=== PATIENT | male | born 1950 | race African-American/Black ===

== ENCOUNTER 2019-07-13 11:59 | Inpatient (IN) | payer MEDICARE, BC ==
[2019-07-13] VITALS (13 sets, daily range): BP systolic 93–123; BP diastolic 64–93; BMI 28.6
[~2019-07-13] VITALS: Ht 177.8 cm; Wt 94.7 kg
--- NOTE | 2019-07-13 14:00 | NUR ---
SPOKE TO RN AT [facility] FOR REPORT - REPORT WAS GIVEN TO CNC LASER OPERATOR - OUTSIDE RN REPEATED REPORT TO THIS RN - 1410 PT TRANSFERRED TO UNIT VIA EMT - VIA STRETCHER WITH TWO EMS PERSONS - TRANSFERRED TO BED - O2 PLACED AT 6 L/NC
[2019-07-13 15:14] LABS: APPEARANCE CLOUDY (CLEAR); BILIRUBIN NEGATIVE (NEGATIVE); COLOR DK YELLOW (YELLOW); GLUCOSE NEGATIVE (NEGATIVE); KETONE NEGATIVE (NEGATIVE); NITRITE NEGATIVE (NEGATIVE); PROTEIN 3+ mg/dL (NEGATIVE); RED CELLS - URINE 0-5 /hpf (0-5); SPECIFIC GRAVITY 1.025 (1.005-1.020); UROBILINOGEN NORMAL (NORMAL); WHITE CELLS - URINE NSEEN /hpf (0-5)
[2019-07-13 15:18] LABS: CREATININE - URINE 220.9 mg/dL (30-125); PROTEIN - URINE 525.7 mg/dL (0.0-11.9)
[2019-07-13] MEDS ORDERED: PACERONE400 MG PO (15:20)
[2019-07-13] MEDS ORDERED: BAYER CHEWABLE81 MG PO (15:20)
[2019-07-13] MEDS ORDERED: LINZESS145 MCG PO (15:21)
[2019-07-13] MEDS ORDERED: FUROSEMIDE40 MG PO (15:21)
[2019-07-13] MEDS ORDERED: MULTI-DAY VITAM1 TAB PO (15:23)
[2019-07-13] MEDS ORDERED: K-DUR20 MEQ PO (15:23)
[2019-07-13 15:24] LABS: BASOPHILS 0.1 % (0-2); EOSINOPHILS 2.8 % (0-7); HEMATOCRIT 39.4 % (42.0-54.0); HEMOGLOBIN 13.3 g/dL (13.5-17.5); IMMATURE GRANULOCYTES 0.8 % (0-5); LYMPHOCYTES 2.8 % (15-50); MCH 24.8 pg (26.0-34.0); MCHC 33.8 g/dL (31.0-37.0); MCV 73.4 fL (80.0-100.0); MONOCYTES 6.3 % (2-11); NEUTROPHILS 87.2 % (40-80); PLATELET COUNT 92 10x3/uL (130-400); RBC 5.37 10x6/uL (4.20-6.10); RDW 19.4 % (11.5-14.5); WBC 15.1 10x3/uL (4.8-10.8)
[2019-07-13] MEDS ORDERED: SENNA LAXATIVE8.6 MG PO (15:24)
[2019-07-13] MEDS ORDERED: METOLAZONE2.5 MG PO (15:26)
[2019-07-13] MEDS ORDERED: ENTRESTO 24 MG1 EACH PO (15:27)
[2019-07-13] MEDS ORDERED: MAGNESIUM OXID250 MG PO (15:28)
[2019-07-13] MEDS ORDERED: COREG 3.1253.125 MG PO (15:28)
[2019-07-13] MEDS ORDERED: ELIQUIS5 MG PO (15:28)
[2019-07-13] MEDS ORDERED: REMERON15 MG PO (15:29)
[2019-07-13] MEDS ORDERED: ZYLOPRIM300 MG PO (15:30)
[2019-07-13] MEDS ORDERED: COLCRYS0.6 MG PO (15:30)
[2019-07-13] MEDS ORDERED: OXYBUTYNIN CHLOR5 MG PO (15:31)
[2019-07-13 15:33] LABS: APTT 32.6 SECONDS (22.8-39.4); PROTIME 17.5 SECONDS (11.6-15.0)
[2019-07-13 15:50] LABS: D-DIMER-QUANTITATIVE > 20.00 ug/mLFEU (0.20-0.54)
--- NOTE | 2019-07-13 15:50 | NUR ---
NOTIFIED BY LAB O F CRITICAL LAB D-DIMER >20.00 - NOTIFIED DR. HALL - ORDERED VQ SCAN AND TRYALISYS PLACEMENT - CONSULTED MIKEY - PAGED PER PROTOCOL
[2019-07-13 15:56] LABS: CKMB 1.4 U/L (0.0-3.6); CREATINE KINASE 273 UL (21-232)
--- NOTE | 2019-07-13 15:59 | NUR ---
NOTIFIED MED IMAGING OF VQ SCAN CRITICAL
--- NOTE | 2019-07-13 16:11 | NUR ---
DISCUSSED TRIALYSIS PLACEMENT WITH PT - PT AGREED - CPOC
[2019-07-13 16:14] LABS: ALBUMIN 2.9 g/dL (3.4-5.0); ANION GAP 20.8 mmol/L (8-16); BILIRUBIN - TOTAL 1.45 mg/dL (0.2-1.3); CARBON DIOXIDE 22.4 mmol/L (21.0-32.0); CREATININE - SERUM 4.5 mg/dL (0.6-1.3); MAGNESIUM - SERUM 2.1 mg/dL (1.8-2.4); PROTEIN - SERUM 6.5 g/dL (6.4-8.2); T4 THYROXIN - FREE 1.64 ng/dL (0.76-1.46); THYROID STIMULATING HORMONE 3.34 uIU/mL (0.36-3.74)
[2019-07-13 16:16] LABS: POTASSIUM - SERUM 6.2 mmol/L (3.5-5.1)
[2019-07-13 16:19] LABS: TROPONIN-I 0.303 ng/mL (0.000-0.060)
[2019-07-13 16:30] LABS: % SATURATION 55 % (15-55); IRON 106 ug/dl (35-150); TOTAL IRON BIND CAPACITY 191 ug/dl (260-445); UNSAT IRON BIND CAPACITY 85 ug/dl (150-375)
--- NOTE | 2019-07-13 17:15 | NUR ---
DR. JENSEN ON UNIT FOR TRIALYSISI PLACEMENT - ATTEMPT X 2 - 4X4 PLACED ON RIGHT SIDE IJ - CLEANED PT AND CHNEGED BED CLOTHES - XRAY AT BEDSIDE FOR ASSESSMENT - DR. JENSEN ORDERED ABLE TO USE IJ -
--- NOTE | 2019-07-13 18:25 | NUR ---
DR. JENSEN CALLED - WILL BE ON UNIT FOR TRIALYSIS NEEDS 19 OR 20 CURVED, AND STAT ULTRASOUND. PER COLLECTIONS OFFICER
--- NOTE | 2019-07-13 19:30 | NUR ---
REPORT GIVEN TO ONCOMING RN - PT TRANSFERED TO [facility] FOR VJ SCAN PER ORDER -
--- NOTE | 2019-07-13 19:30 | NUR ---
REPORT RECEIVED FROM OFFGOING NURSE. PT IN RADIOLOGY FOR VQ SCAN WITH DAY SHIFT CHARGE NURSE NITHIN VILLASEÑOR. AFTER RECEIVING REPORT THIS NURSE WENT TO PT IN RADIOLOGY. PORTABLE MONITOR NOT WORKING IN RADIOLOGY PT ON DOBUTAMINE GTT PT DOES ANSWER QUESTIONS APPROPRIATELY WILL FULLY ASSESS WHEN BACK TO ICU ROOM.
--- NOTE | 2019-07-13 20:15 | NUR ---
PT BACK TO ROOM FROM RADIOLOGY PLACED BACK ON GOLF COURSE RANGER.
--- NOTE | 2019-07-13 20:15 | NUR ---
INITIAL ASSESSMENT COMPLETE PT ORIENTED TO PERSON PLACE NOT TO TIME AND DOES NOT UNDERSTAND WHY HE IS IN ICU. NEERU FOLLOWS COMMANDS. DENIES PAIN AT THIS TIME. CM ALARMS ON AND AUDIBLE. PT HAS PACER/DEFIB HE STATES WAS PLACED END OF LAST YEAR. RESP SHALLOW ENCOURAGED PT TO BREATHE DEEP AND TCDB. O2 PER HFNC AT 8LPM O2 SAT 96%. REL CLEAR BREATH SOUNDS. ABD SOFT ACTIVE BS. HENDRIX PRESENT AND DRAINING TO BSD. PPP BLE WITH GENERALIZED EDEMA. PT HAS RIGHT IJ TRIALYSIS WITH DOBUTAMINE INFUSING AT SET RATE OF [address] JENSEN PLACED AFTER FAILED ATTEMPT TO LEFT IJ, DRESSING TO LEFT IJ CLEAN DRY AND INTACT. SKIN WDI. BED LOW CALL LIGHT IN REACH SR UP TIMES 3 FOR BED MOBILITY AND SAFETY. WILL CONTINUE TO MONITOR
--- NOTE | 2019-07-13 20:30 | NUR ---
PTS FAMILY AND TWO SONS AT BEDSIDE FOR VISITATION UPDATE GIVEN AND QUESTIONS ANSWERED.
--- NOTE | 2019-07-13 22:00 | NUR ---
ANSWERED PTS CALL LIGHT HE IS REQUESTING BED ARSHAD.
--- NOTE | 2019-07-13 22:15 | NUR ---
ANSWERED PTS CALL LIGHT FINISHED USING BED ARSHAD SMALL LIGHT BROWN LIQUID STOOL CHG BATH AND COMPLETE LINEN CHANGE. PT ABLE TO TURN INDEPENDENTLY BUT DOES GET SOB WITH EXERTION.
--- NOTE | 2019-07-13 22:45 | NUR ---
PATIENT ACCIDENTALLY PULLED IV TO RT HAND. IV RESITED. 20 GAUGE TO RT FOREARM. FLUIDS CONTINUED. PATIENT TOLERATED WELL.
[2019-07-13 22:51] LABS: CKMB 1.3 U/L (0.0-3.6); CREATINE KINASE 253 UL (21-232)
[2019-07-13 22:59] LABS: TROPONIN-I 0.336 ng/mL (0.000-0.060)
--- NOTE | 2019-07-13 23:40 | NUR ---
DIE SETTER AT BEDSIDE
--- NOTE | 2019-07-13 23:54 | NUR ---
DR HALL INFORMED VIA PHONE DVT TO RIGHT LEG ORDERED LOVENOX PT ALREADY ON LOVENOX
[2019-07-14] VITALS (25 sets, daily range): BP systolic 83–123; BP diastolic 43–94
--- NOTE | 2019-07-14 02:33 | NUR ---
ANSWERED PATIENT CALL LIGHT, PATIENT DONE WITH BED ARSHAD. PATIENT HAD LARGE AMOUNT OF LIQUID LIGHT BROWN STOOLS. COMPLETE BED PAD CHANGE AND GOWN CHANGE. PATIENT POSITIONED, SHEET PROVIDED. BED LOWERED/LOCKED AND CALL LIGHT WITHIN REACH. WILL CONTINUE TO MONITOR.
--- NOTE | 2019-07-14 04:00 | NUR ---
ANSWERED PTS CALL LIGHT REQUESTING BED ARSHAD MODERATE LIQUID BROWN STOOL PARTIAL LINEN CHANGE PT ABLE TO REPOSITION SELF
[2019-07-14 05:46] LABS: BASOPHILS 0.1 % (0-2); EOSINOPHILS 0.1 % (0-7); HEMATOCRIT 32.8 % (42.0-54.0); IMMATURE GRANULOCYTES 0.4 % (0-5); LYMPHOCYTES 3.4 % (15-50); MCH 24.2 pg (26.0-34.0); MCHC 33.5 g/dL (31.0-37.0); MCV 72.2 fL (80.0-100.0); RBC 4.54 10x6/uL (4.20-6.10); RDW 18.7 % (11.5-14.5); WBC 13.6 10x3/uL (4.8-10.8)
[2019-07-14 05:49] LABS: PLATELET COUNT 69 10x3/uL (130-400)
[2019-07-14 06:23] LABS: CALCIUM 8.3 mg/dL (8.5-10.1); CARBON DIOXIDE 22.7 mmol/L (21.0-32.0); CHLORIDE - SERUM 107 mmol/L (98-107); CKMB 3.1 U/L (0.0-3.6); CREATINE KINASE 260 UL (21-232); CREATININE - SERUM 4.4 mg/dL (0.6-1.3); SODIUM 141 mmol/L (136-145); UREA NITROGEN 57 mg/dL (7-18); VANCOMYCIN - TROUGH 10.3 ug/mL (10.0-20.0); eGFR NON AFRICAN AMERICAN 14 mL/min (90-120)
[2019-07-14 06:25] LABS: CALC OSMOLALITY 301 mosm/kg (275-300); GLUCOSE 192 mg/dL (74-106); POTASSIUM - SERUM 4.7 mmol/L (3.5-5.1); TROPONIN-I 0.353 ng/mL (0.000-0.060)
[2019-07-14 07:01] LABS: PLATELET ESTIMATE DECREASED; PLATELET MORPHOLOGY GIANT PLTS PRESENT
--- NOTE | 2019-07-14 07:21 | NUR ---
SHIFT REPORT RECEIVED. PT RESTING. PT ABLE TO VERIFY NAME AND DATE OF . DENIES HAVING PAIN AT THIS TIME. ON 7L OF O2 VIA HIGH FLOW NC. O2 SAT 98%. VSS. HENDRIX IN PLACE WITH YELLOW URINE NOTED. HAS RIJ TRIALYSIS WITH DOBUTAMINE INFUSING. SEE IV FLOWSHEET FOR RATE. 20 G PIV NOTED ON RIGHT FOREARM, SALINE LOC. PULLED UP AND REPOSITIONED FOR COMFORT. BED LOW POSITION. SIDE RAILS UP X 2. NO FURTHER NEEDS. FULL ASSESSMENT CHARTED IN FLOWSHEET. WILL CONTINUE TO MONITOR.
--- NOTE | 2019-07-14 08:58 | NUR ---
AM MEDS GIVEN AT THIS TIME.
--- NOTE | 2019-07-14 10:28 | NUR ---
CVP MONITORING INITIATED PER DR. CORRALES. CURRENT CPV IS 16. ELECTRONIC GAME DEVELOPER IN ROOM A THIS TIME. WILL CONTINUE TO MONITOR.
--- NOTE | 2019-07-14 12:53 | NUR ---
DR. HALL AT BEDSIDE. WANTS STRICT I&O FOR THIS PATIENT.
--- NOTE | 2019-07-14 14:00 | NUR ---
CHG BATH GIVEN. COMPLETE LINEN CHANGE PROVIDED. HENDRIX CARE PERFORMED. PT TOLERATED WELL. ON 3L OF O2 VIA HIGH FLOW NC. NO FURTHER NEEDS AT THIS TIME. WILL CONTINUE TO MONITOR.
--- NOTE | 2019-07-14 15:35 | NUR ---
DR. ESCOBEDO PAGED AT THIS TIME TO NOTIFY OF CONSULT.
--- NOTE | 2019-07-14 18:40 | NUR ---
MOHIT HURTADO PATIENTS SON CALLED TO GET UPDATE. NO PASSWORD SET UP. VERIFIED PT'S NAME AND DATE OF . BRIEF UPDATE GIVEN. ENCOURAGED HIM TO SET UP PASSWORD NEXT TIME HE OR A FAMILY MEMBER CAME TO SEE PATIENT.
--- NOTE | 2019-07-14 19:40 | NUR ---
ACCOMPANIED PATIENT TO RADIOLOGY FOR SCAN, UPON ENTERING CT AREA, PATIENT STATED THAT HE "WANTED A PHONE TO CALL HIS " I STATED TO PATIENT THERE WAS NO PHONE IN CT AREA AND ONCE SCAN WAS DONE I WOULD ASSIST PATIENT WITH CALLING HIS . PATIENT REFUSED SCAN AND STATED "NO I WANT TO CALL HER NOW. TAKE ME BACK TO MY ROOM AND LET ME HAVE THE PHONE." I AGAIN TRIED TO REASON WITH PATIENT AND STATED THAT SCAN WOULD TAKE A FEW MINUTES THEN I WOULD BE MORE THAN HAPPY TO HELP HIM WITH A PHONE CALL. PATIENT ADAMANTLY REFUSED SCAN AND REQUESTED TO BE TAKEN BACK TO ROOM. KASI MASON PRIMARY NURSE CALLED. .
--- NOTE | 2019-07-14 19:58 | NUR ---
PAGED DR CORRALES INFORMED PT REFUSED CT SCAN. NO NEW ORDERS AT THIS TIME
--- NOTE | 2019-07-14 20:02 | NUR ---
CALLED [facility] PTS SPOUSE INFORMED OF PT REFUSED CT SCAN AND WANTED TO TALK TO HER. PTS SPOUSE STATED SHE WOULD BE HERE IN AM TRANSFERRED CALL TO PTS ROOM.
--- NOTE | 2019-07-14 22:00 | NUR ---
PATIENT SLEEPING. VITAL SIGNS WNL. IV INFUSING WITHOUT SIGNS OF INFILTRATION. BED LOWERED/LOCKED. CALL LIGHT WITHIN REACH. WILL CONTINUE TO MONITOR.
[2019-07-15] VITALS (23 sets, daily range): BP systolic 89–114; BP diastolic 56–85; Ht 177.8 cm; Wt 94.7 kg
--- NOTE | 2019-07-15 | NUR ---
PATIENT SLEEPING. NO DISTRESS NOTED, VITAL SIGNS WNL. IV INFUSING WITHOUT SIGNS OF INFILTRATION. BED LOWERED/LOCKED. CALL LIGHT WITHIN REACH. WILL CONTINUE TO MONITOR.
--- NOTE | 2019-07-15 02:00 | NUR ---
PATIENT SLEEPING. NO DISTRESS NOTED. IV INFUSING WITHOUT SIGNS OF INFILTRATION. VITAL SIGNS WNL. BED LOWERED/LOCKED. CALL LIGHT WITHIN REACH. WILL CONTINUE TO MONITOR.
--- NOTE | 2019-07-15 04:00 | NUR ---
PATIENT SLEEPING AND IN NO DISTRESS. VITAL SIGNS WNL. IV INFUSING WITHOUT SIGNS OF INFILTRATION. BED LOWERED/LOCKED. CALL LIGHT WITHIN REACHED. WILL CONTINUE TO MONITOR.
[2019-07-15 05:46] LABS: BASOPHILS 0.1 % (0-2); EOSINOPHILS 0.2 % (0-7); HEMATOCRIT 33.6 % (42.0-54.0); HEMOGLOBIN 11.3 g/dL (13.5-17.5); IMMATURE GRANULOCYTES 0.3 % (0-5); MCH 24.3 pg (26.0-34.0); MCHC 33.6 g/dL (31.0-37.0); MCV 72.3 fL (80.0-100.0); MONOCYTES 6.9 % (2-11); NEUTROPHILS 90.5 % (40-80); RBC 4.65 10x6/uL (4.20-6.10); WBC 12.8 10x3/uL (4.8-10.8)
[2019-07-15 05:48] LABS: PLATELET COUNT 52 10x3/uL (130-400)
[2019-07-15 05:55] LABS: APTT 37.2 SECONDS (22.8-39.4); INR 1.53 (0.85-1.17); PROTIME 17.8 SECONDS (11.6-15.0)
--- NOTE | 2019-07-15 06:00 | NUR ---
NO DISTRESS NOTED. PATIENT SLEEPING QUIETLY. BED LOWERED/LOCKED. CALL LIGHT WITHIN REACH. IV INFUSING WITHOUT SIGNS OF INFILTRATION. WILL CONTINUE TO MONITOR.
[2019-07-15 06:17] LABS: ALBUMIN 2.2 g/dL (3.4-5.0); BILIRUBIN - TOTAL 1.54 mg/dL (0.2-1.3); CALCIUM 8.4 mg/dL (8.5-10.1); CARBON DIOXIDE 25.6 mmol/L (21.0-32.0); CREATININE - SERUM 3.8 mg/dL (0.6-1.3); PHOSPHOROUS 4.4 mg/dL (2.5-4.9); PROTEIN - SERUM 6.1 g/dL (6.4-8.2); VANCOMYCIN - RANDOM 10.5 ug/mL (10.0-20.0)
[2019-07-15 06:20] LABS: ANION GAP 15.2 mmol/L (8-16); POTASSIUM - SERUM 3.8 mmol/L (3.5-5.1)
--- NOTE | 2019-07-15 10:11 | NUR ---
AT BEDSIDE. WORRIED BECAUSE PATIENT HAD REFUSED CT SCAN LAST NIGHT. LET HER KNOW THAT HE HAS AGREED THIS MORNING TO HAVE CT SCAN DONE.
--- NOTE | 2019-07-15 11:16 | NUR ---
PT RETURNED FROM CT
--- NOTE | 2019-07-15 11:38 | NUR ---
BLOOD DRAW PERFORMED FROM TRIALYSIS CATH. FLUSHED PER PROTOCOL.
--- NOTE | 2019-07-15 12:40 | NUR ---
AT BEDSIDE. ASKED ABOUT RESULTS OF CT SCAN. PT POSITION ADJUSTED
--- NOTE | 2019-07-15 14:30 | CN ---
PATIENT NAME:VANESA HURTADO MEDICAL RECORD: [id number] : 50 LOCATION:[id number] ADMIT DATE: 07/13/19 ACCOUNT: [id number] CONSULTING PHYSICIAN: PHYLICIA MONREAL MD REFERRING PHYSICIAN: MILLIE HALL MD DATE OF CONSULTATION: 07/14/2019 HISTORY OF PRESENT ILLNESS: A 69-year-old gentleman with known history of coronary artery disease, status post intervention. He has a history of severe cardiomyopathy of 20%. Transferred from outside hospital after found to be hyperkalemic with elevated troponin. The patient is a poor historian. He apparently has been not doing well for at least the past week or so. We are asked to see her concerning cardiovascular status. MEDICATIONS ON TRANSFER: Include Eliquis 5 mg p.o. daily, amiodarone 400 p.o. daily, carvedilol 3.125 b.i.d., Entresto 26/24 one p.o. b.i.d., aspirin 81 daily, Lasix 40 daily, metolazone 2.5 three times a week, and Linzess 145 daily. SOCIAL HISTORY: Unobtainable due to the patient's factors. REVIEW OF SYSTEMS: Unobtainable due to the patient's factors. PHYSICAL EXAMINATION: GENERAL: Somewhat a poor historian, in no acute distress. He does have few small breathing. VITAL SIGNS: Blood pressure 112/77. Pulse 107 and regular. HEENT: Normocephalic and atraumatic. NECK: No bruits noted. HEART: Regular. II/ systolic ejection murmur. S3 gallop is noted. LUNGS: Fair air excursion at best. ABDOMEN: Soft and nontender. EXTREMITIES: Pulses are decreased, 1+, with no edema. IMPRESSION: Difficult to interpret enzymes in view of the chronic renal insufficiency, etc. These are flat on a Louise curve. Suspect he is probably approaching true end-stage cardiomyopathy. Continue supportive measures as we are doing. TRANSINT:[id number] Voice Confirmation ID: [id number] DOCUMENT ID: [id number] PHYLICIA MONREAL MD at 1430 CC: [id number] DICTATION DATE: 07/14/19 1043 SEPTIC PUMP TRUCK DRIVER: 07/14/19 1413 ADM IN [facility] [address] [place] [address]
--- NOTE | 2019-07-15 14:30 | EC ---
PATIENT:VANESA HURTADO DATE OF SERVICE: 07/13/19 SEX: M MEDICAL RECORD: [id number] DATE OF : 50 [place] [place] AGE OF PATIENT: 69 ADMISSION DATE: 07/13/19 REFERRING PHYSICIAN: INTERPRETING PHYSICIAN: PHYLICIA MONREAL MD ECHOCARDIOGRAM REPORT ECHO CHARGES 4 ECHO COMPLETE Date: 07/14/19 CLINICAL DIAGNOSIS: CHF ECHOCARDIOGRAPHIC MEASUREMENTS (adult normal given) AC root (d.<3.7cm) 3.6 cm LV Septum d (<1.2 cm> 2.2 cm Valve Excursion 2.0 cm LV Septum (systole) 2.6 cm Left Atria (s.<4.0cm> 3.6 cm LVPW d(<1.2cm) 2.1 cm RV (d.<2.3cm) 3.0 cm LVPW (sytole) 2.3 cm LV diastole(<5.6CM) 4.4 cm MV E-F(>70mm/sec) cm LV systole 3.3 cm LVOT Diameter 2.0 cm MV exc.(>10mm) cm Est.ejection fraction (50-75%) % DOPPLER: LVIT cm/sec A 24 cm/sec E 68 cm/sec LA cm/sec RVSP 37.3 mmHg LVOT 80 cm/sec AOP1/2T m/s Asc. Ao 120 cm/sec RVOT 55 cm/sec RA cm/sec PA 70 cm/sec AV Gradient Peak 5.7 mmHg AV Mean 3.5 mmHg AV Area 2.1 cm MV Gradient Peak 2.3 mmHg MV Mean 1.0 mmHg MV Area cm COMMENTS: Resident Caregiver: Claire HOWELL [employer] Counter Sales Person: 3 Dr. Mcallister TAPE# PACS Pericardial Effusion N DATE OF SERVICE: Adequate 2D, color flow, spectral Doppler, and M-mode. LVH is present. LV internal dimensions are dilated. LV is severely globally hypokinetic with reduced EF, estimated EF 15% to 20%. Aortic valve is tricuspid. No evidence of stenosis by Doppler interrogation. Left atrium is normal at 3.6 cm. Mitral valve shows no prolapse. Mild MR. Right-sided chambers grossly normal. bilateral to mildly dilated, severe TR by color flow imaging. TRANSINT:[id number] Voice Confirmation ID: [id number] DOCUMENT ID: [id number] ECHOCARDIOGRAM REPORT [id number] VANESA HURTADO GREGORY A MD at 1430 CC: [id number] DICTATION DATE: 07/15/19919 PRODUCTION ILLUSTRATOR: 07/15/19 09 ADM IN [place] [id number] [place] [id number]
--- NOTE | 2019-07-15 15:30 | NUR ---
CHG BATH PROVIDED. HENDRIX CARE PROVIDED. PT REPOSITIONED FOR COMFORT.
--- NOTE | 2019-07-15 18:00 | NUR ---
PT ASSISTED IN REPOSITIONING. ASKING TO WATCH TELEVISION. ASSISTED WITH CHANNELS.
--- NOTE | 2019-07-15 19:00 | NUR ---
BEDSIDE REPORT AND SHIFT ASSESSMENT COMPLETE. VSS, NO SIGNS OF ACUTE DISTRESS NOTED AT THIS TIME. RESPIRATORY AT BEDSIDE. DENIES ANY NEEDS AT THIS TIME. WILL CONTINUE TO MONITOR.
--- NOTE | 2019-07-15 20:15 | NUR ---
AT BEDSIDE, PT REQUESTING SOMETHING TO EAT OR DRINK. ICE CHIPS GIVEN AND TOLERATED. WILL CONTINUE TO MONITOR.
--- NOTE | 2019-07-15 21:00 | NUR ---
PT ATE HALF A CUP OF JELLO. REQUESTING TO SLEEP. VSS, NO SIGNS OF ACUTE DISTRESS NOTED. WILL CONTINUE TO MONITOR.
--- NOTE | 2019-07-15 23:00 | NUR ---
REASSESSMENT COMPLETE. DENIES NEEDS AT THIS TIME. WILL CONTINUE TO MONITOR.
[2019-07-16] VITALS (25 sets, daily range): BP systolic 81–104; BP diastolic 45–74
--- NOTE | 2019-07-16 01:00 | NUR ---
PT SLEEPING. VSS, NO SIGNS OF ACUTE DISTRESS NOTED. WILL CONTINUE TO MONITOR.
--- NOTE | 2019-07-16 02:05 | NUR ---
PT C/O BURNING SENSATION IN PENIS. HENDRIX BAG REPOSITIONED AND SLACK GIVEN TO CATHETER. WILL CONTINUE TO MONITOR.
--- NOTE | 2019-07-16 03:00 | NUR ---
REASSESSMENT COMPLETE. C/O PAIN IN BLADDER, PENIS AREA. PRN TYLENOL GIVEN. WILL CONTINUE TO MONITOR.
--- NOTE | 2019-07-16 04:00 | NUR ---
PADMINI MJEIA PAGED ABOUT BLADDER SPASMS. NEW ORDERS RECEIVED.
--- NOTE | 2019-07-16 05:00 | NUR ---
PT SLEEPING, EASY TO AROUSE. VSS, NO SIGNS OF ACUTE DISTRESS NOTED. DENIES NEEDS AT THIS TIME.
[2019-07-16 05:25] LABS: ANION GAP 9.6 mmol/L (8-16); BILIRUBIN - TOTAL 1.79 mg/dL (0.2-1.3); CALCIUM 8.2 mg/dL (8.5-10.1); CARBON DIOXIDE 29.7 mmol/L (21.0-32.0); CREATININE - SERUM 2.9 mg/dL (0.6-1.3); POTASSIUM - SERUM 3.3 mmol/L (3.5-5.1); PROTEIN - SERUM 5.8 g/dL (6.4-8.2)
[2019-07-16 05:37] LABS: BASOPHILS 0 % (0-2); EOSINOPHILS 0.4 % (0-7); HEMATOCRIT 30.7 % (42.0-54.0); HEMOGLOBIN 10.3 g/dL (13.5-17.5); IMMATURE GRANULOCYTES 0.6 % (0-5); LYMPHOCYTES 2.3 % (15-50); MCH 24.3 pg (26.0-34.0); MCHC 33.6 g/dL (31.0-37.0); MCV 72.4 fL (80.0-100.0); NEUTROPHILS 87.7 % (40-80); RBC 4.24 10x6/uL (4.20-6.10); RDW 18.8 % (11.5-14.5); WBC 10.5 10x3/uL (4.8-10.8)
[2019-07-16 05:40] LABS: PLATELET COUNT 48 10x3/uL (130-400)
[2019-07-16 06:06] LABS: PLATELET ESTIMATE DECREASED
--- NOTE | 2019-07-16 06:14 | NUR ---
CHG BATH AND LINEN CHANGE COMPLETE. VSS, NO SIGNS OF ACUTE DISTRESS NOTED. WILL CONTINUE TO MONITOR.
--- NOTE | 2019-07-16 06:47 | NUR ---
DR FIGUEROA AT BEDSIDE, NEW ORDERS RECEIVED.
--- NOTE | 2019-07-16 07:00 | NUR ---
PT REPORT RECEIVED FROM INJECTION MOLDING OPERATOR NURSE. VSS. NO SIGNS OF DISTRESS. WILL CONTINUE TO MONITOR
--- NOTE | 2019-07-16 09:00 | NUR ---
PT AM MEDICATIONS GIVEN. VSS. WILL CONTINUE TO MONITOR
--- NOTE | 2019-07-16 11:00 | NUR ---
PT REASSESSMENT COMPLETED. NO SIGNS OF DISTRESS NOTED. WILL CONTINUE TO MONITOR
[2019-07-16 11:10] LABS: PSA - % FREE 14.9 % (()); PSA - FREE 1.71 ng/mL; PSA - TOTAL 11.5 ng/mL (0.0-4.0)
[2019-07-16 11:32] LABS: APTT 34.4 SECONDS (22.8-39.4); INR 1.45 (0.85-1.17)
[2019-07-16 11:36] LABS: ALBUMIN 2.1 g/dL (3.4-5.0); BILIRUBIN - DIRECT 1.44 mg/dL (0.00-0.30); BILIRUBIN - INDIRECT 0.43 mg/dL (0.00-1.00); BILIRUBIN - TOTAL 1.87 mg/dL (0.2-1.3); PROTEIN - SERUM 5.7 g/dL (6.4-8.2)
[2019-07-16 12:09] LABS: HEPATITIS C ANTIBODY 0.1 S/CO RAT (0.0-0.9)
--- NOTE | 2019-07-16 13:00 | NUR ---
NEW IV STARTED. 20 GUAGE LEFT HAND. PATENT. PT TOLERATED WELL. WILL CONTINUE TO MONITOR
[2019-07-16 14:09] LABS: CEA 27.4 ng/mL (0.0-4.7)
--- NOTE | 2019-07-16 15:00 | NUR ---
PT REASSESSMENT COMPLETED. NO COMPLAINTS AT THIS TIME. WILL CONTINUE TO MONITOR
--- NOTE | 2019-07-16 16:43 | NUR ---
RESPIRATORY CULTURE ORDER CANCELLED DUE TO PT NOT COUGHING. NO PRODUCTION OF SPUTUM
--- NOTE | 2019-07-16 17:00 | NUR ---
PT GIVEN CHG BATH. TOLERATED WELL. VSS. WILL CONTINUE TO MONITOR
--- NOTE | 2019-07-16 18:56 | MORECARE ---
CASE MANAGEMENT DISCHARGE SUMMARY PATIENT: VANESA HURTADO UNIT: [id number] ADM DATE: 07/13/19 AGE: 69 : 50 SEX: M ROOM/BED: D.2304 AUTHOR: MARIZOL MURPHY PHYSICIAN: REFERRING PHYSICIAN: MILLIE HALL MD DATE OF SERVICE: 07/16/19 Discharge Plan Patient Name: VANESA HURTADO Facility: [facility]:[place] : 1950 Planned Disposition: Home Anticipated Discharge Date: Discharge Date: Expected LOS: Initial Reviewer: [email or web address] Initial Review Date: 07/16/2019 Generated: 07/16/19 7:55 pm DCPIA - Discharge Planning Initial Assessment Updated by [email or web address]: Sangita Iglesias on 07/16/19 6:54 pm * Is the patient Alert and Oriented? Yes * How many steps to enter\exit or inside your home? * PCP OMKAR JEFFERS * [facility] * Preadmission Environment Home with Family * ADLs Independent * Equipment Walker * List name and contact numbers for known caregivers / representatives who currently or will assist patient after discharge: AMERICA HURTADO - SPOUSE- [phone] * Verbal permission to speak to the caregivers and representatives has been obtained from the patient. Yes * Community resources currently utilized None * Additional services required to return to the preadmission environment? No * Can the patient safely return to the preadmission environment? Yes * Has this patient been hospitalized within the prior 30 days at any hospital? No Patient Name: VANESA HURTADO Page [id number] at 1856 All edits/amendments must be made on the electronic document DICTATION DATE: 07/16/191854 JOURNEYMAN PLUMBER: CARLYLE 07/16/191854 RPT#: [id number] DC DATE: STATUS: ADM IN [facility] [address] [place] [address] END OF REPORT
--- NOTE | 2019-07-16 19:00 | NUR ---
REPORT RECIEVED, PT RESTING IN BED WITH NO SIGNS OF ACUTE DISTRESS. PT HAS RIGHT IJ TRIALYSIS ACCESS, R FA PIV, AND LT HAND PIV, SEE IV FLOWSHEET. ASSESSMENT COMPLETED, SEE FLOWSHEET. 3L O2 VIA NC, RIGHT LEG SWOLLEN AND TIGHT. WILL CONTINUE TO MONITOR.
--- NOTE | 2019-07-16 19:03 | MORECARE ---
CASE MANAGEMENT DISCHARGE SUMMARY PATIENT: VANESA HURTADO UNIT: [id number] ADM DATE: 07/13/19 AGE: 69 : 50 SEX: M ROOM/BED: D.2304 AUTHOR: JEFFREY,DOC PHYSICIAN: REFERRING PHYSICIAN: MILLIE HALL MD DATE OF SERVICE: 07/16/19 Discharge Plan Patient Name: VANESA HURTADO Facility: [facility]:[place] : 1950 Planned Disposition: Home Anticipated Discharge Date: Discharge Date: Expected LOS: Initial Reviewer: [email or web address] Initial Review Date: 07/16/2019 Generated: 07/16/19 8:02 pm Comments DCP- Discharge Planning Updated by [email or web address]: Sangita Iglesias on 07/16/19 5:[address] Patient Name: VANESA HURTADO Admission Status: Elective Accout number: [id number] Admission Date: 07-13-2019 : 1950 Admission Diagnosis:ACUTE KIDNEY FAILURE, UNSPECIFIED Attending: MILLIE HALL Current LOS: 3 Anticipated DC Date: Planned Disposition: Home Primary Insurance: MEDICARE A & B Discharge Planning Comments: CM met with patient at bedside after explaining CM role and obtaining verbal consent. Patient lives at home with his Amy where he is independent with his care and plans to return there upon discharge. Patient feels this would be a safe discharge. CM discussed availability / needs of home health and medical equipment. Patient denies any discharge needs at this time. Patient states he will have his family drive him home upon discharge. CM will continue to follow and assist as needed with discharge planning / needs. Broom Machine Operator: Sangita Iglesias DCPIA - Discharge Planning Initial Assessment Updated by [id number]: Sangita Iglesias on 07/16/19 6:54 pm * Is the patient Alert and Oriented? Yes * How many steps to enter\exit or inside your home? * PCP OMKAR JEFFERS * Pharmacy [facility] * Preadmission Environment Home with Family * ADLs Independent * Equipment Walker * List name and contact numbers for known caregivers / representatives who currently or will assist patient after discharge: AMY HURTADO - SPOUSE- [phone] * Verbal permission to speak to the caregivers and representatives has been obtained from the patient. Yes * Community resources currently utilized None * Additional services required to return to the preadmission environment? No * Can the patient safely return to the preadmission environment? Yes * Has this patient been hospitalized within the prior 30 days at any hospital? No Last DP export: 07/16/19 5:56 p Patient Name: VANESA HURTADO Page [id number] at 1903 All edits/amendments must be made on the electronic document DICTATION DATE: 07/16/191901 DENTAL CHAIRSIDE ASSISTANT: CARLYLE 07/16/191901 RPT#: [id number] DC DATE: STATUS: ADM IN [facility] [address] [place] [address] END OF REPORT
--- NOTE | 2019-07-16 21:00 | NUR ---
PT AAOX4, NO SIGNS OF ACUTE DISTRESS. VITALS STABLE, WILL CONTINUE TO MONITOR.
--- NOTE | 2019-07-16 23:00 | NUR ---
PT RESTING IN BED, DISORIENTED TO TIME AND SITUATION. REORIENTED PT. VITALS STABLE, NO SIGNS OF ACUTE DISTRESS.
[2019-07-17] VITALS (30 sets, daily range): BP systolic 84–113; BP diastolic 52–96
--- NOTE | 2019-07-17 00:25 | NUR ---
PATIENT IS VERY AGITATED AND WANTING TO SEE A PHYSICIAN. PATIENT STATES WE ARE CLOSED DOWN AND NOT TAKING CARE OF HIM. AFTER SEVERAL ATTEMPS TO GET PT TO CALM DOWN KIN ANDERSONN WAS CALLED TO SPEAK WITH PATIENT. PATIENT WOULD NOT ANSWER ANY QUESTIONS FOR NURSE TO ASSESS HIS ORIENTATION.
--- NOTE | 2019-07-17 00:44 | NUR ---
PATIENT IS QUIET AND RESTING AT THIS TIME AFTER SHAUN MEJIA SPOKE WITH PATIENT.
--- NOTE | 2019-07-17 03:47 | NUR ---
PAGED DR ESCOBEDO REGARDING ARGATROBAN PROTOCOL, WILL WAIT FOR A CALL BACK
--- NOTE | 2019-07-17 04:06 | NUR ---
RECIEVED CALL FROM DR ESCOBEDO TO CONTINUE ARGATROBAN PROTOCOL LISTED
--- NOTE | 2019-07-17 05:02 | NUR ---
PT AGITATED, STATING THAT "THE DOCTORS ARENT GONNA DO ANYTHING FOR ME", WELL CONSTANTLY REMOVING NC AND O2 SENSOR. VITALS STABLE, WILL CONTINUE TO MONITOR CLOSELY.
[2019-07-17 05:22] LABS: APTT 146.9 SECONDS (22.8-39.4)
[2019-07-17 05:24] LABS: ANION GAP 12.2 mmol/L (8-16); BILIRUBIN - TOTAL 1.68 mg/dL (0.2-1.3); CALCIUM 8.2 mg/dL (8.5-10.1); CARBON DIOXIDE 27.2 mmol/L (21.0-32.0); CREATININE - SERUM 2.3 mg/dL (0.6-1.3); POTASSIUM - SERUM 3.4 mmol/L (3.5-5.1); PROTEIN - SERUM 5.8 g/dL (6.4-8.2); VANCOMYCIN - RANDOM 13.7 ug/mL (10.0-20.0)
[2019-07-17 05:25] LABS: PHOSPHOROUS 2.8 mg/dL (2.5-4.9)
[2019-07-17 05:28] LABS: BASOPHILS 0 % (0-2); EOSINOPHILS 0.5 % (0-7); HEMATOCRIT 29.7 % (42.0-54.0); HEMOGLOBIN 9.9 g/dL (13.5-17.5); IMMATURE GRANULOCYTES 0.8 % (0-5); LYMPHOCYTES 6.2 % (15-50); MCH 24.2 pg (26.0-34.0); MCHC 33.3 g/dL (31.0-37.0); MCV 72.6 fL (80.0-100.0); MONOCYTES 8.6 % (2-11); NEUTROPHILS 83.9 % (40-80); RBC 4.09 10x6/uL (4.20-6.10); RDW 19.1 % (11.5-14.5); WBC 8.4 10x3/uL (4.8-10.8)
--- NOTE | 2019-07-17 05:29 | NUR ---
PT RIPPED OFF TRIALYSIS DRESSING, NEW DRESSING REAPPLIED AND EDUCATED ON IMPORTANCE OF NOT SCRATCHING/PULLING ON LINE.
[2019-07-17 05:30] LABS: PLATELET COUNT 74 10x3/uL (130-400)
[2019-07-17 05:45] LABS: INR 7.26 (0.85-1.17); PROTIME 61.2 SECONDS (11.6-15.0)
--- NOTE | 2019-07-17 07:00 | NUR ---
PT REPORT RECEIVED FROM CASE MAKING MACHINE OPERATOR NURSE. VSS. WILL CONTINUE TO MONITOR
--- NOTE | 2019-07-17 08:04 | NUR ---
Nutrition follow-up: Diet advanced to renal as tolerated after speech evaluation labs reviewed Wt: 202# Will provide food choices with selective menus and honor food preferences within diet restrictions. Will offer nutritional supplement RDN following.
--- NOTE | 2019-07-17 09:00 | NUR ---
PT RESTING IN BED. STARTED BACK ON BIPAP. VSS WILL CONTINUE TO MONITOR
--- NOTE | 2019-07-17 11:00 | NUR ---
PT RESTING IN BED. CURRENTLY ON BIPAP. VSS. WILL CONTINUE TO MONITOR
--- NOTE | 2019-07-17 13:00 | NUR ---
PT RESTING IN BED WATCHING TV. NO SIGNS OF DISTRESS NOTED. WILL C ONTINUE TO MONITOR
--- NOTE | 2019-07-17 15:00 | NUR ---
PT RESTING IN BED. VSS NO SIGNS OF DISTRESS. WILL CONTINUE TO MONITOR
--- NOTE | 2019-07-17 17:00 | NUR ---
PT EATING DINNER TRAY. TOLERATING WELL. NO SIGNS OF DISTRESS NOTED. WILL CONTINUE TO MONITOR
--- NOTE | 2019-07-17 20:33 | NUR ---
PTT WAS 144.0, ARGATROBAN STOPPED FOR 2 HOURS AND WILL RESTART AT 0.56 PER PROTOCOL ORDERS.
--- NOTE | 2019-07-17 22:36 | NUR ---
PT REFUSES BIPAP STATES HE CANNOT BREATHE WITH IT. IT CHOKES HIM. I ASKED HIM TO SPEAK WITH PULMONARY ABOUT IT WHEN MD ROUNDS IN AM.
[2019-07-18] VITALS (26 sets, daily range): BP systolic 82–128; BP diastolic 52–94
--- NOTE | 2019-07-18 02:34 | NUR ---
ARGATROBAN STOPPED PER PROTOCOL AFTER PTT RESULT OF 144.
--- NOTE | 2019-07-18 03:40 | NUR ---
RT HERE TO DO TREATMENT PT REFUSED ANY TREATMENT AND HAD O2 OFF REFUSING TO PUT IT BACK ON . UPON ENTERING PT ROOM HE WAS AGITATED AND REFUSED TO DO ANYTHING UPON REQUEST. AFTER TALKING PT INTO PUTTING SPO2 SENSOR HIS SPO2 WAS 93% ON RA. TRIED TO EXPLAIN TO PT WHY HE NEEDED THE OXYGEN AND HE REFUSED AT THIS TIME.
--- NOTE | 2019-07-18 03:45 | NUR ---
PATIENT SPO2 DECREASED TO 88% AT THIS TIME. UPON ENTERING PT ROOM HE WAS PLEASANT AND AGREED TO WEAR O2 HIGH FLOW AT 3L/MIN AT THIS TIME.
--- NOTE | 2019-07-18 05:20 | NUR ---
RESTARTED ARGATROBAN AT 0440 AT 0.42MG/HR PER PROTOCOL.
[2019-07-18 06:33] LABS: BASOPHILS 0.1 % (0-2); EOSINOPHILS 0.5 % (0-7); HEMATOCRIT 28.2 % (42.0-54.0); HEMOGLOBIN 9.4 g/dL (13.5-17.5); IMMATURE GRANULOCYTES 1.1 % (0-5); LYMPHOCYTES 2.8 % (15-50); MCHC 33.3 g/dL (31.0-37.0); MCV 72.1 fL (80.0-100.0); NEUTROPHILS 80.5 % (40-80); RBC 3.91 10x6/uL (4.20-6.10); RDW 18.9 % (11.5-14.5); WBC 9.2 10x3/uL (4.8-10.8)
[2019-07-18 06:34] LABS: BILIRUBIN - TOTAL 2.03 mg/dL (0.2-1.3); CALCIUM 7.8 mg/dL (8.5-10.1); CARBON DIOXIDE 29.9 mmol/L (21.0-32.0); CREATININE - SERUM 1.9 mg/dL (0.6-1.3); PROTEIN - SERUM 6.1 g/dL (6.4-8.2); VANCOMYCIN - RANDOM 13.8 ug/mL (10.0-20.0)
[2019-07-18 06:35] LABS: ANION GAP 10.1 mmol/L (8-16)
[2019-07-18 06:54] LABS: PLATELET COUNT 51 10x3/uL (130-400)
--- NOTE | 2019-07-18 07:00 | NUR ---
PT REPORT RECEIVED FROM PARTNER INTEGRATION PLANNER NURSE. VSS. WILL CONTINUE TO MONITOR
[2019-07-18 08:28] LABS: PLATELET ESTIMATE DECREASED
--- NOTE | 2019-07-18 08:49 | NUR ---
Nutrition follow-up: Diet: renal PO intake 50-75% of last 2 meals Labs reviewed; replacing K today No BM charted since admit Wt: 202# RDN following.
--- NOTE | 2019-07-18 09:00 | NUR ---
PHYSICAL THERAPY IN PT ROOM. TOLERATED WELL HOWEVER NOT STRONG ENOUGH TO SUPPORT TRUNK. WILL RETURN TOMORROW. WILL CONTINUE TO MONITOR
[2019-07-18 09:13] LABS: APTT 119.2 SECONDS (22.8-39.4)
[2019-07-18 09:15] LABS: INR 4.72 (0.85-1.17); PROTIME 43.5 SECONDS (11.6-15.0)
--- NOTE | 2019-07-18 11:00 | NUR ---
PT RESTING IN BED. NO SIGNS OF DISTRESS NOTED. CALL LIGHT WITHIN REACH. WILL CONTINUE TO MONITOR
--- NOTE | 2019-07-18 11:45 | NUR ---
PTT RESULT CALLED TO DR. ESCOBEDO, [facility] GTT GIVEN
--- NOTE | 2019-07-18 13:00 | NUR ---
PT RESTING IN BED. FAMILY AT BEDSIDE. VSS. WILL CONTINUE TO MONITOR
--- NOTE | 2019-07-18 15:00 | NUR ---
PT RESTING IN BED WITH LIGHT OFF. NO SIGNS OF DISTRESS NOTED. WILL CONTINUE TO MONITOR
--- NOTE | 2019-07-18 17:00 | NUR ---
PT TAKEN OFF BEDPAN. SMALL AMOUNT OF DIARRHEA PRESENT. WILL CONTINUE TO MONITOR
--- NOTE | 2019-07-18 19:00 | NUR ---
PT AWAKE, CONFUSED, REORIENTS EASILY, INC OF URINE, REMINDED PT HE HAS URINALS IN REACH, BATHED AND BED CHANGED
--- NOTE | 2019-07-18 21:00 | NUR ---
RESTING QUIETLY WITHOUT DISTRESS, PTT RESULTS WITHIN PARAMETERS, WILL RECHECK IN AM
--- NOTE | 2019-07-18 23:00 | NUR ---
PT AWAKE WITH HOB @ 30 DEGREES, NO C/O AT THIS TIME
[2019-07-19] VITALS (23 sets, daily range): BP systolic 88–113; BP diastolic 58–86
--- NOTE | 2019-07-19 01:00 | NUR ---
PT RESTING QUIETLY, VITALS STABLE
--- NOTE | 2019-07-19 02:39 | NUR ---
PT PULLED OUT LEFT PIV, CONFUSED, REORIENTS EASILY
--- NOTE | 2019-07-19 04:20 | NUR ---
AM LAB DRAWN FROM RIGHT TRIALYSIS CATH
[2019-07-19 04:38] LABS: APTT 93.9 SECONDS (22.8-39.4)
[2019-07-19 04:41] LABS: INR 2.99 (0.85-1.17); PROTIME 30.3 SECONDS (11.6-15.0)
[2019-07-19 04:42] LABS: ALBUMIN 1.9 g/dL (3.4-5.0); ANION GAP 10.3 mmol/L (8-16); BILIRUBIN - TOTAL 2.47 mg/dL (0.2-1.3); CALCIUM 7.9 mg/dL (8.5-10.1); CARBON DIOXIDE 29.8 mmol/L (21.0-32.0); CREATININE - SERUM 1.5 mg/dL (0.6-1.3); POTASSIUM - SERUM 3.1 mmol/L (3.5-5.1); VANCOMYCIN - RANDOM 11.3 ug/mL (10.0-20.0)
[2019-07-19 04:44] LABS: PHOSPHOROUS 1.5 mg/dL (2.5-4.9)
--- NOTE | 2019-07-19 05:34 | NUR ---
SITED NEW 20 G IV TO LEFT HAND, PT TOLERATED WELL
--- NOTE | 2019-07-19 07:00 | NUR ---
PT REPORT RECEIVED FROM BEVEL FACE STONER AND POLISHER NURSE. PT LYING AWAKE IN BED. NO SIGNS OF DISTRESS NOTED. WILL CONTINUE TO MONITOR
--- NOTE | 2019-07-19 09:00 | NUR ---
PT HAD BM. CLEARNED UP AND GIVEN CHG BATH. DR BARBOSA AT BEDSIDE ORDERS RECEIVED. VSS WILL CONTINUE TO MONITOR
--- NOTE | 2019-07-19 11:28 | NUR ---
REPORT CALLED TO KYA ON MED 2. PREPARING TO TRANSFER PATIENT
--- NOTE | 2019-07-19 13:20 | NUR ---
patient back to ICU. no needs at this time. no distress.
--- NOTE | 2019-07-19 15:10 | NUR ---
PT RESTING IN BED. NO SIGNS OF DISTRESS NOTED. WILL CONTINUE TO MONITOR
--- NOTE | 2019-07-19 16:44 | MORECARE ---
CASE MANAGEMENT DISCHARGE SUMMARY PATIENT: VANESA HURTADO UNIT: [id number] ADM DATE: 07/13/19 AGE: 69 : 50 SEX: M ROOM/BED: D.2304 AUTHOR: JEFFREY,DOC PHYSICIAN: REFERRING PHYSICIAN: MILLIE HALL MD DATE OF SERVICE: 07/19/19 Discharge Plan Patient Name: VANESA HURTADO Facility: [facility]:[place] : 1950 Planned Disposition: Home Anticipated Discharge Date: Discharge Date: Expected LOS: Initial Reviewer: [email or web address] Initial Review Date: 07/16/2019 Generated: 07/19/19 5:44 pm DCP- Discharge Planning Updated by [email or web address]: Sangita Iglesias on 07/16/19 5:[address] Patient Name: VANESA HURTADO Admission Status: Elective Accout number: [id number] Admission Date: 07-13-2019 : 1950 Admission Diagnosis:ACUTE KIDNEY FAILURE, UNSPECIFIED Attending: MILLIE HALL Current LOS: 3 Anticipated DC Date: Planned Disposition: Home Primary Insurance: MEDICARE A & B Discharge Planning Comments: CM met with patient at bedside after explaining CM role and obtaining verbal consent. Patient lives at home with his Amy where he is independent with his care and plans to return there upon discharge. Patient feels this would be a safe discharge. CM discussed availability / needs of home health and medical equipment. Patient denies any discharge needs at this time. Patient states he will have his family drive him home upon discharge. CM will continue to follow and assist as needed with discharge planning / needs. Slitter Creaser Slotter Operator: Sangita Iglesias DCPIA - Discharge Planning Initial Assessment Updated by [email or web address]: Sangita Iglesias on 07/16/19 6:54 pm * Is the patient Alert and Oriented? Yes * How many steps to enter\exit or inside your home? * PCP OMKAR JEFFERS * [facility] * Preadmission Environment Home with Family * ADLs Independent * Equipment Walker * List name and contact numbers for known caregivers / representatives who currently or will assist patient after discharge: AMY HURTADO - SPOUSE- [phone] * Verbal permission to speak to the caregivers and representatives has been obtained from the patient. Yes * Community resources currently utilized None * Additional services required to return to the preadmission environment? No * Can the patient safely return to the preadmission environment? Yes * Has this patient been hospitalized within the prior 30 days at any hospital? No Last DP export: 07/16/19 6:03 p Patient Name: VANESA HURTADO Page 30004 at 1644 All edits/amendments must be made on the electronic document DICTATION DATE: 07/19/191643 LINE MECHANIC: CARLYLE 07/19/191643 RPT#: [id number] DC DATE: STATUS: ADM IN [facility] [address] [place] [address] END OF REPORT
--- NOTE | 2019-07-19 16:53 | MORECARE ---
CASE MANAGEMENT DISCHARGE SUMMARY PATIENT: VANESA HURTADO UNIT: [id number] ADM DATE: 07/13/19 AGE: 69 : 50 SEX: M ROOM/BED: D.2304 AUTHOR: JEFFREY,DOC PHYSICIAN: REFERRING PHYSICIAN: MILLIE HALL MD DATE OF SERVICE: 07/19/19 Discharge Plan Patient Name: VANESA HURTADO Facility: [facility]:[place] : 1950 Planned Disposition: Home Anticipated Discharge Date: Discharge Date: Expected LOS: Initial Reviewer: [email or web address] Initial Review Date: 07/16/2019 Generated: 07/19/19 5:53 pm Comments DCP- Discharge Planning Updated by [email or web address]: Sangita Iglesias on 07/19/19 3:[address] Per PT recommendations patient will need Rehab or SNF before returning home. CM attempted to speak to patient he kept dozing off and wouldn't answer questions regarding placement for strengthening. CM attempted to call spouse at [phone] no answer @ this time voicemail didn't list Amy as the contact. CM will try to get DEMETRIUS at later time. CM will continue to follow and assist as needed with discharge planning / needs. DCP- Discharge Planning Updated by [email or web address]: Sangita Iglesias on 07/16/19 5:[address] Patient Name: VANESA HURTADO Admission Status: Elective Accout number: [id number] Admission Date: 07-13-2019 : 1950 Admission Diagnosis:ACUTE KIDNEY FAILURE, UNSPECIFIED Attending: MILLIE HALL Current LOS: 3 Anticipated DC Date: Planned Disposition: Home Primary Insurance: MEDICARE A & B Discharge Planning Comments: CM met with patient at bedside after explaining CM role and obtaining verbal consent. Patient lives at home with his Amy where he is independent with his care and plans to return there upon discharge. Patient feels this would be a safe discharge. CM discussed availability / needs of home health and medical equipment. Patient denies any discharge needs at this time. Patient states he will have his family drive him home upon discharge. CM will continue to follow and assist as needed with discharge planning / needs. Extrusion Line Operator: Sangita Iglesias DCPIA - Discharge Planning Initial Assessment Updated by [email or web address]: Sangita Iglesias on 07/16/19 6:54 pm * Is the patient Alert and Oriented? Yes * How many steps to enter\exit or inside your home? * PCP OMKAR JEFFERS * Pharmacy [facility] * Preadmission Environment Home with Family * ADLs Independent * Equipment Walker * List name and contact numbers for known caregivers / representatives who currently or will assist patient after discharge: AMY HURTADO - SPOUSE- [phone] * Verbal permission to speak to the caregivers and representatives has been obtained from the patient. Yes * Community resources currently utilized None * Additional services required to return to the preadmission environment? No * Can the patient safely return to the preadmission environment? Yes * Has this patient been hospitalized within the prior 30 days at any hospital? No Last DP export: 07/19/19 3:44 p Patient Name: VANESA HURTADO Page 47105 at 1653 All edits/amendments must be made on the electronic document DICTATION DATE: 07/19/191652 JIG AND FIXTURE BUILDER: CARLYLE 07/19/191652 RPT#: [id number] DC DATE: STATUS: ADM IN [facility] [address] [place] [address] END OF REPORT
--- NOTE | 2019-07-19 17:05 | NUR ---
PT TRAY TAKEN TO ROOM. FAMILY AT BEDSIDE ASSISTING WITH EATING. VSS. WILL CONTINUE TO MONITOR
--- NOTE | 2019-07-19 20:23 | NUR ---
PATIENT HAD EPISODE OF WATERY BROWN STOOL IN BED PAIN. COMPLETE LINEN CHANGE AND GOWN CHANGE GIVEN. PATIENT REQUIRED MODERATE ASSIST, TOLERATED WELL. PATIENT POSITIONED. IVs INFUSING WITHOUT SIGNS OF INFILTRATION. BED LOWERED/LOCKED. CALL LIGHT WITHIN REACH. EXTRA BLANKET GIVEN. DENIES FURTHER NEEDS OR CONCERNS AT THIS TIME. WILL CONTINUE TO MONITOR.
--- NOTE | 2019-07-19 22:12 | NUR ---
PATIENT RESTING QUIETLY. VITAL SIGNS WNL. BED LOWERED/LOCKED. CALL LIGHT WITHIN REACH. IVs INFUSING WITHOUT SIGNS OF INFILTRATION. WILL CONTINUE TO MONITOR.
[2019-07-20] VITALS (30 sets, daily range): BP systolic 82–118; BP diastolic 55–101
--- NOTE | 2019-07-20 00:56 | NUR ---
PATIENT RESTING QUIETLY, NO DISTRESS NOTED. VITAL SIGNS WNL. BED LOWERED/LOCKED. CALL LIGHT WITHIN REACH. IVs INFUSING WITHOUT SIGNS OF INFILTRATION. WILL CONTINUE TO MONITOR.
--- NOTE | 2019-07-20 02:00 | NUR ---
PATIENT HAD ANOTHER EPISODE OF WATERY BROWN DIARRHEA. PATIENT RECEIVED PERINEAL CLEANSING. COMPLETE LINEN AND GOWN CHANGE REQUIRED. PATIENT TOLERATED WELL. PATIENT REPOSITIONED AND BLANKET GIVEN. IVs INFUSING WITHOUT SIGNS OF INFILTRATION. VITAL SIGNS WNL. WILL CONTINUE TO MONITOR.
--- NOTE | 2019-07-20 04:00 | NUR ---
PATIENT SLEEPING, VITAL SIGNS WNL. NO DISTRESS NOTED. IVs INFUSING WITHOUT SIGNS OF INFILTRATION. BED LOWERED/LOCKED. CALL LIGHT WITHIN REACH. WILL CONTINUE TO MONITOR.
[2019-07-20 05:03] LABS: INR 2.79 (0.85-1.17); PROTIME 28.7 SECONDS (11.6-15.0)
[2019-07-20 05:04] LABS: APTT 86.5 SECONDS (22.8-39.4)
--- NOTE | 2019-07-20 06:00 | NUR ---
PATIENT SLEEPING. NO CHANGES NOTED. WILL CONTINUE TO MONITOR.
[2019-07-20 06:03] LABS: ALBUMIN 1.9 g/dL (3.4-5.0); ANION GAP 11.4 mmol/L (8-16); BILIRUBIN - TOTAL 2.56 mg/dL (0.2-1.3); CALCIUM 7.9 mg/dL (8.5-10.1); CARBON DIOXIDE 28.4 mmol/L (21.0-32.0); CREATININE - SERUM 1.4 mg/dL (0.6-1.3); POTASSIUM - SERUM 3.8 mmol/L (3.5-5.1); PROTEIN - SERUM 6.1 g/dL (6.4-8.2); VANCOMYCIN - RANDOM 12.8 ug/mL (10.0-20.0)
--- NOTE | 2019-07-20 07:00 | NUR ---
PT RESTING IN BED C CALL BENITEZ IN REACH. VSS. PACED RHYTHM. ON 3L NC. RIGHT IJ TRIALYSIS CATH C ARGATROBAN INFUSING AT O.1MG/KG/MIN--0.5ML/HR. APTT IN TARGET RANGE. PT AWAKE AND ORIENTED. DOBUTAMINE INFUSING AT 2.5MCG/KG/MIN--6.8ML/HR. VOIDING IN URINAL. WILL CONTINUE TO MONITOR
--- NOTE | 2019-07-20 09:02 | NUR ---
RENAL CLOUD ENGAGEMENT PARTNER ROUNDED ON PATIENT. IN ROOM. VSS
--- NOTE | 2019-07-20 12:03 | NUR ---
INCREASED DOBUTAMINE DRIP FROM 2.5MCG/KG/MIN TO 3MCG/KG/MIN FOR HYPOTENSION 82/60. WILL CONTINUE TO MONITOR
--- NOTE | 2019-07-20 15:00 | NUR ---
APPLIED CONDOM CATHETER TO FOR PATIENT.
--- NOTE | 2019-07-20 17:01 | NUR ---
PATIENT GIVEN CHG BATH. ALL LINENS CHANGED
--- NOTE | 2019-07-20 20:00 | NUR ---
PATIENT RESTING QUIETLY. NO DISTRESS NOTED. VSS. BED LOWERED/LOCKED. CATHETER DRAINING, TUBING FREE OF LOOPS. IV INFUSING WITHOUT SIGNS OF INFILTRATION. WILL CONTINUE TO MONITOR.
[2019-07-21] VITALS (24 sets, daily range): BP systolic 81–108; BP diastolic 51–70
[2019-07-21 05:48] LABS: ALBUMIN 1.7 g/dL (3.4-5.0); ANION GAP 8.8 mmol/L (8-16); BILIRUBIN - TOTAL 2.45 mg/dL (0.2-1.3); CALCIUM 7.7 mg/dL (8.5-10.1); CARBON DIOXIDE 30.6 mmol/L (21.0-32.0); CREATININE - SERUM 1.5 mg/dL (0.6-1.3); POTASSIUM - SERUM 3.4 mmol/L (3.5-5.1); PROTEIN - SERUM 5.7 g/dL (6.4-8.2)
[2019-07-21 05:59] LABS: INR 2.56 (0.85-1.17); PROTIME 26.8 SECONDS (11.6-15.0)
[2019-07-21 06:00] LABS: PHOSPHOROUS 2.3 mg/dL (2.5-4.9)
--- NOTE | 2019-07-21 07:08 | NUR ---
PT HAD EPISODE OF LOOSE BROWN STOOL IN BED ARSHAD
--- NOTE | 2019-07-21 07:15 | NUR ---
AWAKES EASILY TO VERBAL STIMULI SKIN WARM AND DRY. RIJ TRIALYSIS DRESSING DRY AND INTACT. DENIES PAIN. ARGATROBAN INFUSING AT 0.5 ML HOUR. DOBUTAMINE INFUSING AT 7 MCG/KG/MIN. NO DISTRESS. MONITOR 100% PACEMAKER
--- NOTE | 2019-07-21 07:44 | NUR ---
DR. LOCKE HERE. NO NEW ORDERS
[2019-07-21 08:12] LABS: BASOPHILS 0.1 % (0-2); EOSINOPHILS 1.1 % (0-7); HEMATOCRIT 26.2 % (42.0-54.0); HEMOGLOBIN 8.7 g/dL (13.5-17.5); LYMPHOCYTES 4.5 % (15-50); MCH 23.8 pg (26.0-34.0); MCHC 33.2 g/dL (31.0-37.0); MCV 71.6 fL (80.0-100.0); MONOCYTES 8.9 % (2-11); NEUTROPHILS 84.4 % (40-80); RBC 3.66 10x6/uL (4.20-6.10); RDW 19.2 % (11.5-14.5); WBC 10.3 10x3/uL (4.8-10.8)
[2019-07-21 08:42] LABS: PLATELET COUNT 158 10x3/uL (130-400)
--- NOTE | 2019-07-21 08:46 | NUR ---
INCONT OF URINE. COMPLETE HIBCLENS BATH GIVEN WITH LINEN CHANGE. UMANG WASHINGTON HERE STATES TO PUT HENDRIX CATH IN DUE TO LASIX, AND NEED TO HAVE ACCURATE I AND O. 18 UZBEK HENDRIX CATH INSERTED WITHOUT DIFFICULTY WITH IMMEDIATE RETURN OF CLEAR YELLOW URINE. PATIENT TOLERATED POOR
--- NOTE | 2019-07-21 09:21 | NUR ---
DR. BARBOSA HERE UPDATE GIVEN
--- NOTE | 2019-07-21 11:00 | NUR ---
NAPPING COMFORTABLY, NO DISTREEE
--- NOTE | 2019-07-21 12:44 | NUR ---
RENAL DIET SERVED AND SET UP FOR LUNCH
--- NOTE | 2019-07-21 13:52 | NUR ---
ATE FAIR AT LUNCH REPOSITIONED. NO DISTRESS. NAPPING MOST OF DAY
--- NOTE | 2019-07-21 15:00 | NUR ---
REPOSITIONED ON SIDE WITH PILLOWS. HEELS BRIDGED ON PILLOW
--- NOTE | 2019-07-21 17:00 | NUR ---
REPOSITIONED. PULLED UP IN BED. REFUSED TO EAT SUPER. HEELS BRIDGED ON PILLOW
--- NOTE | 2019-07-21 18:00 | NUR ---
ON BED ARSHAD SMALL SEMI LIQUID BROWN STOOL. CAN ASSIST WITH TURNING SELF SOME. NO SKIN BREAKDOWN NOTED. HENDRIX CATH PATENT DRAINING CLEAR YELLOW URINE.
--- NOTE | 2019-07-21 19:00 | NUR ---
INTRODUCED SELF TO PATIENT. PLAN DISCUSSED. PATIENT DENIES FURTHER NEEDS OR CONCERNS AT THIS TIME. IVs INFUSING WITHOUT SIGNS OF INFILTRATION. HENDRIX BAG SECURED BELOW BLADDER, NO LOOPS IN TUBE NOTED. DARK SUPRIYA URINE NOTED IN COLLECTED BAD. CALL LIGHT WITHIN REACH OF PATIENT. BED/LOWERED LOCKED AND RAILS UP TO PROTECT PATIENT FROM FALL. WILL CONTINUE TO MONITOR.
--- NOTE | 2019-07-21 22:05 | NUR ---
PATIENT RESTING QUIETLY AT THIS TIME, VSS. IVs INFUSING WITHOUT SIGNS OF INFILTRATION. HENDRIX DRAINING PROPERLY, NO LOOPS IN TUBING. BED LOWERED/LOCKED AND CALL LIGHT IS WITHIN REACH. WILL CONTINUE TO MONITOR.
--- NOTE | 2019-07-21 23:15 | NUR ---
PT REQUESTED MOIST Q TIPS FOR NARES, STATED THEY FELT "DRY". LUBRICANT AND COTTON TIP APPLICATORS GIVEN TO PATIENT TO COAT NARES. RT AT BEDSIDE TO CHANGE O2 TUBING AND ADD MORE HUMIDITY. PATIENT TOLERATED WELL. PATIENT POSITIONED, DENIES FURTHER NEEDS OR CONCERNS AT THIS TIME. IV INFUSING WITHOUT SIGNS OF INFILTRATION. BED LOWERED/LOCKED. CALL LIGHT WITHIN REACH. HENDRIX BELOW BLADDER, TUBING FREE OF LOOPS. WILL CONTINUE TO MONITOR.
[2019-07-22] VITALS (8 sets, daily range): BP systolic 82–109; BP diastolic 58–65
--- NOTE | 2019-07-22 02:10 | NUR ---
CHG BATH GIVEN. GOWN CHANGE, COMPLETE LINEN CHANGE, AND HENDRIX CARE GIVEN. PATIENT TOLERATED WELL. PATIENT POSITIONED ON LT SIDE AND HEELS PROPPED WITH PILLOW. HOB ELEVATED 30 DEGREES. IV INFUSING WITHOUT SIGNS OF INFILTRATION. VSS. BED LOWERED/LOCKED. RAILS UP X2. CALL LIGHT WITHIN REACH. PATIENT DENIES FURTHER NEEDS OR CONCERNS AT THIS TIME. WILL CONTINUE TO MONITOR.
[2019-07-22 05:04] LABS: BASOPHILS 0.2 % (0-2); HEMATOCRIT 26.5 % (42.0-54.0); HEMOGLOBIN 8.9 g/dL (13.5-17.5); IMMATURE GRANULOCYTES 0.7 % (0-5); LYMPHOCYTES 4.1 % (15-50); MCH 23.9 pg (26.0-34.0); MCHC 33.6 g/dL (31.0-37.0); MONOCYTES 6.1 % (2-11); NEUTROPHILS 87.9 % (40-80); PLATELET COUNT 161 10x3/uL (130-400); RBC 3.73 10x6/uL (4.20-6.10); RDW 19.1 % (11.5-14.5); WBC 9.8 10x3/uL (4.8-10.8)
[2019-07-22 05:16] LABS: ALBUMIN 1.7 g/dL (3.4-5.0); ANION GAP 9.8 mmol/L (8-16); BILIRUBIN - TOTAL 2.39 mg/dL (0.2-1.3); CALCIUM 7.8 mg/dL (8.5-10.1); CARBON DIOXIDE 30.5 mmol/L (21.0-32.0); CREATININE - SERUM 1.4 mg/dL (0.6-1.3); POTASSIUM - SERUM 3.3 mmol/L (3.5-5.1); PROTEIN - SERUM 5.9 g/dL (6.4-8.2)
--- NOTE | 2019-07-22 05:45 | NUR ---
PATIENT C/O URINE LEAKING OUT AROUND CATHETER, OBSERVED GOWN AND PAD WET, HENDRIX APPEARS TO BE DRAINING PROPERLY. BALLOON INFLATED, TUBING FREE OF LOOPS. PARTIAL LINEN CHANGE, GOWN CHANGE. PERINEAL AREA CLEANSED. PATIENT TOLERATED WELL. PATIENT REPOSITIONED ON BACK. BED LOWERED/LOCKED AND RAILS UP TO PROTECT PATIENT FROM FALL. CALL LIGHT WITHIN REACH. IV INFUSING WITHOUT SIGNS OF INFILTRATION. DENIES FURTHER NEEDS OR CONCERNS AT THIS TIME. VSS. WILL CONTINUE TO MONITOR.
--- NOTE | 2019-07-22 07:15 | NUR ---
REPORT RECEIVED. ASSESSMENT COMPLETE PER FLOW SHEET. VSS. PT GIVEN BREAKFAST TRAY BIPAP REMOVED AT THIS TIME RESP GIVEN UPDATE WILL CONTINUE TO MONITOR
--- NOTE | 2019-07-22 09:30 | NUR ---
DR ESCOBEDO AT BEDSIDE GIVEN UDPATE
--- NOTE | 2019-07-22 10:02 | NUR ---
Nutrition follow-up: Diet: Renal PO intake ~25-50% of meals Pt on BIPAP Labs reviewed Wt: 209# +BM RDN following.
--- NOTE | 2019-07-22 11:15 | NUR ---
REASSESSMENT COMPLETE PER FLOW SHEET. VSS. NO NEW CHANGES WILL CONTINUE TO MONITOR
--- NOTE | 2019-07-22 16:13 | NUR ---
ARRIVE TO UNIT VIA BED FROM ICU. ALERT AND ORIENTED X4. ASSIST TRANSFERRING FROM BED TO BED. DENIES ANY NEEDS AT THIS TIME. CONTINUE PLAN OF CARE AND SAFETY PRECAUTIONS. DENIES SOB OR PAIN. RESPIRATIONS EVEN AND REGULAR.
--- NOTE | 2019-07-22 17:03 | MORECARE ---
CASE MANAGEMENT DISCHARGE SUMMARY PATIENT: VANESA HURTADO UNIT: [id number] ADM DATE: 07/13/19 AGE: 69 : 50 SEX: M ROOM/BED: D.2112 AUTHOR: JEFFREY,DOC PHYSICIAN: REFERRING PHYSICIAN: MILLIE HALL MD DATE OF SERVICE: 07/22/19 Discharge Plan Patient Name: VANESA HURTADO Facility: [facility]:[place] : 1950 Planned Disposition: Home Anticipated Discharge Date: Discharge Date: Expected LOS: Initial Reviewer: [email or web address] Initial Review Date: 07/16/2019 Generated: 07/22/19 6:03 pm Comments DCP- Discharge Planning Updated by [email or web address]: Sangita Iglesias on 07/22/19 4:[address] CM SPOKE WITH PATIENT'S AMY IN REGARDS TO D/C PLANNING. CM STATED THAT PT RECOMMENDED PATIENT GO TO REHAB OR SNF UPON DISCHARGE FOR STRENGTHENING. DEMETRIUS SIGNED FOR [facility] IN [place] [phone]. FAX [phone]. CM WILL FAX INITIAL CLINICAL FOR REFERRAL DCP- Discharge Planning Updated by [email or web address]: Sangita Iglesias on 07/19/19 3:[address] Per PT recommendations patient will need Rehab or SNF before returning home. CM attempted to speak to patient he kept dozing off and wouldn't answer questions regarding placement for strengthening. CM attempted to call spouse at [phone] no answer @ this time voicemail didn't list Amy as the contact. CM will try to get DEMETRIUS at later time. CM will continue to follow and assist as needed with discharge planning / needs. DCP- Discharge Planning Updated by [email or web address]: Sangita Iglesias on 07/16/19 5:[address] Patient Name: VANESA HURTADO Admission Status: Elective Accout number: [id number] Admission Date: 07-13-2019 : 1950 Admission Diagnosis:ACUTE KIDNEY FAILURE, UNSPECIFIED Attending: MILLIE HALL Current LOS: 3 Anticipated DC Date: Planned Disposition: Home Primary Insurance: MEDICARE A & B Discharge Planning Comments: CM met with patient at bedside after explaining CM role and obtaining verbal consent. Patient lives at home with his Amy where he is independent with his care and plans to return there upon discharge. Patient feels this would be a safe discharge. CM discussed availability / needs of home health and medical equipment. Patient denies any discharge needs at this time. Patient states he will have his family drive him home upon discharge. CM will continue to follow and assist as needed with discharge planning / needs. Window Sash Installer: Sangita JACKSONA - Discharge Planning Initial Assessment Updated by [email or web address]: Sangita Iglesias on 07/16/19 6:54 pm * Is the patient Alert and Oriented? Yes * How many steps to enter\exit or inside your home? * PCP OMKAR JEFFERS * Pharmacy [facility] * Preadmission Environment Home with Family * ADLs Independent * Equipment Walker * List name and contact numbers for known caregivers / representatives who currently or will assist patient after discharge: AMY HURTADO - SPOUSE- [phone] * Verbal permission to speak to the caregivers and representatives has been obtained from the patient. Yes * Community resources currently utilized None * Additional services required to return to the preadmission environment? No * Can the patient safely return to the preadmission environment? Yes * Has this patient been hospitalized within the prior 30 days at any hospital? No External Providers External Provider: [facility] Next Contact Date: Service Request Date: Service Type: Resolution: Reviewer: Comments: Last DP export: 07/19/19 3:53 p Patient Name: VANESA HURTADO Page 15236 at 1703 All edits/amendments must be made on the electronic document DICTATION DATE: 07/22/19 170 CREDIT CONTROL CLERK: CARLYLE 07/22/19 170 RPT#: [id number] DC DATE: STATUS: ADM IN [facility] [address] [place] [address] END OF REPORT
--- NOTE | 2019-07-22 17:28 | MORECARE ---
CASE MANAGEMENT DISCHARGE SUMMARY PATIENT: VANESA HURTADO UNIT: [id number] ADM DATE: 07/13/19 AGE: 69 : 50 SEX: M ROOM/BED: D.2112 AUTHOR: JEFFREY,DOC PHYSICIAN: REFERRING PHYSICIAN: MILLIE HALL MD DATE OF SERVICE: 07/22/19 Discharge Plan Patient Name: VANESA HURTADO Facility: [facility]:[place] : 1950 Planned Disposition: Home Anticipated Discharge Date: Discharge Date: Expected LOS: Initial Reviewer: [email or web address] Initial Review Date: 07/16/2019 Generated: 07/22/19 6:27 pm Comments DCP- Discharge Planning Updated by [email or web address]: Sangita Iglesias on 07/22/19 4:[address] CM SPOKE WITH PATIENT'S AMY IN REGARDS TO D/C PLANNING. CM STATED THAT PT RECOMMENDED PATIENT GO TO REHAB OR SNF UPON DISCHARGE FOR STRENGTHENING. DEMETRIUS SIGNED FOR [facility] IN [place] [phone]. FAX [phone]. CM WILL FAX INITIAL CLINICAL FOR REFERRAL Appended by Sangita Iglesias on 07/22/2019 17:21 CDT: CM also updated contact number Amy Hurtado [phone]. Amy also stated that patient has just received Home from [facility] in [place] just prior to admission. DCP- Discharge Planning Updated by [email or web address]: Sangita Iglesias on 07/19/19 3:[address] Per PT recommendations patient will need Rehab or SNF before returning home. CM attempted to speak to patient he kept dozing off and wouldn't answer questions regarding placement for strengthening. CM attempted to call spouse at [phone] no answer @ this time voicemail didn't list Amy as the contact. CM will try to get DEMETRIUS at later time. CM will continue to follow and assist as needed with discharge planning / needs. DCP- Discharge Planning Updated by [email or web address]: Sangita Iglesias on 07/16/19 5:[address] Patient Name: VANESA HURTADO Admission Status: Elective Accout number: [id number] Admission Date: 07-13-2019 : 1950 Admission Diagnosis:ACUTE KIDNEY FAILURE, UNSPECIFIED Attending: MILLIE HALL Current LOS: 3 Anticipated DC Date: Planned Disposition: Home Primary Insurance: MEDICARE A & B Discharge Planning Comments: CM met with patient at bedside after explaining CM role and obtaining verbal consent. Patient lives at home with his Amy where he is independent with his care and plans to return there upon discharge. Patient feels this would be a safe discharge. CM discussed availability / needs of home health and medical equipment. Patient denies any discharge needs at this time. Patient states he will have his family drive him home upon discharge. CM will continue to follow and assist as needed with discharge planning / needs. Director Of Pulmonary Unit: Sangita MARADIAGA - Discharge Planning Initial Assessment Updated by [email or web address]: Sangita Iglesias on 07/16/19 6:54 pm * Is the patient Alert and Oriented? Yes * How many steps to enter\exit or inside your home? * PCP OMKAR JEFFERS * [facility] * Preadmission Environment Home with Family * ADLs Independent * Equipment Walker * List name and contact numbers for known caregivers / representatives who currently or will assist patient after discharge: AMY HURTADO - SPOUSE- [phone] * Verbal permission to speak to the caregivers and representatives has been obtained from the patient. Yes * Community resources currently utilized None * Additional services required to return to the preadmission environment? No * Can the patient safely return to the preadmission environment? Yes * Has this patient been hospitalized within the prior 30 days at any hospital? No Last DP export: 07/22/19 4:03 p Patient Name: VANESA HURTADO Page 91331 at 1728 All edits/amendments must be made on the electronic document DICTATION DATE: 07/22/191726 SHIRT TRIMMER: CARLYLE 07/22/191726 RPT#: [id number] DC DATE: STATUS: ADM IN [facility] [address] [place] [address] END OF REPORT
[2019-07-22 18:08] LABS: FACTOR II DNA ANALYSIS Negative (())
--- NOTE | 2019-07-22 19:52 | NUR ---
RECIEVED UP IN BED WITH SPOUSE AT BEDSIDE. ALERT AND ORIENTED X4. IV TO RIGHT FA SL AND IV TO LEFT HAND SL.. TRIALYSIS TO RIGHT IJ SL.. PITTING EDEMA TO RIGHT FOOT LEG. STATED HE HAD A BLOOD CLOT IN THAT LEG. NO REDNESS OR HEAT TO THAT EXTREMITY. PACEMAKER TO LEFT CHEST. O2 @ 2 LITERS PER N/C. DENIES ANY NEEDS AT THIS TIME.
[2019-07-23] VITALS: BP 98/66
[2019-07-23 04:00] VITALS: BP 104/71
[2019-07-23 06:40] LABS: BASOPHILS 0.2 % (0-2); EOSINOPHILS 1.3 % (0-7); HEMATOCRIT 26.6 % (42.0-54.0); HEMOGLOBIN 8.8 g/dL (13.5-17.5); IMMATURE GRANULOCYTES 1.3 % (0-5); LYMPHOCYTES 5.6 % (15-50); MCH 23.7 pg (26.0-34.0); MCHC 33.1 g/dL (31.0-37.0); MCV 71.5 fL (80.0-100.0); MEAN PLATELET VOLUME 9.6 fL (7.4-10.4); MONOCYTES 5.9 % (2-11); NEUTROPHILS 85.7 % (40-80); PLATELET COUNT 189 10x3/uL (130-400); RBC 3.72 10x6/uL (4.20-6.10); RDW 19.3 % (11.5-14.5); WBC 10.9 10x3/uL (4.8-10.8)
[2019-07-23 06:55] LABS: ALBUMIN 1.8 g/dL (3.4-5.0); BILIRUBIN - TOTAL 2.08 mg/dL (0.2-1.3); CALCIUM 7.8 mg/dL (8.5-10.1); CARBON DIOXIDE 30.4 mmol/L (21.0-32.0); CREATININE - SERUM 1.4 mg/dL (0.6-1.3); PHOSPHOROUS 2.2 mg/dL (2.5-4.9); POTASSIUM - SERUM 3.4 mmol/L (3.5-5.1)
[2019-07-23 08:31] VITALS: BP 101/71
[2019-07-23 08:54] LABS: INR 1.65 (0.85-1.17); PROTIME 18.9 SECONDS (11.6-15.0)
--- NOTE | 2019-07-23 11:00 | NUR ---
ALERT AND ORIENTED X4. SPOUSE AT BEDSIDE. PHYSICAL THERAPY ASSIST OOB TO CHAIR. REPORTS DIZZINESS. VITALS STABLE NO BLOOD PRESSURE CHANGES. CHECK SUGAR. FSBS 117. CONTINUE TO MONITOR. CONTINUE PLAN OF CARE AND SAFETY PRECAUTIONS.
[2019-07-23 11:49] VITALS: BP 101/67
--- NOTE | 2019-07-23 15:30 | NUR ---
ALERT AND ORIENTED X4. ASSIST BACK TO BED FROM CHAIR. DENIES DIZZINESS. VITALS REMAIN STABLE. DENIES ANY NEEDS. CONTINUE PLAN OF CARE AND SAFETY PRECAUTIONS.
[2019-07-23 15:32] VITALS: BP 100/74
--- NOTE | 2019-07-23 16:06 | MORECARE ---
CASE MANAGEMENT DISCHARGE SUMMARY PATIENT: VANESA HURTADO UNIT: [id number] ADM DATE: 07/13/19 AGE: 69 : 50 SEX: M ROOM/BED: D.2112 AUTHOR: JEFFREY,DOC PHYSICIAN: REFERRING PHYSICIAN: MILLIE HALL MD DATE OF SERVICE: 07/23/19 Discharge Plan Patient Name: VANESA HURTADO Facility: [facility]:[place] : 1950 Planned Disposition: Home Anticipated Discharge Date: Discharge Date: Expected LOS: Initial Reviewer: [email or web address] Initial Review Date: 07/16/2019 Generated: 07/23/19 5:06 pm Comments DCP- Discharge Planning Updated by [email or web address]: Sangita Iglesias on 07/22/19 4:[address] CM SPOKE WITH PATIENT'S AMY IN REGARDS TO D/C PLANNING. CM STATED THAT PT RECOMMENDED PATIENT GO TO REHAB OR SNF UPON DISCHARGE FOR STRENGTHENING. DEMETRIUS SIGNED FOR [facility] IN [place] [phone]. FAX [phone]. CM WILL FAX INITIAL CLINICAL FOR REFERRAL Appended by Sangita Iglesias on 07/22/2019 17:21 CDT: CM also updated contact number Amy Hurtado [phone]. Amy also stated that patient has just received Home from [facility] in [place] just prior to admission. DCP- Discharge Planning Updated by [email or web address]: Sangita Iglesias on 07/19/19 3:[address] Per PT recommendations patient will need Rehab or SNF before returning home. CM attempted to speak to patient he kept dozing off and wouldn't answer questions regarding placement for strengthening. CM attempted to call spouse at [phone] no answer @ this time voicemail didn't list Amy as the contact. CM will try to get DEMETRIUS at later time. CM will continue to follow and assist as needed with discharge planning / needs. DCP- Discharge Planning Updated by [id number]: Sangita Iglesias on 07/16/19 5:[address] Patient Name: VANESA HURTADO Admission Status: Elective Accout number: [id number] Admission Date: 07-13-2019 : 1950 Admission Diagnosis:ACUTE KIDNEY FAILURE, UNSPECIFIED Attending: MILLIE HALL Current LOS: 3 Anticipated DC Date: Planned Disposition: Home Primary Insurance: MEDICARE A & B Discharge Planning Comments: CM met with patient at bedside after explaining CM role and obtaining verbal consent. Patient lives at home with his Amy where he is independent with his care and plans to return there upon discharge. Patient feels this would be a safe discharge. CM discussed availability / needs of home health and medical equipment. Patient denies any discharge needs at this time. Patient states he will have his family drive him home upon discharge. CM will continue to follow and assist as needed with discharge planning / needs. Mailroom Personnel: Sangita MARADIAGA - Discharge Planning Initial Assessment Updated by [email or web address]: Sangita Iglesias on 07/16/19 6:54 pm * Is the patient Alert and Oriented? Yes * How many steps to enter\exit or inside your home? * PCP OMKAR JEFFERS * [facility] * Preadmission Environment Home with Family * ADLs Independent * Equipment Walker * List name and contact numbers for known caregivers / representatives who currently or will assist patient after discharge: AMY HURTADO - SPOUSE- [phone] * Verbal permission to speak to the caregivers and representatives has been obtained from the patient. Yes * Community resources currently utilized None * Additional services required to return to the preadmission environment? No * Can the patient safely return to the preadmission environment? Yes * Has this patient been hospitalized within the prior 30 days at any hospital? No External Providers External Provider: [facility] Next Contact Date: 07/23/2019 Service Request Date: Service Type: Resolution: Reviewer: Comments: Last DP export: 07/22/19 4:28 p Patient Name: VANESA HURTADO Page 38330 at 1606 All edits/amendments must be made on the electronic document DICTATION DATE: 07/23/19 1606 REPORTER ANCHOR: CALRYLE 07/23/19 1606 RPT#: [id number] DC DATE: STATUS: ADM IN [facility] [address] [place] [address] END OF REPORT
--- NOTE | 2019-07-23 16:30 | MORECARE ---
CASE MANAGEMENT DISCHARGE SUMMARY PATIENT: VANESA HURTADO UNIT: [id number] ADM DATE: 07/13/19 AGE: 69 : 50 SEX: M ROOM/BED: D.2112 AUTHOR: JEFFREY,DOC PHYSICIAN: REFERRING PHYSICIAN: MILLIE HALL MD DATE OF SERVICE: 07/23/19 Discharge Plan Patient Name: VANESA HURTADO Facility: [facility]:[place] : 1950 Planned Disposition: Fdc Facility Anticipated Discharge Date: Discharge Date: Expected LOS: Initial Reviewer: [id number] Initial Review Date: 07/16/2019 Generated: 07/23/19 5:29 pm Comments DCP- Discharge Planning Updated by [email or web address]: Sangita Iglesias on 07/22/19 4:[address] CM SPOKE WITH PATIENT'S AMY IN REGARDS TO D/C PLANNING. CM STATED THAT PT RECOMMENDED PATIENT GO TO REHAB OR SNF UPON DISCHARGE FOR STRENGTHENING. DEMETRIUS SIGNED FOR [facility] IN [place] [phone]. FAX [phone]. CM WILL FAX INITIAL CLINICAL FOR REFERRAL Appended by Sangita Iglesias on 07/22/2019 17:21 CDT: CM also updated contact number Amy Hurtado [phone]. Amy also stated that patient has just received Home from [facility] in [place] just prior to admission. DCP- Discharge Planning Updated by [email or web address]: Sangita Iglesias on 07/19/19 3:[address] Per PT recommendations patient will need Rehab or SNF before returning home. CM attempted to speak to patient he kept dozing off and wouldn't answer questions regarding placement for strengthening. CM attempted to call spouse at [phone] no answer @ this time voicemail didn't list Amy as the contact. CM will try to get DEMETRIUS at later time. CM will continue to follow and assist as needed with discharge planning / needs. DCP- Discharge Planning Updated by [email or web address]: Sangita Iglesias on 07/16/19 5:[address] Patient Name: VANESA HURTADO Admission Status: Elective Accout number: [id number] Admission Date: 07-13-2019 : 1950 Admission Diagnosis:ACUTE KIDNEY FAILURE, UNSPECIFIED Attending: MILLIE HALL Current LOS: 3 Anticipated DC Date: Planned Disposition: Home Primary Insurance: MEDICARE A & B Discharge Planning Comments: CM met with patient at bedside after explaining CM role and obtaining verbal consent. Patient lives at home with his Amy where he is independent with his care and plans to return there upon discharge. Patient feels this would be a safe discharge. CM discussed availability / needs of home health and medical equipment. Patient denies any discharge needs at this time. Patient states he will have his family drive him home upon discharge. CM will continue to follow and assist as needed with discharge planning / needs. Clinical Specialist Medical Device: Sangita MARADIAGA - Discharge Planning Initial Assessment Updated by [id number]: Sangita Iglesias on 07/16/19 6:54 pm * Is the patient Alert and Oriented? Yes * How many steps to enter\exit or inside your home? * PCP OMKAR JEFFERS * [facility] * Preadmission Environment Home with Family * ADLs Independent * Equipment Walker * List name and contact numbers for known caregivers / representatives who currently or will assist patient after discharge: AMY HURTADO - SPOUSE- [phone] * Verbal permission to speak to the caregivers and representatives has been obtained from the patient. Yes * Community resources currently utilized None * Additional services required to return to the preadmission environment? No * Can the patient safely return to the preadmission environment? Yes * Has this patient been hospitalized within the prior 30 days at any hospital? No Last DP export: 07/23/19 3:06 p Patient Name: VANESA HURTADO Page 73555 at 1630 All edits/amendments must be made on the electronic document DICTATION DATE: 07/23/191628 PROFESSIONAL DRIVER: CARLYLE 07/23/191628 RPT#: [id number] DC DATE: STATUS: ADM IN [facility] [address] [place] [address] END OF REPORT
--- NOTE | 2019-07-23 16:38 | MORECARE ---
CASE MANAGEMENT DISCHARGE SUMMARY PATIENT: VANESA HURTADO UNIT: [id number] ADM DATE: 07/13/19 AGE: 69 : 50 SEX: M ROOM/BED: D.2112 AUTHOR: JEFFREY,DOC PHYSICIAN: REFERRING PHYSICIAN: MILLIE HALL MD DATE OF SERVICE: 07/23/19 Discharge Plan Patient Name: VANESA HURTADO Facility: [facility]:[place] : 1950 Planned Disposition: Fci Facility Anticipated Discharge Date: Discharge Date: Expected LOS: Initial Reviewer: [email or web address] Initial Review Date: 07/16/2019 Generated: 07/23/19 5:38 pm Comments DCP- Discharge Planning Updated by [id number]: Joseph Barajas on 07/23/19 3:[address] Patient Name: VANESA HURTADO Encounter No: [id number] : 1950 Primary Insurance: MEDICARE A & B Anticipated DC Date: Planned Disposition: Fci Facility External Planned Provider: [facility], MEDICARE REHAB BED DCP follow-up note: CM RECEIVED MESSAGE FROM [place] ASKING FOR [facility] INFORMATION. CM SPOKE TO DR. CORRALES AND REVIEWED CHART. CM CALLED [place] AT [phone], SPOKE TO TANVI AND ANSWERED QUESTIONS FOR THEIR ADMISSION TEAM TO CONTINUE CONSIDERATION FOR ADMISSION. CM FAXED UPDATE TO [place] AT [phone]. CM SPOKE TO PT AND SPOUSE IN ROOM REGARDING MEDICARE AND COPAYS AFTER 20 DAYS IN NURSING HOME. PT'S SPOUSE REPORTS PT HAVING BLUE CROSS SUPPLEMENT THAT CM NOTES IS NOT LISTED ON ADMISSION PAPERWORK. CM OBTAINED COPY OF CARD, SENT TO HOSPITAL REGISTRATION [facility] [place]. CM WAITING ADMISSION DETERMINATION FROM [facility] [place] IN [place] FOR REHAB. Joseph Barajas, ZEENAT ORTIZ DCP- Discharge Planning Updated by [email or web address]: Snagita Iglesias on 07/22/19 4:[address] CM SPOKE WITH PATIENT'S AMY IN REGARDS TO D/C PLANNING. CM STATED THAT PT RECOMMENDED PATIENT GO TO REHAB OR SNF UPON DISCHARGE FOR STRENGTHENING. DEMETRIUS SIGNED FOR [facility] IN [place] [phone]. FAX [phone]. CM WILL FAX INITIAL CLINICAL FOR REFERRAL Appended by Sangita Iglesias on 07/22/2019 17:21 CDT: CM also updated contact number Amy Hurtado [phone]. Amy also stated that patient has just received Home from [facility] in [place] just prior to admission. DCP- Discharge Planning Updated by [id number]: Sangita Iglesias on 07/19/19 3:[address] Per PT recommendations patient will need Rehab or SNF before returning home. CM attempted to speak to patient he kept dozing off and wouldn't answer questions regarding placement for strengthening. CM attempted to call spouse at [phone] no answer @ this time voicemail didn't list Amy as the contact. CM will try to get DEMETRIUS at later time. CM will continue to follow and assist as needed with discharge planning / needs. DCP- Discharge Planning Updated by [email or web address]: Sangita Iglesias on 07/16/19 5:[address] Patient Name: VANESA HURTADO Admission Status: Elective Accout number: [id number] Admission Date: 07-13-2019 : 1950 Admission Diagnosis:ACUTE KIDNEY FAILURE, UNSPECIFIED Attending: MILLIE HALL Current LOS: 3 Anticipated DC Date: Planned Disposition: Home Primary Insurance: MEDICARE A & B Discharge Planning Comments: CM met with patient at bedside after explaining CM role and obtaining verbal consent. Patient lives at home with his Amy where he is independent with his care and plans to return there upon discharge. Patient feels this would be a safe discharge. CM discussed availability / needs of home health and medical equipment. Patient denies any discharge needs at this time. Patient states he will have his family drive him home upon discharge. CM will continue to follow and assist as needed with discharge planning / needs. Production Support Specialist: Sangita Iglesias DCPIA - Discharge Planning Initial Assessment Updated by [id number]: Sangita Iglesias on 07/16/19 6:54 pm * Is the patient Alert and Oriented? Yes * How many steps to enter\exit or inside your home? * PCP OMKAR JEFFERS * Pharm[facility] * Preadmission Environment Home with Family * ADLs Independent * Equipment Walker * List name and contact numbers for known caregivers / representatives who currently or will assist patient after discharge: AMY HURTADO - SPOUSE- [phone] * Verbal permission to speak to the caregivers and representatives has been obtained from the patient. Yes * Community resources currently utilized None * Additional services required to return to the preadmission environment? No * Can the patient safely return to the preadmission environment? Yes * Has this patient been hospitalized within the prior 30 days at any hospital? No Last DP export: 07/23/19 3:30 p Patient Name: VANESA HURTADO Page 34682 at 1638 All edits/amendments must be made on the electronic document DICTATION DATE: 07/23/191637 BONDING MACHINE SETTER: CARLYLE 07/23/198 RPT#: [id number] DC DATE: STATUS: ADM IN [facility] [address] [place] [address] END OF REPORT
--- NOTE | 2019-07-23 16:51 | NUR ---
OT NOTE: PT COMPLETED BED MOB TASKS WITH MIN A. PT COMPLETED EOB SITTING BALANCE WITH SBA/CGA. PT COMPLETED FACE WASH WITH SET UP. PT COMPLETED HYGINE TASK WITH MIN A. THANK YOU, LAURO KUHN
--- NOTE | 2019-07-23 19:45 | NUR ---
PT RESTING IN BED ALERT AND ORIENTED X4. AT BEDSIDE. NO S/S OF DISTRESS PT DENIES ANY PAIN OR FURTHER NEEDS AT THIS TIME. BED LOW CALL LIGHT WITHIN REACH. WILL CONTINUE TO MONITOR.
[2019-07-23 20:00] VITALS: BP 95/65
[2019-07-24] VITALS: BP 104/68
[2019-07-24 03:13] LABS: BASOPHILS 0.2 % (0-2); EOSINOPHILS 1.5 % (0-7); HEMATOCRIT 26.3 % (42.0-54.0); HEMOGLOBIN 8.8 g/dL (13.5-17.5); IMMATURE GRANULOCYTES 1.2 % (0-5); LYMPHOCYTES 5.3 % (15-50); MCH 24.1 pg (26.0-34.0); MCHC 33.5 g/dL (31.0-37.0); MCV 72.1 fL (80.0-100.0); MEAN PLATELET VOLUME 10.4 fL (7.4-10.4); MONOCYTES 4.5 % (2-11); NEUTROPHILS 87.3 % (40-80); PLATELET COUNT 217 10x3/uL (130-400); RBC 3.65 10x6/uL (4.20-6.10); RDW 19.3 % (11.5-14.5); WBC 11.4 10x3/uL (4.8-10.8)
[2019-07-24 03:19] LABS: ALBUMIN 1.8 g/dL (3.4-5.0); ANION GAP 8.9 mmol/L (8-16); BILIRUBIN - TOTAL 1.7 mg/dL (0.2-1.3); CALCIUM 7.7 mg/dL (8.5-10.1); CARBON DIOXIDE 31.4 mmol/L (21.0-32.0); CREATININE - SERUM 1.4 mg/dL (0.6-1.3); POTASSIUM - SERUM 3.3 mmol/L (3.5-5.1); PROTEIN - SERUM 6.2 g/dL (6.4-8.2)
[2019-07-24 04:00] VITALS: BP 103/68
--- NOTE | 2019-07-24 05:21 | NUR ---
PT RESTING IN BED WITH EYES CLOSED RR EVEN AND UNLABORED. AT BEDSIDE. CALL LIGHT WITHIN REACH. VITALS STABLE. WILL CONTINUE TO MONITOR.
--- NOTE | 2019-07-24 05:38 | NUR ---
I have reviewed this patient and I concur with the Shift Assessment completed by the Licensed Practical Nurse today this shift.
--- NOTE | 2019-07-24 07:14 | NUR ---
ROUNDING DONE WITH PATIENT AROUSING EASILY. "[place]" IS AT BEDSIDE AND DENIES NEEDS EXCEPT TOWELS AND WASHCLOTHS, GIVEN. ON 2L PER NC. RIGHT IJ TRIALYSIS SEEN SALINE LOCK. LEFT HAND PIV SEEN WITH SALINE LOCK. RIGHT LOWER LEG IS SWOLLEN AND SHINY. LEFT LEG NORMAL. K+ IS 3.3, NOT ON EP. WILL CPOC.
[2019-07-24 09:07] VITALS: BP 105/72
--- NOTE | 2019-07-24 10:08 | NUR ---
COMPLETE BED AND BATH DONE PER THIS NURSE. UP WITH THERAPY.
--- NOTE | 2019-07-24 10:25 | NUR ---
UP IN CHAIR PER THERAPY
--- NOTE | 2019-07-24 11:11 | NUR ---
STILL UP IN CHAIR FROM THERAPY PLACING HIM THERE. DENIES NEEDS.
--- NOTE | 2019-07-24 12:06 | MORECARE ---
CASE MANAGEMENT DISCHARGE SUMMARY PATIENT: VANESA HURTADO UNIT: [id number] ADM DATE: 07/13/19 AGE: 69 : 50 SEX: M ROOM/BED: D.2112 AUTHOR: JEFFREY,DOC PHYSICIAN: REFERRING PHYSICIAN: MILLIE HALL MD DATE OF SERVICE: 07/24/19 Discharge Plan Patient Name: VANESA HURTADO Facility: [facility]:[place] : 1950 Planned Disposition: Fpc Facility Anticipated Discharge Date: 07/24/19 Discharge Date: Expected LOS: 11 Initial Reviewer: [email or web address] Initial Review Date: 07/16/2019 Generated: 07/24/19 1:05 pm Comments DCP- Discharge Planning Updated by [email or web address]: Joseph Barajas on 07/23/19 3:[address] Patient Name: VANESA HURTADO Encounter No: [id number] : 1950 Primary Insurance: MEDICARE A & B Anticipated DC Date: Planned Disposition: Fpc Facility External Planned Provider: [facility], MEDICARE REHAB BED DCP follow-up note: CM RECEIVED MESSAGE FROM [place] ASKING FOR [facility] INFORMATION. CM SPOKE TO DR. CORRALES AND REVIEWED CHART. CM CALLED [place] AT [phone], SPOKE TO TANVI AND ANSWERED QUESTIONS FOR THEIR ADMISSION TEAM TO CONTINUE CONSIDERATION FOR ADMISSION. CM FAXED UPDATE TO [place] AT [phone]. CM SPOKE TO PT AND SPOUSE IN ROOM REGARDING MEDICARE AND COPAYS AFTER 20 DAYS IN CUSTODIAL. PT'S SPOUSE REPORTS PT HAVING BLUE CROSS SUPPLEMENT THAT CM NOTES IS NOT LISTED ON ADMISSION PAPERWORK. CM OBTAINED COPY OF CARD, SENT TO HOSPITAL REGISTRATION [facility] [place]. CM WAITING ADMISSION DETERMINATION FROM [facility] IN [place] FOR REHAB. Joseph Barajas, ZEENAT ORTIZ DCP- Discharge Planning Updated by [id number]: Sangita Iglesias on 07/22/19 4:[address] CM SPOKE WITH PATIENT'S AMY IN REGARDS TO D/C PLANNING. CM STATED THAT PT RECOMMENDED PATIENT GO TO REHAB OR SNF UPON DISCHARGE FOR STRENGTHENING. DEMETRIUS SIGNED FOR [facility] IN [place] [phone]. FAX [phone]. CM WILL FAX INITIAL CLINICAL FOR REFERRAL Appended by Sangita Iglesias on 07/22/2019 17:21 CDT: CM also updated contact number Amy Hurtado [phone]. Amy also stated that patient has just received Home from [facility] in [place] just prior to admission. DCP- Discharge Planning Updated by [id number]: Sangita Iglesias on 07/19/19 3:[address] Per PT recommendations patient will need Rehab or SNF before returning home. CM attempted to speak to patient he kept dozing off and wouldn't answer questions regarding placement for strengthening. CM attempted to call spouse at [phone] no answer @ this time voicemail didn't list Amy as the contact. CM will try to get DEMETRIUS at later time. CM will continue to follow and assist as needed with discharge planning / needs. DCP- Discharge Planning Updated by [email or web address]: Sangita Iglesias on 07/16/19 5:[address] Patient Name: VANESA HURTADO Admission Status: Elective Accout number: [id number] Admission Date: 07-13-2019 : 1950 Admission Diagnosis:ACUTE KIDNEY FAILURE, UNSPECIFIED Attending: MILLIE HALL Current LOS: 3 Anticipated DC Date: Planned Disposition: Home Primary Insurance: MEDICARE A & B Discharge Planning Comments: CM met with patient at bedside after explaining CM role and obtaining verbal consent. Patient lives at home with his Amy where he is independent with his care and plans to return there upon discharge. Patient feels this would be a safe discharge. CM discussed availability / needs of home health and medical equipment. Patient denies any discharge needs at this time. Patient states he will have his family drive him home upon discharge. CM will continue to follow and assist as needed with discharge planning / needs. Buffet Server: Sangita Iglesias DCPIA - Discharge Planning Initial Assessment Updated by [email or web address]: Sangita Iglesias on 07/16/19 6:54 pm * Is the patient Alert and Oriented? Yes * How many steps to enter\exit or inside your home? * PCP OMKAR JEFFERS * [facility] * Preadmission Environment Home with Family * ADLs Independent * Equipment Walker * List name and contact numbers for known caregivers / representatives who currently or will assist patient after discharge: AMY HURTADO - SPOUSE- [phone] * Verbal permission to speak to the caregivers and representatives has been obtained from the patient. Yes * Community resources currently utilized None * Additional services required to return to the preadmission environment? No * Can the patient safely return to the preadmission environment? Yes * Has this patient been hospitalized within the prior 30 days at any hospital? No Last DP export: 07/23/19 3:38 p Patient Name: VANESA HURTADO Page 36199 at 1206 All edits/amendments must be made on the electronic document DICTATION DATE: 07/24/191204 SENIOR OPERATIONS MANAGER: CARLYLE 07/24/195 RPT#: [id number] DC DATE: STATUS: ADM IN [facility] [address] [place] [address] END OF REPORT
--- NOTE | 2019-07-24 12:29 | NUR ---
Nutrition Follow-up: Pt reports improvement in appetite. Diet: Renal Wt: 209# Last BM: 07/23 Labs noted: BUN 27, Cre 1.4, GFR 65, K+ 3.3, PO4 2.2, Ca 7.7 Meds noted: Lasix, Coumadin, KDur (PRN) Rec change diet to cardiac; K+/PO4 wnl. [place] food preferences within diet restrictions. Provided/discussed "Vitamin K and Medications". RD following.
[2019-07-24 13:02] VITALS: BP 99/66
--- NOTE | 2019-07-24 13:06 | MORECARE ---
CASE MANAGEMENT DISCHARGE SUMMARY PATIENT: VANESA HURTADO UNIT: [id number] ADM DATE: 07/13/19 AGE: 69 : 50 SEX: M ROOM/BED: D.[facility] AUTHOR: JEFFREY,DOC PHYSICIAN: REFERRING PHYSICIAN: MILLIE HALL MD DATE OF SERVICE: 07/24/19 Discharge Plan Patient Name: VANESA HURTADO Facility: [facility]:[place] : 1950 Planned Disposition: Shelter Facility Anticipated Discharge Date: 07/24/19 Discharge Date: Expected LOS: 11 Initial Reviewer: [id number] Initial Review Date: 07/16/2019 Generated: 07/24/19 2:06 pm Comments DCP- Discharge Planning Updated by [id number]: Joseph Barajas on 07/24/19 12:[address] Patient Name: VANESA HURTADO Encounter No: [id number] : 1950 Primary Insurance: MEDICARE A & B Anticipated DC Date: 07-24-2019 Planned Disposition: Shelter Facility External Planned Provider: [facility], MEDICARE REHAB BED DCP follow-up note: CM SPOKE TO DR. HALL AND TREATMENT TEAM IN MULTIDISCIPLINARY TEAM MEETING, INDICATES PT CAN DISCHARGE TO REHAB WHEN ACCEPTED. CM NOTIFIED [facility] OF [place], . CM FAXED UPDATE TO [place] VIA SHARON AT [phone]. CM WAITING ADMISSION DETERMINATION FROM THE [facility] IN [place] FOR REHAB. Joseph Barajas, ZEENAT ORTIZ DCP- Discharge Planning Updated by [id number]: Joseph Barajas on 07/23/19 3:[address] Patient Name: VANESA HURTADO Encounter No: [id number] : 1950 Primary Insurance: MEDICARE A & B Anticipated DC Date: Planned Disposition: Shelter Facility External Planned Provider: [facility], MEDICARE REHAB BED DCP follow-up note: CM RECEIVED MESSAGE FROM [facility] ASKING FOR [facility]. CM SPOKE TO DR. CORRALES AND REVIEWED CHART. CM CALLED [facility] AT [phone], SPOKE TO TANVI AND ANSWERED QUESTIONS FOR THEIR ADMISSION TEAM TO CONTINUE CONSIDERATION FOR ADMISSION. CM FAXED UPDATE TO [place] AT [phone]. CM SPOKE TO PT AND SPOUSE IN ROOM REGARDING MEDICARE AND COPAYS AFTER 20 DAYS IN [facility]. PT'S SPOUSE REPORTS PT HAVING BLUE CROSS SUPPLEMENT THAT CM NOTES IS NOT LISTED ON ADMISSION PAPERWORK. CM OBTAINED COPY OF CARD, SENT TO [facility]PITAL REGIST[facility] [place]. CM WAITING ADMISSION DETERMINATION FROM THE [facility] [place] IN [place] FOR REHAB. Joseph Barajas, CASE MANAGEMENT DCP- Discharge Planning Updated by [id number]: Sangita Iglesias on 07/22/19 4:[address] CM SPOKE WITH PATIENT'S AMY IN REGARDS TO D/C PLANNING. CM STATED THAT PT RECOMMENDED PATIENT GO TO REHAB OR SNF UPON DISCHARGE FOR STRENGTHENING. DEMETRIUS SIGNED FOR [facility] IN [place] [phone]. FAX [phone]. CM WILL FAX INITIAL CLINICAL FOR REFERRAL Appended by Sangita Iglesias on 07/22/2019 17:21 CDT: CM also updated contact number Amy Hurtado [phone]. Amy also stated that patient has just received Home from [facility] in [place] just prior to admission. DCP- Discharge Planning Updated by [email or web address]: Sangita Iglesias on 07/19/19 3:[address] Per PT recommendations patient will need Rehab or SNF before returning home. CM attempted to speak to patient he kept dozing off and wouldn't answer questions regarding placement for strengthening. CM attempted to call spouse at [phone] no answer @ this time voicemail didn't list Amy as the contact. CM will try to get DEMETRIUS at later time. CM will continue to follow and assist as needed with discharge planning / needs. DCP- Discharge Planning Updated by [email or web address]: Sangita Iglesias on 07/16/19 5:[address] Patient Name: VANESA HURTADO Admission Status: Elective Accout number: [id number] Admission Date: 07-13-2019 : 1950 Admission Diagnosis:ACUTE KIDNEY FAILURE, UNSPECIFIED Attending: MILLIE HALL Current LOS: 3 Anticipated DC Date: Planned Disposition: Home Primary Insurance: MEDICARE A & B Discharge Planning Comments: CM met with patient at bedside after explaining CM role and obtaining verbal consent. Patient lives at home with his Amy where he is independent with his care and plans to return there upon discharge. Patient feels this would be a safe discharge. CM discussed availability / needs of home health and medical equipment. Patient denies any discharge needs at this time. Patient states he will have his family drive him home upon discharge. CM will continue to follow and assist as needed with discharge planning / needs. Sales Support Technician: Sangita MARADIAGA - Discharge Planning Initial Assessment Updated by [id number]: Sangita Iglesias on 07/16/19 6:54 pm * Is the patient Alert and Oriented? Yes * How many steps to enter\exit or inside your home? * PCP OMKAR JEFFERS * [facility] * Preadmission Environment Home with Family * ADLs Independent * Equipment Walker * List name and contact numbers for known caregivers / representatives who currently or will assist patient after discharge: AMY HURTADO - SPOUSE- [phone] * Verbal permission to speak to the caregivers and representatives has been obtained from the patient. Yes * Community resources currently utilized None * Additional services required to return to the preadmission environment? No * Can the patient safely return to the preadmission environment? Yes * Has this patient been hospitalized within the prior 30 days at any hospital? No Last DP export: 07/24/19 11:06 a Patient Name: VANESA HURTADO Page 15043 at 1306 All edits/amendments must be made on the electronic document DICTATION DATE: 07/24/19 1306 DYNO TECHNICIAN: CARLYLE 07/24/19 1306 RPT#: [id number] DC DATE: STATUS: ADM IN [facility] [address] [place] [address] END OF REPORT
--- NOTE | 2019-07-24 13:07 | NUR ---
STILL SITTING IN CHAIR AT THIS TIME. IN BED (I TOLD HER LAY DOWN IN IT AND REST). DENIES NEEDS.
[2019-07-24] MEDS ORDERED: COUMADIN5 MG PO (13:24)
[2019-07-24] MEDS ORDERED: K-DUR20 MEQ PO (13:25)
[2019-07-24] MEDS ORDERED: LASIX40 MG PO (13:25)
--- NOTE | 2019-07-24 13:32 | NUR ---
OT NOTE: PT PERFORMED WELL TODAY; BED MOB WITH MOD ASSIST; STATIC SITTING ON EOB WIHTOUT SUPPORT X 5 MIN; PT WITH DIFFICULTY PERFORMING ADL TASKS DUE TO LIMITED USE OF L HAND SECONDARY TO GOUT/PAIN. SIT TO STAND WITH MIN/MOD ASSIST; ABLE TO TRANSFER FROM BED TO CHAIR WITH MIN ASSIST AND USE OF WALKER; MOD ASSIST TO REACH BACK AND SIT IN CHAIR. CAMDEN KNOX, OTR/L
--- NOTE | 2019-07-24 13:39 | NUR ---
REBEKAH WITH THERAPY IS PUTTING PATIENT BACK TO BED AT THIS TIME AND THEN WILL REMOVE HIS RIGHT IJ TRILAYSIS.
--- NOTE | 2019-07-24 14:01 | NUR ---
ASSISTED OFF BEDPAN WITH NO RESULTS AT THIS TIME. RIGHT IJ TRIALYSIS REMOVED WHILE ALYING FLAT. 2 X 2 AND LARGE OPSITE APPLIED. PATIENT AND INSTRUCTED TO CALL ME IF ANY BLEEDING SEEN. TO LAY FLAT X 15 MIN AND THEN I WILL SIT HIM UP. CALL LIGHT IN USE.
[2019-07-24 14:31] LABS: INR 1.5 (0.85-1.17); PROTIME 17.6 SECONDS (11.6-15.0)
--- NOTE | 2019-07-24 14:55 | MORECARE ---
CASE MANAGEMENT DISCHARGE SUMMARY PATIENT: VANESA HURTADO UNIT: [id number] ADM DATE: 07/13/19 AGE: 69 : 50 SEX: M ROOM/BED: D.2112 AUTHOR: JEFFREY,DOC PHYSICIAN: REFERRING PHYSICIAN: MILLIE HALL MD DATE OF SERVICE: 07/24/19 Discharge Plan Patient Name: VANESA HURTADO Facility: [facility]:[place] : 1950 Planned Disposition: Longterm Facility Anticipated Discharge Date: 07/24/19 Discharge Date: Expected LOS: 11 Initial Reviewer: [email or web address] Initial Review Date: 07/16/2019 Generated: 07/24/19 3:54 pm DCP- Discharge Planning Updated by [email or web address]: Joseph Barajas on 07/24/19 12:[address] Patient Name: VANESA HURTADO Encounter No: [id number] : 1950 Primary Insurance: MEDICARE A & B Anticipated DC Date: 07-24-2019 Planned Disposition: Longterm Facility External Planned Provider: [facility], MEDICARE REHAB BED DCP follow-up note: CM SPOKE TO DR. HALL AND TREATMENT TEAM IN MULTIDISCIPLINARY TEAM MEETING, INDICATES PT CAN DISCHARGE TO REHAB WHEN ACCEPTED. CM NOTIFIED SHARON OF [place], . CM FAXED UPDATE TO [place] VIA SHARON AT [phone]. CM WAITING ADMISSION DETERMINATION FROM THE [facility] IN [place] FOR REHAB. Joseph Barajas, ZEENAT ORTIZ DCP- Discharge Planning Updated by [email or web address]: Joseph Barajas on 07/23/19 3:[address] Patient Name: VANESA HURTADO Encounter No: [id number] : 1950 Primary Insurance: MEDICARE A & B Anticipated DC Date: Planned Disposition: Longterm Facility External Planned Provider: [facility], MEDICARE REHAB BED DCP follow-up note: CM RECEIVED MESSAGE FROM [facility] ASKING FOR [facility]. CM SPOKE TO DR. CORRALES AND REVIEWED CHART. CM CALLED [facility] AT [phone], SPOKE TO TANVI AND ANSWERED QUESTIONS FOR THEIR ADMISSION TEAM TO CONTINUE CONSIDERATION FOR ADMISSION. CM FAXED UPDATE TO [place] AT [phone]. CM SPOKE TO PT AND SPOUSE IN ROOM REGARDING MEDICARE AND COPAYS AFTER 20 DAYS IN RETIREMENT. PT'S SPOUSE REPORTS PT HAVING BLUE CROSS SUPPLEMENT THAT CM NOTES IS NOT LISTED ON ADMISSION PAPERWORK. CM OBTAINED COPY OF CARD, SENT TO [facility]OSPITAL REGIST[facility] [place]. CM WAITING ADMISSION DETERMINATION FROM THE [facility] [place] IN [place] FOR REHAB. Joseph Barajas, CASE MANAGEMENT DCP- Discharge Planning Updated by [id number]: Sangita Iglesias on 07/22/19 4:[address] CM SPOKE WITH PATIENT'S AMY IN REGARDS TO D/C PLANNING. CM STATED THAT PT RECOMMENDED PATIENT GO TO REHAB OR SNF UPON DISCHARGE FOR STRENGTHENING. DEMETRIUS SIGNED FOR [facility] IN [place] [phone]. FAX [phone]. CM WILL FAX INITIAL CLINICAL FOR REFERRAL Appended by Sangita Iglesias on 07/22/2019 17:21 CDT: CM also updated contact number Amy Hurtado [phone]. Amy also stated that patient has just received Home from [facility] in [place] just prior to admission. DCP- Discharge Planning Updated by [id number]: Sangita Iglesias on 07/19/19 3:[address] Per PT recommendations patient will need Rehab or SNF before returning home. CM attempted to speak to patient he kept dozing off and wouldn't answer questions regarding placement for strengthening. CM attempted to call spouse at [phone] no answer @ this time voicemail didn't list Amy as the contact. CM will try to get [facility] at later time. CM will continue to follow and assist as needed with discharge planning / needs. DCP- Discharge Planning Updated by [id number]: Sangita Iglesias on 07/16/19 5:[address] Patient Name: VANESA HURTADO Admission Status: Elective Accout number: [id number] Admission Date: 07-13-2019 : 1950 Admission Diagnosis:ACUTE KIDNEY FAILURE, UNSPECIFIED Attending: MILLIE HALL Current LOS: 3 Anticipated DC Date: Planned Disposition: Home Primary Insurance: MEDICARE A & B Discharge Planning Comments: CM met with patient at bedside after explaining CM role and obtaining verbal consent. Patient lives at home with his Amy where he is independent with his care and plans to return there upon discharge. Patient feels this would be a safe discharge. CM discussed availability / needs of home health and medical equipment. Patient denies any discharge needs at this time. Patient states he will have his family drive him home upon discharge. CM will continue to follow and assist as needed with discharge planning / needs. Pyrometer Mechanic: Sangita MARADIAGA - Discharge Planning Initial Assessment Updated by [id number]: Sangita Iglesias on 07/16/19 6:54 pm * Is the patient Alert and Oriented? Yes * How many steps to enter\exit or inside your home? * PCP OMKAR JEFFERS * [facility] * Preadmission Environment Home with Family * ADLs Independent * Equipment Walker * List name and contact numbers for known caregivers / representatives who currently or will assist patient after discharge: AMY HURTADO - SPOUSE- [phone] * Verbal permission to speak to the caregivers and representatives has been obtained from the patient. Yes * Community resources currently utilized None * Additional services required to return to the preadmission environment? No * Can the patient safely return to the preadmission environment? Yes * Has this patient been hospitalized within the prior 30 days at any hospital? No External Providers External Provider: [facility] Next Contact Date: 07/23/2019 Service Request Date: Service Type: Resolution: Reviewer: Comments: Last DP export: 07/24/19 12:06 p Patient Name: VANESA HURTADO Page 77533 at 1455 All edits/amendments must be made on the electronic document DICTATION DATE: 07/24/19 1454 BURRING WHEEL OPERATOR: CARLYLE 07/24/19 1454 RPT#: [id number] DC DATE: STATUS: ADM IN [facility] [address] [place] [address] END OF REPORT
--- NOTE | 2019-07-24 15:04 | MORECARE ---
CASE MANAGEMENT DISCHARGE SUMMARY PATIENT: VANESA HURTADO UNIT: [id number] ADM DATE: 07/13/19 AGE: 69 : 50 SEX: M ROOM/BED: D.2112 AUTHOR: JEFFREY,DOC PHYSICIAN: REFERRING PHYSICIAN: MILLIE HALL MD DATE OF SERVICE: 07/24/19 Discharge Plan Patient Name: VANESA HURTADO Facility: [facility]:[place] : 1950 Planned Disposition: Nursing Home Facility Anticipated Discharge Date: 07/24/19 Discharge Date: Expected LOS: 11 Initial Reviewer: [id number] Initial Review Date: 07/16/2019 Generated: 07/24/19 4:04 pm DCP- Discharge Planning Updated by [id number]: Joseph Barajas on 07/24/19 12:[address] Patient Name: VANESA HURTADO Encounter No: [id number] : 1950 Primary Insurance: MEDICARE A & B Anticipated DC Date: 07-24-2019 Planned Disposition: Nursing Home Facility External Planned Provider: [facility], MEDICARE REHAB BED DCP follow-up note: CM SPOKE TO DR. HALL AND TREATMENT TEAM IN MULTIDISCIPLINARY TEAM MEETING, INDICATES PT CAN DISCHARGE TO REHAB WHEN ACCEPTED. CM NOTIFIED SHARON OF [place], . CM FAXED UPDATE TO [place] VIA SHARON AT [phone]. CM WAITING ADMISSION DETERMINATION FROM THE [facility] IN [place] FOR REHAB. Joseph Barajas, ZEENAT ORTIZ DCP- Discharge Planning Updated by [id number]: Joseph Barajas on 07/23/19 3:[address] Patient Name: VANESA HURTADO Encounter No: [id number] : 1950 Primary Insurance: MEDICARE A & B Anticipated DC Date: Planned Disposition: Nursing Home Facility External Planned Provider: [facility], MEDICARE REHAB BED DCP follow-up note: CM [facility]CE[facility] M[facility]. CM SPOKE TO DR. CORRALES AND REVIEWED CHART. CM CALLED [facility] AT [phone], SPOKE TO TANVI AND ANSWERED QUESTIONS FOR THEIR ADMISSION TEAM TO CONTINUE CONSIDERATION FOR ADMISSION. CM FAXED UPDATE TO [place] AT [phone]. CM SPOKE TO PT AND SPOUSE IN ROOM REGARDING MEDICARE AND COPAYS AFTER 20 DAYS IN [facility]. PT'S SPOUSE REPORTS PT HAVING BLUE CROSS SUPPLEMENT THAT CM NOTES IS NOT LISTED ON ADMISSION PAPERWORK. CM OBTAINED COPY OF CARD, SENT TO [facility]PITAL REGIST[facility] [place]. CM WAITING ADMISSION DETERMINATION FROM THE [facility] [place] IN [place] FOR REHAB. Joseph Barajas, CASE MANAGEMENT DCP- Discharge Planning Updated by [id number]: Sangita Iglesias on 07/22/19 4:[address] CM SPOKE WITH PATIENT'S AMY IN REGARDS TO D/C PLANNING. CM STATED THAT PT RECOMMENDED PATIENT GO TO REHAB OR SNF UPON DISCHARGE FOR STRENGTHENING. DEMETRIUS SIGNED FOR [facility] IN [place] [phone]. FAX [phone]. CM WILL FAX INITIAL CLINICAL FOR REFERRAL Appended by Sangita Iglesias on 07/22/2019 17:21 CDT: CM also updated contact number Amy Hurtado [phone]. Amy also stated that patient has just received Home from [facility] in [place] just prior to admission. DCP- Discharge Planning Updated by [id number]: Sangita Iglesias on 07/19/19 3:[address] Per PT recommendations patient will need Rehab or SNF before returning home. CM attempted to speak to patient he kept dozing off and wouldn't answer questions regarding placement for strengthening. CM attempted to call spouse at [phone] no answer @ this time voicemail didn't list Amy as the contact. CM will try to get [facility] at later time. CM will continue to follow and assist as needed with discharge planning / needs. DCP- Discharge Planning Updated by [id number]: Sangita Iglesias on 07/16/19 5:[address] Patient Name: VANESA HURTADO Admission Status: Elective Accout number: [id number] Admission Date: 07-13-2019 : 1950 Admission Diagnosis:ACUTE KIDNEY FAILURE, UNSPECIFIED Attending: MILLIE HALL Current LOS: 3 Anticipated DC Date: Planned Disposition: Home Primary Insurance: MEDICARE A & B Discharge Planning Comments: CM met with patient at bedside after explaining CM role and obtaining verbal consent. Patient lives at home with his Amy where he is independent with his care and plans to return there upon discharge. Patient feels this would be a safe discharge. CM discussed availability / needs of home health and medical equipment. Patient denies any discharge needs at this time. Patient states he will have his family drive him home upon discharge. CM will continue to follow and assist as needed with discharge planning / needs. Community Leader: Sangita MARADIAGA - Discharge Planning Initial Assessment Updated by [email or web address]: Sangita Iglesias on 07/16/19 6:54 pm * Is the patient Alert and Oriented? Yes * How many steps to enter\exit or inside your home? * PCP OMKAR JEFFERS * [facility] * Preadmission Environment Home with Family * ADLs Independent * Equipment Walker * List name and contact numbers for known caregivers / representatives who currently or will assist patient after discharge: AMY HURTADO - SPOUSE- [phone] * Verbal permission to speak to the caregivers and representatives has been obtained from the patient. Yes * Community resources currently utilized None * Additional services required to return to the preadmission environment? No * Can the patient safely return to the preadmission environment? Yes * Has this patient been hospitalized within the prior 30 days at any hospital? No Last DP export: 07/24/19 1:55 p Patient Name: VANESA HURTADO Page 40333 at 1504 All edits/amendments must be made on the electronic document DICTATION DATE: 07/24/19 150 WRINKLE CHASER: CARLYLE 07/24/19 150 RPT#: [id number] DC DATE: STATUS: ADM IN [facility] [address] [place] [address] END OF REPORT
--- NOTE | 2019-07-24 15:12 | MORECARE ---
CASE MANAGEMENT DISCHARGE SUMMARY PATIENT: VANESA HURTADO UNIT: [id number] ADM DATE: 07/13/19 AGE: 69 : 50 SEX: M ROOM/BED: D.2 AUTHOR: JEFFREY,DOC PHYSICIAN: REFERRING PHYSICIAN: MILLIE HALL MD DATE OF SERVICE: 07/24/19 Discharge Plan Patient Name: VANESA HURTADO Facility: [facility]:[place] : 1950 Planned Disposition: Detention Facility Anticipated Discharge Date: 07/24/19 Discharge Date: Expected LOS: 11 Initial Reviewer: [id number] Initial Review Date: 07/16/2019 Generated: 07/24/19 4:12 pm Comments DCP- Discharge Planning Updated by [id number]: Joseph Barajas on 07/24/19 2:[address] Patient Name: VANESA HURTADO Encounter No: [id number] : 1950 Primary Insurance: MEDICARE A & B Anticipated DC Date: 07-24-2019 Planned Disposition: Detention Facility External Planned Provider: [facility], MEDICARE REHAB BED DCP follow-up note: CM RE[facility]IVED [facility], [facility] WILL ACCEPT PT TODAY. CM NOTIFIED PT AND IN ROOM, BOTH IN AGREEMENT WITH DISCHARGE TO REHAB TODAY. PT'S CALLING FOR A RIDE FOR HERSELF. PT'S BEDISDE NURSE NOTIFIED AND INFORMED CM THAT PT WILL NEED AMBULANCE TRANSPORT HE IS NOT ABLE TO SIT SAFELY FOR DURATION OF TRANSPORT. CM NOTIFIED PADMINI PHILIP. DISCHARGE RECEIVED. CM NOTIFIED [facility]. CM RECEIVED CALL FROM [facility], THEY NEED [facility] FAXED WHEN RECEIVED. CM FAXED DISCHARGE INFORMATION TO [facility] AT [phone]. NURSE REPORT TO BE CALLED TO [facility] AT [phone]. PT TO TRANSPORT VIA AMBULANCE. ZEENAT Hugo DCP- Discharge Planning Updated by [id number]: Joseph Barajas on 07/24/19 12:[address] Patient Name: VANESA HURTADO Encounter No: [id number] : 1950 Primary Insurance: MEDICARE A & B Anticipated DC Date: 07-24-2019 Planned Disposition: Detention Facility External Planned Provider: [facility], MEDICARE REHAB BED DCP follow-up note: CM SPOKE TO DR. HALL AND TREATMENT TEAM IN MULTIDISCIPLINARY TEAM MEETING, INDICATES PT CAN DISCHARGE TO REHAB WHEN ACCEPTED. CM NOTIFIED [facility] [place], . CM FAXED UPDATE TO [place] VIA [facility] AT [phone]. CM WAITING ADMISSION DETERMINATION FROM THE [facility] IN [place] FOR REHAB. ZEENAT Hugo MANAGEMENT DCP- Discharge Planning Updated by [id number]: Joseph Barajas on 07/23/19 3:[address] Patient Name: VANESA HURTADO Encounter No: [id number] : 1950 Primary Insurance: MEDICARE A & B Anticipated DC Date: Planned Disposition: Detention Facility External Planned Provider: [facility], MEDICARE REHAB BED DCP follow-up note: CM RECEIVED MESSAGE FROM [place] ASKING FOR [facility] INFORMATION. CM SPOKE TO DR. CORRALES AND REVIEWED CHART. CM CALLED [facility] AT [phone], SPOKE TO TANVI AND ANSWERED QUESTIONS FOR THEIR ADMISSION TEAM TO CONTINUE CONSIDERATION FOR ADMISSION. CM FAXED UPDATE TO [place] AT [phone]. CM SPOKE TO PT AND SPOUSE IN ROOM REGARDING MEDICARE AND COPAYS AFTER 20 DAYS IN [facility]. PT'S SPOUSE REPORTS PT HAVING BLUE CROSS SUPPLEMENT THAT CM NOTES IS NOT LISTED ON ADMISSION PAPERWORK. CM OBTAINED COPY OF CARD, SENT TO HOSPITAL REGISTRATION [facility] [place]. CM WAITING ADMISSION DETERMINATION FROM THE [facility] [place] IN [place] FOR REHAB. ZEENAT Hugo MANAGEMENT DCP- Discharge Planning Updated by [id number]: Sangita Iglesias on 07/22/19 4:[address] CM SPOKE WITH PATIENT'S [place] IN REGARDS TO D/C PLANNING. CM STATED THAT PT RECOMMENDED PATIENT GO TO REHAB OR SNF UPON DISCHARGE FOR STRENGTHENING. DEMETRIUS SIGNED FOR [facility] IN [place] [phone]. FAX [phone]. CM WILL FAX INITIAL CLINICAL FOR REFERRAL Appended by Sangita Iglesias on 07/22/2019 17:21 CDT: CM also updated contact number America Hurtado [phone]. America also stated that patient has just received Home from [facility] in [place] just prior to admission. DCP- Discharge Planning Updated by [id number]: Sangita Iglesias on 07/19/19 3:[address] Per PT recommendations patient will need Rehab or SNF before returning home. CM attempted to speak to patient he kept dozing off and wouldn't answer questions regarding placement for strengthening. CM attempted to call spouse at [phone] no answer @ this time voicemail didn't list [place] as the contact. CM will try to get DEMETRIUS at later time. CM will continue to follow and assist as needed with discharge planning / needs. DCP- Discharge Planning Updated by [id number]: Sangita Iglesias on 07/16/19 5:[address] Patient Name: VANESA HURTADO Admission Status: Elective Accout number: [id number] Admission Date: 07-13-2019 : 1950 Admission Diagnosis:ACUTE KIDNEY FAILURE, UNSPECIFIED Attending: MILLIE HALL Current LOS: 3 Anticipated DC Date: Planned Disposition: Home Primary Insurance: MEDICARE A & B Discharge Planning Comments: CM met with patient at bedside after explaining CM role and obtaining verbal consent. Patient lives at home with his [place] where he is independent with his care and plans to return there upon discharge. Patient feels this would be a safe discharge. CM discussed availability / needs of home health and medical equipment. Patient denies any discharge needs at this time. Patient states he will have his family drive him home upon discharge. CM will continue to follow and assist as needed with discharge planning / needs. Churn Operator: Sangita Iglesias DCPIA - Discharge Planning Initial Assessment Updated by [id number]: Sangita Iglesias on 07/16/19 6:54 pm * Is the patient Alert and Oriented? Yes * How many steps to enter\exit or inside your home? * PCP OMKAR JEFFERS * [facility] * Preadmission Environment Home with Family * ADLs Independent * Equipment Walker * List name and contact numbers for known caregivers / representatives who currently or will assist patient after discharge: AMERICA HURTADO - SPOUSE- [phone] * Verbal permission to speak to the caregivers and representatives has been obtained from the patient. Yes * Community resources currently utilized None * Additional services required to return to the preadmission environment? No * Can the patient safely return to the preadmission environment? Yes * Has this patient been hospitalized within the prior 30 days at any hospital? No Last DP export: 07/24/19 2:04 p Patient Name: VANESA HURTADO Page [id number] at 1512 All edits/amendments must be made on the electronic document DICTATION DATE: 07/24/191511 BED RUBBER: CARLYLE 07/24/191511 RPT#: [id number] DC DATE: STATUS: ADM IN [facility] [address] [place] [address] END OF REPORT
--- NOTE | 2019-07-24 15:45 | MORECARE ---
CASE MANAGEMENT DISCHARGE SUMMARY PATIENT: VANESA HURTADO UNIT: [id number] ADM DATE: 07/13/19 AGE: 69 : 50 SEX: M ROOM/BED: D.2 AUTHOR: JEFFREY,DOC PHYSICIAN: REFERRING PHYSICIAN: MILLIE HALL MD DATE OF SERVICE: 07/24/19 Discharge Plan Patient Name: VANESA HURTADO Facility: [facility]:[place] : 1950 Planned Disposition: Usp Facility Anticipated Discharge Date: 07/24/19 Discharge Date: Expected LOS: 11 Initial Reviewer: [id number] Initial Review Date: 07/16/2019 Generated: 07/24/19 4:44 pm Comments DCP- Discharge Planning Updated by [id number]: Joseph Barajas on 07/24/19 2:[address] Patient Name: VANESA HURTADO Encounter No: [id number] : 1950 Primary Insurance: MEDICARE A & B Anticipated DC Date: 07-24-2019 Planned Disposition: Usp Facility External Planned Provider: [facility], MEDICARE REHAB BED DCP follow-up note: CM RECEIVED CALL FROM [facility], THEY WILL ACCEPT PT TODAY. CM NOTIFIED PT AND IN ROOM, BOTH IN AGREEMENT WITH DISCHARGE TO REHAB TODAY. PT'S CALLING FOR A RIDE FOR HERSELF. PT'S BEDISDE NURSE NOTIFIED AND INFORMED CM THAT PT WILL NEED AMBULANCE TRANSPORT HE IS NOT ABLE TO SIT SAFELY FOR DURATION OF TRANSPORT. CM NOTIFIED PADMINI PHILIP. DISCHARGE RECEIVED. CM NOTIFIED [facility]. CM RECEIVED CALL FROM [facility], THEY NEED [facility] FAXED WHEN RECEIVED. CM FAXED DISCHARGE INFORMATION TO [facility] AT [phone]. NURSE REPORT TO BE CALLED TO [facility] AT [phone]. PT TO TRANSPORT VIA AMBULANCE. ZEENAT Hugo DCP- Discharge Planning Updated by [id number]: Joseph Barajas on 07/24/19 12:[address] Patient Name: VANESA HURTADO Encounter No: [id number] : 1950 Primary Insurance: MEDICARE A & B Anticipated DC Date: 07-24-2019 Planned Disposition: Usp Facility External Planned Provider: [facility], MEDICARE REHAB BED DCP follow-up note: CM SPOKE TO DR. HALL AND TREATMENT TEAM IN MULTIDISCIPLINARY TEAM MEETING, INDICATES PT CAN DISCHARGE TO REHAB WHEN ACCEPTED. CM NOTIFIED [facility] OF [place], . CM FAXED UPDATE TO [place] VIA [facility] AT [phone]. CM WAITING ADMISSION DETERMINATION FROM THE [facility] IN [place] FOR REHAB. ZEENAT Hugo MANAGEMENT DCP- Discharge Planning Updated by [id number]: Joseph Barajas on 07/23/19 3:[address] Patient Name: VANESA HURTADO Encounter No: [id number] : 1950 Primary Insurance: MEDICARE A & B Anticipated DC Date: Planned Disposition: Usp Facility External Planned Provider: [facility], MEDICARE REHAB BED DCP follow-up note: CM RECEIVED MESSAGE FROM [place] ASKING FOR [facility] INFORMATION. CM SPOKE TO DR. CORRALES AND REVIEWED CHART. CM CALLED [place] AT [phone], SPOKE TO TANVI AND ANSWERED QUESTIONS FOR THEIR ADMISSION TEAM TO CONTINUE CONSIDERATION FOR ADMISSION. CM FAXED UPDATE TO [place] AT [phone]. CM SPOKE TO PT AND SPOUSE IN ROOM REGARDING MEDICARE AND COPAYS AFTER 20 DAYS IN [place]. PT'S SPOUSE REPORTS PT HAVING BLUE CROSS SUPPLEMENT THAT CM NOTES IS NOT LISTED ON ADMISSION PAPERWORK. CM OBTAINED COPY OF CARD, SENT TO HOSPITAL REGISTRATION [facility] [place]. CM WAITING ADMISSION DETERMINATION FROM THE [facility] AT [place] IN [place] FOR REHAB. ZEENAT Hugo MANAGEMENT DCP- Discharge Planning Updated by [id number]: Sangita Iglesias on 07/22/19 4:[address] CM SPOKE WITH PATIENT'S [place] IN REGARDS TO D/C PLANNING. CM STATED THAT PT RECOMMENDED PATIENT GO TO REHAB OR SNF UPON DISCHARGE FOR STRENGTHENING. DEMETRIUS SIGNED FOR [facility] IN [place] [phone]. FAX [phone]. CM WILL FAX INITIAL CLINICAL FOR REFERRAL Appended by Sangita Iglesias on 07/22/2019 17:21 CDT: CM also updated contact number America Hurtado [phone]. America also stated that patient has just received Home from [facility] in [place] just prior to admission. DCP- Discharge Planning Updated by [id number]: Sangita Iglesias on 07/19/19 3:[address] Per PT recommendations patient will need Rehab or SNF before returning home. CM attempted to speak to patient he kept dozing off and wouldn't answer questions regarding placement for strengthening. CM attempted to call spouse at [phone] no answer @ this time voicemail didn't list [place] as the contact. CM will try to get DEMETRIUS at later time. CM will continue to follow and assist as needed with discharge planning / needs. DCP- Discharge Planning Updated by [id number]: Sangita Iglesias on 07/16/19 5:[address] Patient Name: VANESA HURTADO Admission Status: Elective Accout number: [id number] Admission Date: 07-13-2019 : 1950 Admission Diagnosis:ACUTE KIDNEY FAILURE, UNSPECIFIED Attending: MILLIE HALL Current LOS: 3 Anticipated DC Date: Planned Disposition: Home Primary Insurance: MEDICARE A & B Discharge Planning Comments: CM met with patient at bedside after explaining CM role and obtaining verbal consent. Patient lives at home with his [place] where he is independent with his care and plans to return there upon discharge. Patient feels this would be a safe discharge. CM discussed availability / needs of home health and medical equipment. Patient denies any discharge needs at this time. Patient states he will have his family drive him home upon discharge. CM will continue to follow and assist as needed with discharge planning / needs. Marketing Underwriter: Sangita Iglesias DCPIA - Discharge Planning Initial Assessment Updated by [id number]: Sangita Iglesias on 07/16/19 6:54 pm * Is the patient Alert and Oriented? Yes * How many steps to enter\exit or inside your home? * PCP OMKAR JEFFERS * [facility] * Preadmission Environment Home with Family * ADLs Independent * Equipment Walker * List name and contact numbers for known caregivers / representatives who currently or will assist patient after discharge: AMERICA HURTADO - SPOUSE- [phone] * Verbal permission to speak to the caregivers and representatives has been obtained from the patient. Yes * Community resources currently utilized None * Additional services required to return to the preadmission environment? No * Can the patient safely return to the preadmission environment? Yes * Has this patient been hospitalized within the prior 30 days at any hospital? No Last DP export: 07/24/19 2:12 p Patient Name: VANESA HURTADO Page [id number] at 1545 All edits/amendments must be made on the electronic document DICTATION DATE: 07/24/191543 BRASS INSTRUMENT REPAIR TECHNICIAN: CARLYLE 07/24/19 1544 RPT#: [id number] DC DATE: STATUS: ADM IN [facility] [address] [place] [address] END OF REPORT
--- NOTE | 2019-07-24 15:55 | NUR ---
REPORT CALLED TO ADILIA MONROE AT [facility] IN [place], [place]. WILL GIVE COURTSEY CALL WHEN GETS A RIDE AND I CALL THE AMBULANCE.
--- NOTE | 2019-07-24 16:28 | MORECARE ---
CASE MANAGEMENT DISCHARGE SUMMARY PATIENT: VANESA HURTADO UNIT: [id number] ADM DATE: 07/13/19 AGE: 69 : 50 SEX: M ROOM/BED: D.2 AUTHOR: JEFFREY,DOC PHYSICIAN: REFERRING PHYSICIAN: MILLIE HALL MD DATE OF SERVICE: 07/24/19 Discharge Plan Patient Name: VANESA HURTADO Facility: [facility]:[place] : 1950 Planned Disposition: Penitentiary Facility Anticipated Discharge Date: 07/24/19 Discharge Date: Expected LOS: 11 Initial Reviewer: [id number] Initial Review Date: 07/16/2019 Generated: 07/24/19 5:27 pm Comments DCP- Discharge Planning Updated by [id number]: Joseph Barajas on 07/24/19 3:[address] Patient Name: VANESA HURTADO Encounter No: [id number] : 1950 Primary Insurance: MEDICARE A & B Anticipated DC Date: 07-24-2019 Planned Disposition: Penitentiary Facility External Planned Provider: [facility] MEDICARE REHAB BED DCP follow-up note: CM RECEIVED CALL FROM [facility], THEY WILL ACCEPT PT TODAY. CM NOTIFIED PT AND IN ROOM, BOTH IN AGREEMENT WITH DISCHARGE TO REHAB TODAY. PT'S CALLING FOR A RIDE FOR HERSELF. PT'S BEDISDE NURSE NOTIFIED AND INFORMED CM THAT PT WILL NEED AMBULANCE TRANSPORT HE IS NOT ABLE TO SIT SAFELY FOR DURATION OF TRANSPORT. CM NOTIFIED PADMINI PHILIP. DISCHARGE RECEIVED. CM NOTIFIED [facility]. CM RECEIVED CALL FROM [facility], THEY NEED [facility] FAXED WHEN RECEIVED. CM FAXED DISCHARGE INFORMATION TO [facility] AT [phone]. NURSE REPORT TO BE CALLED TO [facility] AT [phone]. PT TO TRANSPORT VIA AMBULANCE. Joseph Barajas, CASE MANGEMENT Appended by Joseph Barajas on 07/24/2019 16:24 CDT: CM PROVIDED AND DISCUSSED IMPORTANT MESSAGE FROM MEDICARE TO PT AND SPOUSE IN ROOM. ZEENAT LAY DCP- Discharge Planning Updated by [id number]: Joseph Barajas on 07/24/19 12:[address] Patient Name: VANESA HURTADO Encounter No: [id number] : 1950 Primary Insurance: MEDICARE A & B Anticipated DC Date: 07-24-2019 Planned Disposition: Penitentiary Facility External Planned Provider: [facility], MEDICARE REHAB BED DCP follow-up note: CM SPOKE TO DR. HALL AND TREATMENT TEAM IN MULTIDISCIPLINARY TEAM MEETING, INDICATES PT CAN DISCHARGE TO REHAB WHEN ACCEPTED. CM NOTIFIED [facility] OF [place], . CM FAXED UPDATE TO [place] VIA [facility] AT [phone]. CM WAITING ADMISSION DETERMINATION FROM THE [facility] IN [place] FOR REHAB. Joseph Barajas, CASE MANAGEMENT DCP- Discharge Planning Updated by [id number]: Joseph Barajas on 07/23/19 3:[address] Patient Name: VANESA HURTADO Encounter No: [id number] : 1950 Primary Insurance: MEDICARE A & B Anticipated DC Date: Planned Disposition: Penitentiary Facility External Planned Provider: [facility], MEDICARE REHAB BED DCP follow-up note: CM RECEIVED MESSAGE FROM [facility] ASKING FOR [facility] INFORMATION. CM SPOKE TO DR. CORRALES AND REVIEWED CHART. CM CALLED [facility] AT [phone], SPOKE TO TANVI AND ANSWERED QUESTIONS FOR THEIR ADMISSION TEAM TO CONTINUE CONSIDERATION FOR ADMISSION. CM FAXED UPDATE TO [facility] [place] AT [phone]. CM SPOKE TO PT AND SPOUSE IN ROOM REGARDING MEDICARE AND COPAYS AFTER 20 DAYS IN [facility]. PT'S SPOUSE REPORTS PT HAVING BLUE CROSS SUPPLEMENT THAT CM NOTES IS NOT LISTED ON ADMISSION PAPERWORK. CM OBTAINED COPY OF CARD, SENT TO [facility]PITAL REGIST[facility] [place]. CM WAITING ADMISSION DETERMINATION FROM THE [facility] IN [place] FOR REHAB. Joseph Barajas, CASE MANAGEMENT DCP- Discharge Planning Updated by [id number]: Sangita Iglesias on 07/22/19 4:[address] CM SPOKE WITH PATIENT'S [place] IN REGARDS TO D/C PLANNING. CM STATED THAT PT RECOMMENDED PATIENT GO TO REHAB OR SNF UPON DISCHARGE FOR STRENGTHENING. DEMETRIUS SIGNED FOR [facility] IN [place] [phone]. FAX [phone]. CM WILL FAX INITIAL CLINICAL FOR REFERRAL Appended by Sangita Iglesias on 07/22/2019 17:21 CDT: CM also updated contact number America Hurtado [phone]. America also stated that patient has just received Home from [facility] in [place] just prior to admission. DCP- Discharge Planning Updated by [id number]: Sangita Iglesias on 07/19/19 3:[address] Per PT recommendations patient will need Rehab or SNF before returning home. CM attempted to speak to patient he kept dozing off and wouldn't answer questions regarding placement for strengthening. CM attempted to call spouse at [phone] no answer @ this time voicemail didn't list [place] as the contact. CM will try to get [facility] at later time. CM will continue to follow and assist as needed with discharge planning / needs. DCP- Discharge Planning Updated by [id number]: Sangita Iglesias on 07/16/19 5:[address] Patient Name: VANESA HURTADO Admission Status: Elective Accout number: [id number] Admission Date: 07-13-2019 : 1950 Admission Diagnosis:ACUTE KIDNEY FAILURE, UNSPECIFIED Attending: MILLIE HALL Current LOS: 3 Anticipated DC Date: Planned Disposition: Home Primary Insurance: MEDICARE A & B Discharge Planning Comments: CM met with patient at bedside after explaining CM role and obtaining verbal consent. Patient lives at home with his [place] where he is independent with his care and plans to return there upon discharge. Patient feels this would be a safe discharge. CM discussed availability / needs of home health and medical equipment. Patient denies any discharge needs at this time. Patient states he will have his family drive him home upon discharge. CM will continue to follow and assist as needed with discharge planning / needs. Carbon Capture Power Plant Operator: Sangita Iglesias DCPIA - Discharge Planning Initial Assessment Updated by [id number]: Sangita Iglesias on 07/16/19 6:54 pm * Is the patient Alert and Oriented? Yes * How many steps to enter\exit or inside your home? * PCP OMKAR JEFFERS * Pharmacy [facility] * Preadmission Environment Home with Family * ADLs Independent * Equipment Walker * List name and contact numbers for known caregivers / representatives who currently or will assist patient after discharge: AMERICA HURTADO - SPOUSE- [phone] * Verbal permission to speak to the caregivers and representatives has been obtained from the patient. Yes * Community resources currently utilized None * Additional services required to return to the preadmission environment? No * Can the patient safely return to the preadmission environment? Yes * Has this patient been hospitalized within the prior 30 days at any hospital? No Coverage Notice Reviewer: [id number] Esther Barajas Notice Issued Date-Time: 07/24/2019 15:55 Notice Type: IM Discharge Notice Notice Delivered To: Family Member Relationship to Patient: Spouse Freight Broker Name: AMERICA OLIVERA Delivery Method: HAND - Hand Delivered Radha Days: Prior Verbal Notification: Recipient Understood Notice: Yes Recipient Signature: Yes Med Rec Note Co-signed by Attending: Coverage Notice Comment: Last DP export: 07/24/19 2:45 p Patient Name: VANESA HURTADO Page 77796 at 1628 All edits/amendments must be made on the electronic document DICTATION DATE: 07/24/191626 HAIRSPRING INSPECTOR: CARLYLE 07/24/191626 RPT#: [id number] DC DATE: STATUS: ADM IN [facility] [address] [place] [address] END OF REPORT
--- NOTE | 2019-07-24 16:48 | NUR ---
I CALLED [facility] FOR TRANSPORT RIDE IS ALMOST HERE.
--- NOTE | 2019-07-24 17:29 | NUR ---
LEFT WITH FRIENDS TO CATCH A RIDE BACK, AWAITING [facility].
[2019-07-24 17:37] VITALS: BP 101/69
--- NOTE | 2019-07-24 19:01 | NUR ---
SALINE LOCK REMOVED WITH TIP INTACT. [facility] IS HERE FOR TRANSPORT. I CALLED [facility] IN [place] AND LET THEM KNOW. DISCHARGED TO [place] VIA [facility].
[2019-07-26 09:10] LABS: HEXAGONAL PHASE PHOS 16 sec (0-11); LUPUS - INTERPRETATION Comment: (()); LUPUS - THROMBIN NEUT 134.1 sec (0.0-23.0); LUPUS - THROMBIN TIME 110.3 sec (0.0-23.0); LUPUS - dRVVT CONFIRMATION 0.8 ratio (0.8-1.2); PTT-LA 93.8 sec (0.0-51.9); PTT-LA MIX 91.2 sec (0.0-48.9)
== END 2019-07-24 19:02 | DRG 291 ==
LOC: D.ICU 11:59 → EDBD 14:12 → D.M2 07-22 16:00 → EDBD 07-24 19:02
PROVIDERS: Family Medicine; Internal Medicine Hematology & Oncology; Internal Medicine Nephrology; Internal Medicine Pulmonary Disease; ADMIT Internal Medicine Nephrology; ATTEND Internal Medicine Nephrology
PROC: 05HM33Z Insertion of Infusion Device into Right Internal Jugular Vein, Percutaneous Approach (ICD-10-PCS; principal; 2019-07-13)
DX: I13.0 Hypertensive heart and chronic kidney disease with heart failure and stage 1 through stage 4 chronic kidney disease, or unspecified chronic kidney disease (principal); J18.9 Pneumonia, unspecified organism; J96.01 Acute respiratory failure with hypoxia; I50.23 Acute on chronic systolic (congestive) heart failure; N17.9 Acute kidney failure, unspecified; N18.4 Chronic kidney disease, stage 4 (severe); E87.2 Acidosis; I82.401 Acute embolism and thrombosis of unspecified deep veins of right lower extremity; J98.11 Atelectasis; I25.10 Atherosclerotic heart disease of native coronary artery without angina pectoris; J44.9 Chronic obstructive pulmonary disease, unspecified; E87.6 Hypokalemia; R53.81 Other malaise; E78.5 Hyperlipidemia, unspecified; D75.82 Heparin induced thrombocytopenia (HIT); I48.91 Unspecified atrial fibrillation

== ENCOUNTER 2019-08-20 06:05 | Inpatient (IN) | payer MEDICARE, BC ==
[2019-08-20] VITALS (61 sets, daily range): BP systolic 75–98; BP diastolic 49–66; BMI 30.6
[~2019-08-20] VITALS: Ht 177.8 cm; Wt 100.2 kg
[~2019-08-20 06:05] MED LIST: BAYER CHEWABLE81 MG PO; COLCRYS0.6 MG PO; COREG 3.1253.125 MG PO; COUMADIN5 MG PO; ELIQUIS5 MG PO; ENTRESTO 24 MG1 EACH PO; FUROSEMIDE40 MG PO; K-DUR20 MEQ PO; LASIX40 MG PO; LINZESS145 MCG PO; MAGNESIUM OXID250 MG PO; METOLAZONE2.5 MG PO; MULTI-DAY VITAM1 TAB PO; OXYBUTYNIN CHLOR5 MG PO; PACERONE400 MG PO; REMERON15 MG PO; SENNA LAXATIVE8.6 MG PO; ZYLOPRIM300 MG PO
--- NOTE | 2019-08-20 06:10 | NUR ---
PT RECIEVED TO [facility] VIA [facility] PER EMS. MONITOR EQUIP ESTABLISHED. PACED RYTHMN PER CM. PT IS LETHARGIC. ORIENTED TO SELF AND PLACE. ASKED US TO CALL HIS AND LET HER KNOW HE IS HERE AND TO GIVE HER THE PASSWORD ([employer]) SO SHE CAN RECIEVE INFORMATION. HE STATES THAT HE IS DNR. CONFIRMED BY CLAUDIO Pantoja RN.
--- NOTE | 2019-08-20 07:00 | NUR ---
SPOKE WITH Taryn BRYANT VIA PHONE. PASSWORD SET UP. SHE CONFIRMED THAT HE IS DNR.
--- NOTE | 2019-08-20 07:00 | NUR ---
REPORT RECEVIED FROM THE OFF GOING RN. ASSESSMENT WAS DONE BY THIS NURSE AND RFANCISCO RN. PT A&O X4. ASKED THE PT THAT IF HE WANTED TO BE A FULL CODE OR A DNR AND HE STATED DNR. "IM A DNR. IF I GO, JUST LET ME GO IN [place]ACE". PT 100% PACED. PT HYPOTENSIVE. DR HALL PAGEAilyn. CVL NOTED TO HIS [facility] IJ. CVL DRESSING CHANGED. FC NOTED WITH DARK CONCETRATED URINE. PT STATES THAT BOTH THE CVL AND FC WHERE PLACED IN AN OUTSIDE HOSPITAL. ST 2 ULCER NOTED TO BUTTOCKS. MEPLIEX DRESSING APPLIED TO BUTTOCKS. PT REPOSITIONED. CALL LIGHT IN REACH. WILL CONT POC.
--- NOTE | 2019-08-20 07:08 | NUR ---
SPOKE WITH DR MCLAUGHLIN. CBC, CPM, PRO BNP, CARDIAC ENZYMES, ECHO, AND CXR ORDERED PER DR HALL. UPDATED HIM ON THE PT BEING HYPOTENSIVE WITH A MAP ABOVE 70. DR HALL OK WITH THE BP. WILL CONT MONITOR.
--- NOTE | 2019-08-20 08:30 | NUR ---
DR HALL CALLED AND NOTIFIED ABOUT PT/INR. HE STATE HE WILL BE IN THE UNIT SOON. WILL CONT POC.
--- NOTE | 2019-08-20 08:40 | NUR ---
DR HALL IN THE UNIT. SEE ORDERS.
[2019-08-20 08:42] LABS: BASOPHILS 0 % (0-2); EOSINOPHILS 0.4 % (0-7); HEMATOCRIT 31.1 % (42.0-54.0); HEMOGLOBIN 10.2 g/dL (13.5-17.5); IMMATURE GRANULOCYTES 0.5 % (0-5); LYMPHOCYTES 3.8 % (15-50); MCH 24.7 pg (26.0-34.0); MCHC 32.8 g/dL (31.0-37.0); MCV 75.3 fL (80.0-100.0); MONOCYTES 4.7 % (2-11); NEUTROPHILS 90.6 % (40-80); PLATELET COUNT 117 10x3/uL (130-400); RBC 4.13 10x6/uL (4.20-6.10); RDW 22.8 % (11.5-14.5); WBC 8.4 10x3/uL (4.8-10.8)
[2019-08-20 08:44] LABS: APPEARANCE CLOUDY (CLEAR); BILIRUBIN NEGATIVE (NEGATIVE); COLOR YELLOW (YELLOW); GLUCOSE NEGATIVE (NEGATIVE); KETONE NEGATIVE (NEGATIVE); NITRITE NEGATIVE (NEGATIVE); PROTEIN 1+ mg/dL (NEGATIVE); SPECIFIC GRAVITY 1.015 (1.005-1.020); UROBILINOGEN NORMAL (NORMAL)
[2019-08-20 08:46] LABS: RED CELLS - URINE >50 /hpf (0-5)
[2019-08-20 08:47] LABS: AMORPHOUS SEDIMENT <1+ /lpf (NONE SEEN); BACTERIA MODERATE /hpf (NEGATIVE); EPITHELIAL CELLS NSEEN /hpf (0-5); HYALINE CAST 0-5 /lpf (NONE SEEN)
[2019-08-20 08:48] LABS: APTT 64.1 SECONDS (22.8-39.4)
[2019-08-20 08:49] LABS: D-DIMER-QUANTITATIVE 2.85 ug/mLFEU (0.20-0.54)
[2019-08-20 08:52] LABS: INR 8.45 (0.85-1.17); PROTIME 69.1 SECONDS (11.6-15.0)
[2019-08-20 09:15] LABS: ALBUMIN 2.2 g/dL (3.4-5.0); ALKALINE PHOSPHATASE 196 U/L (46-116); ALT (SGPT) 34 U/L (10-68); BILIRUBIN - TOTAL 1.34 mg/dL (0.2-1.3); CALC OSMOLALITY 286 mosm/kg (275-300); CALCIUM 8.4 mg/dL (8.5-10.1); CARBON DIOXIDE 22.7 mmol/L (21.0-32.0); CHLORIDE - SERUM 99 mmol/L (98-107); CKMB 1.8 U/L (0.0-3.6); CREATINE KINASE 246 UL (21-232); CREATININE - SERUM 4.7 mg/dL (0.6-1.3); GLUCOSE 82 mg/dL (74-106); MAGNESIUM - SERUM 1.6 mg/dL (1.8-2.4); POTASSIUM - SERUM 4.7 mmol/L (3.5-5.1); PROTEIN - SERUM 5.9 g/dL (6.4-8.2); SODIUM 134 mmol/L (136-145); UREA NITROGEN 69 mg/dL (7-18); eGFR NON AFRICAN AMERICAN 13 mL/min (90-120)
[2019-08-20 09:20] LABS: TROPONIN-I 0.334 ng/mL (0.000-0.060)
[2019-08-20 09:42] LABS: PRO BNP 40042 pg/mL (0-125)
--- NOTE | 2019-08-20 10:00 | NUR ---
DR CHRIS AT THE PTS BESIDE. INCREASE DOBUTAMINE TO 5MCG/KG/MIN
--- NOTE | 2019-08-20 10:00 | NUR ---
DR CHRIS AT THE PTS BEDSIDE.
--- NOTE | 2019-08-20 11:00 | NUR ---
REASSESSMENT COMPLETED. SEE FLOW SHEET.
--- NOTE | 2019-08-20 11:10 | NUR ---
RENAL PAGED ABOUT CONSULT. SPOKE WITH DR LYON. OK TO REPLACE MAG.
--- NOTE | 2019-08-20 13:38 | CN ---
PATIENT NAME:VANESA HURTADO MEDICAL RECORD: [id number] : 50 LOCATION:[facility].CV07 ADMIT DATE: 08/20/19 ACCOUNT: [id number] CONSULTING PHYSICIAN: CHIKI CHRIS MD REFERRING PHYSICIAN: MILLIE HALL MD DATE OF CONSULTATION: 08/20/2019 DIAGNOSES: 1. Cardiomyopathy. 2. Congestive heart failure, chronic systolic dysfunction. 3. Shortness of breath, dyspnea on exertion. 4. Edema. 5. Paroxysmal atrial fibrillation. 6. Coumadin anticoagulation. 7. Pacemaker ICD. 8. Hypertension. 9. Renal failure. 10. Coronary artery disease. HISTORY OF PRESENT ILLNESS: Mr. Hurtado presents with generalized weakness and shortness of breath. He presented to [facility]. He was given fluids there due to hypotension and that threw him into a fluid overload, congestive heart failure state. They tried to diurese him. He is sent here for a higher level of care. His ejection fraction on echo was 15% to 20%. He has an ischemic cardiomyopathy. He has a history of coronary artery disease followed at the [facility]. He has a history of an ICD. He has not had any anginal symptomatology. Troponin is mildly positive. His EKG is paced with a wide ventricular complex. He is on Coreg, Entresto, and Lasix at home. He has a history of atrial fibrillation. He is on Coumadin for that as well as a history of a DVT, PE and he is with an INR of 8.0 as well. He is being given FFP at this time. PHYSICAL EXAMINATION: CONSTITUTIONAL/GENERAL APPEARANCE: Well nourished, well developed, appears stated age. EYES: Lids and conjunctivae noninjected. No discharge. No pallor. ENT: Lips within normal limit. No cyanosis. No pallor. NECK: Carotid arteries, bilateral normal upstroke. No bruits. No thrills. No jugular venous pressure or distention. CERVICAL LYMPH NODES: Nontender. Nonenlarged. THYROID: Not enlarged. No nodules. CARDIOVASCULAR: Precordial exam, nondisplaced. No heaves or pericardial thrills. Rate and rhythm, regular. Heart sounds, normal S1, normal S2. No S3, no gallop, no rub. Systolic murmur, not heard. Diastolic murmur, not heard. RESPIRATORY: Respiratory effort, unlabored. Normal curvature. No thoracic deformity. No chest wall tenderness. Percussion, resonant. Auscultation, clear. No wheezes, no rales, no rhonchi. ABDOMEN: Soft, nondistended, nontender. No abdominal pain, no vomiting and normal appetite. MUSCULOSKELETAL: No joint tenderness, normal gait, normal tone. SKIN: Warm and dry. OVERALL IMPRESSION: 1. Congestive heart failure, chronic systolic dysfunction. At this time, we will start dobutamine at 5 mcg per kilogram per minute to give inotropic support CONSULT REPORT [id number] VANESA HURTADO for improved renal perfusion and diuresis. 2. ICD pacemaker, on telemetry. He has had no dysrhythmias at this time. Pacemaker appears to be functioning normally. We will interrogate this. 3. Hypotension. He is currently on Coreg, Entresto. These are on hold secondary to his renal failure and his hypotension. We would leave these on hold at this time. At this time, no other cardiac workup or treatment is necessary as he has recently had an echocardiogram, only institution of the dobutamine possibly after this would suggest a Bumex drip. I will leave this to renal. TRANSINT:[id number] Voice Confirmation ID: [id number] DOCUMENT ID: [id number] CHIKI CHRIS MD at 1338 CC: [id number] DICTATION DATE: 08/20/19 1008 MANAGER MEAT: 08/20/19 1217 ADM IN [place] [address] [place] [address]
--- NOTE | 2019-08-20 14:19 | NUR ---
DR LYON AT THE PTS BEDSIDE.
--- NOTE | 2019-08-20 16:25 | NUR ---
SPOKE WITH DR HALL. BUMEX 3MG IV Q8H.
[2019-08-21] VITALS (62 sets, daily range): BP systolic 73–97; BP diastolic 48–64; Ht 177.8 cm; Wt 100.2 kg
[2019-08-21 05:37] LABS: BASOPHILS 0 % (0-2); EOSINOPHILS 0.1 % (0-7); HEMATOCRIT 28.3 % (42.0-54.0); HEMOGLOBIN 9.3 g/dL (13.5-17.5); IMMATURE GRANULOCYTES 0.6 % (0-5); LYMPHOCYTES 1.9 % (15-50); MCH 24.9 pg (26.0-34.0); MCHC 32.9 g/dL (31.0-37.0); MCV 75.9 fL (80.0-100.0); MONOCYTES 6.6 % (2-11); NEUTROPHILS 90.8 % (40-80); PLATELET COUNT 101 10x3/uL (130-400); RBC 3.73 10x6/uL (4.20-6.10); RDW 22.6 % (11.5-14.5)
[2019-08-21 05:50] LABS: ALBUMIN 2.1 g/dL (3.4-5.0); ANION GAP 15.1 mmol/L (8-16); BILIRUBIN - TOTAL 1.15 mg/dL (0.2-1.3); CALCIUM 8.1 mg/dL (8.5-10.1); CARBON DIOXIDE 24.9 mmol/L (21.0-32.0); CREATININE - SERUM 4.4 mg/dL (0.6-1.3); PROTEIN - SERUM 5.8 g/dL (6.4-8.2); VANCOMYCIN - RANDOM 9.1 ug/mL (10.0-20.0)
[2019-08-21 06:49] LABS: PROTIME 46.9 SECONDS (11.6-15.0)
[2019-08-21 06:50] LABS: INR 5.18 (0.85-1.17)
--- NOTE | 2019-08-21 07:00 | NUR ---
REC'D REPORT AND RESUMED CARE, SLEEPING AROUSABLE TO VERBAL STIMULI, BP 80/57, WITH 111 HR, OTHER VSS, DENIES PAIN, CALL LIGHT IN REACH, ASSESSMENT COMPLETED PER FLOWSHEET, REPOSITIONED UP AND TO BACK WITH HEELS FLOATEDNO THER NEEDS A THIS TIME
--- NOTE | 2019-08-21 09:00 | NUR ---
MORNING MEDS GIVEN PER FLOWSHEET, TOLERATED WITHOUT DIFFICULTY
--- NOTE | 2019-08-21 11:00 | NUR ---
SLEEPING AROUSABLE TO VERBAL STIMULI, VSS, DENIES PAIN, ASSESSMENT COMPLETE PER FLOWSHEET, NO ACUTE CHANGE FROM PREVIOUS
--- NOTE | 2019-08-21 12:30 | NUR ---
LUNCH TRAY TO BEDSIDE, REUSED, STATES NOT HUNGRY
--- NOTE | 2019-08-21 14:32 | MORECARE ---
CASE MANAGEMENT DISCHARGE SUMMARY PATIENT: VANESA HURTADO UNIT: [id number] ADM DATE: 08/20/19 AGE: 69 : 50 SEX: M ROOM/BED: [facility] AUTHOR: MARIZOL MURPHY PHYSICIAN: REFERRING PHYSICIAN: MILLIE HALL MD DATE OF SERVICE: 08/21/19 Discharge Plan Patient Name: VANESA HURTADO Facility: [facility]:[place] : 1950 Planned Disposition: Intermediate Facility Anticipated Discharge Date: Discharge Date: Expected LOS: Initial Reviewer: [email or web address] Initial Review Date: 08/21/2019 Generated: 08/21/19 3:31 pm DCPIA - Discharge Planning Initial Assessment Updated by [email or web address]: Sangita Iglesias on 08/21/19 2:28 pm * Is the patient Alert and Oriented? Yes * How many steps to enter\exit or inside your home? * PCP AURY * [facility] * Preadmission Environment Intermediate Facility * Facility Name [facility] * List name and contact numbers for known caregivers / representatives who currently or will assist patient after discharge: AMERICA HURTADO - - [phone] * Verbal permission to speak to the caregivers and representatives has been obtained from the patient. Yes * Community resources currently utilized None * Additional services required to return to the preadmission environment? No * Can the patient safely return to the preadmission environment? Yes * Has this patient been hospitalized within the prior 30 days at any hospital? Yes Patient Name: VANESA HURTADO Page 23497 at 1432 All edits/amendments must be made on the electronic document DICTATION DATE: 08/21/19 1431 ACCOUNTS SUPERVISOR: CARLYLE 08/21/19 1431 RPT#: [id number] DC DATE: STATUS: ADM IN [facility] [address] [place] [address] END OF REPORT
--- NOTE | 2019-08-21 14:51 | MORECARE ---
CASE MANAGEMENT DISCHARGE SUMMARY PATIENT: VANESA HURTADO UNIT: [id number] ADM DATE: 08/20/19 AGE: 69 : 50 SEX: M [facility] AUTHOR: JEFFREYDOC PHYSICIAN: REFERRING PHYSICIAN: MILLIE HALL MD DATE OF SERVICE: 08/21/19 Discharge Plan Patient Name: VANESA HURTADO Facility: [facility]:[place] : 1950 Planned Disposition: Half-Way Facility Anticipated Discharge Date: Discharge Date: Expected LOS: Initial Reviewer: [email or web address] Initial Review Date: 08/21/2019 Generated: 08/21/19 3:50 pm Comments DCP- Discharge Planning Updated by [email or web address]: Sangita Iglesias on 08/21/19 1:[address] Patient Name: VANESA HURTADO Admission Status: Elective Accout number: [id number] Admission Date: 08-20-2019 : 1950 Admission Diagnosis: Attending: MILLIE HALL Current LOS: 1 Anticipated DC Date: Planned Disposition: Half-Way Facility Primary Insurance: MEDICARE A & B Discharge Planning Comments: CM met with patient and his Amy at bedside after explaining CM role and obtaining verbal consent. Patient has been at [facility] in [place] [phone] plans to return there upon discharge. Patient feels this would be a safe discharge. CM discussed availability / needs of home health and medical equipment. Patient denies any discharge needs at this time. CM will continue to follow and assist as needed with discharge planning / needs. Welder Manufacture: Sangita Iglesias DCPIA - Discharge Planning Initial Assessment Updated by [email or web address]: Sangita Iglesias on 08/21/19 2:28 pm * Is the patient Alert and Oriented? Yes * How many steps to enter\exit or inside your home? * PCP AURY * [facility] * Preadmission Environment Half-Way Facility * Facility Name [facility] * List name and contact numbers for known caregivers / representatives who currently or will assist patient after discharge: AMY HURTADO - - [phone] * Verbal permission to speak to the caregivers and representatives has been obtained from the patient. Yes * Community resources currently utilized None * Additional services required to return to the preadmission environment? No * Can the patient safely return to the preadmission environment? Yes * Has this patient been hospitalized within the prior 30 days at any hospital? Yes Last DP export: 08/21/19 1:32 p Patient Name: VANESA HURTADO Page [id number] at 1451 All edits/amendments must be made on the electronic document DICTATION DATE: 08/21/191449 MANAGER BUSINESS PROCESS: CARLYLE 08/21/191449 RPT#: [id number] DC DATE: STATUS: ADM IN [facility] [address] [place] [address] END OF REPORT
--- NOTE | 2019-08-21 15:00 | NUR ---
DR PERSON HERE FOR CONSULTATION WITH AT BEDSIDE, DISCUSSED PORR PROGNOSIS, AND RECOMMENDED COMFORT CARE, FAMILY ON BOARD AND WOULD LIKE PATIENT TO TO BE PLACED SOMEWHERE IN THE [place] AREA TO BE CLOSE TO FAMILY, PATIENT IN AGREEMENT, ORDER PLACE AND INFORMATION GIVEN TO CASE MANGEMENT, NO OTHER ACUTE CHANGE FROM PREVIOUS ASSESSMENT
--- NOTE | 2019-08-21 15:30 | NUR ---
CASE MANAGEMENT, AT BEDSIDE DISCUSSED WITH THAT HE MAY HAVE TO PAY ROOM IN BOARD PER NH IN [place], BECAUSE HE HAS MEDICARE, RICCARDO ALSO DISCUSSED WITH THAT THERE IS A PROBABILITY THAT HE WILL NOT MAKE IT TO [place] IF HE IS TAKEN OF ALL SUPPORTING BP MEDS, VERBALIZED UNDERSTANDING AND DECISION MADE TO GO HOME, AWAITING EVAL AT THIS TIME
--- NOTE | 2019-08-21 15:51 | MORECARE ---
CASE MANAGEMENT DISCHARGE SUMMARY PATIENT: VANESA HURTADO UNIT: [id number] ADM DATE: 08/20/19 AGE: 69 : 50 SEX: M [facility] AUTHOR: JEFFREYDOC PHYSICIAN: REFERRING PHYSICIAN: MILLIE HALL MD DATE OF SERVICE: 08/21/19 Discharge Plan Patient Name: VANESA HURTADO Facility: [facility]:[place] : 1950 Planned Disposition: Prison Facility Anticipated Discharge Date: Discharge Date: Expected LOS: Initial Reviewer: [email or web address] Initial Review Date: 08/21/2019 Generated: 08/21/19 4:51 pm Comments DCP- Discharge Planning Updated by [email or web address]: Sangita Iglesias on 08/21/19 1:[address] Patient Name: VANESA HURTADO Admission Status: Elective Accout number: [id number] Admission Date: 08-20-2019 : 1950 Admission Diagnosis: Attending: MILLIE HALL Current LOS: 1 Anticipated DC Date: Planned Disposition: Prison Facility Primary Insurance: MEDICARE A & B Discharge Planning Comments: CM met with patient and his Amy at bedside after explaining CM role and obtaining verbal consent. Patient has been at [facility] in [place] [phone] plans to return there upon discharge. Patient feels this would be a safe discharge. CM discussed availability / needs of home health and medical equipment. Patient denies any discharge needs at this time. CM will continue to follow and assist as needed with discharge planning / needs. Room Worker: Sangita Iglesias DCPIA - Discharge Planning Initial Assessment Updated by [email or web address]: Sangita Iglesias on 08/21/19 2:28 pm * Is the patient Alert and Oriented? Yes * How many steps to enter\exit or inside your home? * PCP AURY * Pharm[facility] * Preadmission Environment Prison Facility * Facility Name [facility] * List name and contact numbers for known caregivers / representatives who currently or will assist patient after discharge: AMY HURTADO - - [phone] * Verbal permission to speak to the caregivers and representatives has been obtained from the patient. Yes * Community resources currently utilized None * Additional services required to return to the preadmission environment? No * Can the patient safely return to the preadmission environment? Yes * Has this patient been hospitalized within the prior 30 days at any hospital? Yes External Providers External Provider: [facility](provides inp Next Contact Date: Service Request Date: Service Type: Resolution: Reviewer: Comments: Last DP export: 08/21/19 1:51 p Patient Name: VANESA HURTADO Page [phone] at 1551 All edits/amendments must be made on the electronic document DICTATION DATE: 08/21/191550 PROPELLER TESTER: CARLYLE 08/21/191550 RPT#: [id number] DC DATE: STATUS: ADM IN [facility] [address] [place] [address] END OF REPORT
--- NOTE | 2019-08-21 17:37 | NUR ---
EDIN WITH [facility] AT BEDSIDE, DISCUSSING OPTIONS WITH PATIENT RE: INPATIENT CARE, CLOSE TO HIS HOME
--- NOTE | 2019-08-21 19:00 | NUR ---
BEDSIDE REPORT AND SHIFT ASSESSMENT COMPLETE. ASSISTED KASI FARRELL WITH CHG BATH AND LINEN CHANGE. R IJ CVL DRESSING CDI, SEE IV FLOW SHEET. VSS, NO SIGNS OF ACUTE DISTRESS NOTED. PT C/O PAIN UPON URINATION, HENDRIX CHECKED. CALL LIGHT IN REACH, WILL CONTINUE TO MONITOR.
--- NOTE | 2019-08-21 19:23 | MORECARE ---
CASE MANAGEMENT DISCHARGE SUMMARY PATIENT: VANESA HURTADO UNIT: [id number] ADM DATE: 08/20/19 AGE: 69 : 50 SEX: M ROOM/BED: D[facility] AUTHOR: JEFFREY,DOC PHYSICIAN: REFERRING PHYSICIAN: MILLIE HALL MD DATE OF SERVICE: 08/21/19 Discharge Plan Patient Name: VANESA HURTADO Facility: [facility]:[place] : 1950 Planned Disposition: Half-Way Facility Anticipated Discharge Date: Discharge Date: Expected LOS: Initial Reviewer: [email or web address] Initial Review Date: 08/21/2019 Generated: 08/21/19 8:23 pm Comments DCP- Discharge Planning Updated by [email or web address]: Sangita Iglesias on 08/21/19 6:[address] Patient and family spoke with Dr. Conte regarding dialysis. Family and patient have elected to go on hospice for comfort care. PAUL spoke with and she stated that she would like for him to be placed closer to home. CM asked if they would prefer to go back to [place] if available. PAUL contacted [place] to see what Hospice companies they have contracts with. Ciara with [place] stated that the patient would have to pay for room and board for Hospice or they might could see if patient would qualify for Medicaid. PAUL relayed this information to Amy and gave her Ciara number to call. PAUL also spoke with Amy in regards to once patient is weaned off of medications to keep up his blood pressure he may in route or here before he could be transported. Amy stated that she understood. PAUL spoke with family and DEMETRIUS signed for [facility]. PAUL called Earl with [facility] to let him know about referral. Amy patients stated she had to go back home today. Amy gave additional phone numbers [phone]. son Solis [phone], son Og [phone]. if needed. Earl form [facility] came by to see patient and get records. He spoke with via phone and she will be back up here tomorrow to sign legal paperwork. DCP- Discharge Planning Updated by [email or web address]: Sangita Iglesias on 08/21/19 1:[address] Patient Name: VANESA HURTADO Admission Status: Elective Accout number: [id number] Admission Date: 08-20-2019 : 1950 Admission Diagnosis: Attending: MILLIE HALL Current LOS: 1 Anticipated DC Date: Planned Disposition: Half-Way Facility Primary Insurance: MEDICARE A & B Discharge Planning Comments: CM met with patient and his Amy at bedside after explaining CM role and obtaining verbal consent. Patient has been at [facility] in [place] [phone] plans to return there upon discharge. Patient feels this would be a safe discharge. CM discussed availability / needs of home health and medical equipment. Patient denies any discharge needs at this time. CM will continue to follow and assist as needed with discharge planning / needs. Branch Lead: Sangita MARADIAGA - Discharge Planning Initial Assessment Updated by [email or web address]: Sangita Iglesias on 08/21/19 2:28 pm * Is the patient Alert and Oriented? Yes * How many steps to enter\exit or inside your home? * PCP AURY * [facility] * Preadmission Environment Half-Way Facility * Facility Name [facility] * List name and contact numbers for known caregivers / representatives who currently or will assist patient after discharge: AMY HURTADO - - [phone] * Verbal permission to speak to the caregivers and representatives has been obtained from the patient. Yes * Community resources currently utilized None * Additional services required to return to the preadmission environment? No * Can the patient safely return to the preadmission environment? Yes * Has this patient been hospitalized within the prior 30 days at any hospital? Yes Last DP export: 08/21/19 2:51 p Patient Name: VANESA HURTADO Page 38984 at 1923 All edits/amendments must be made on the electronic document DICTATION DATE: 08/21/191922 AUDIO/VISUAL MANAGER: CARLYLE 08/21/191922 RPT#: [id number] DC DATE: STATUS: ADM IN [facility] [address] [place] [address] END OF REPORT
--- NOTE | 2019-08-21 19:30 | MORECARE ---
CASE MANAGEMENT DISCHARGE SUMMARY PATIENT: VANESA HURTADO UNIT: [id number] ADM DATE: 08/20/19 AGE: 69 : 50 SEX: M ROOM/BED: D[facility] AUTHOR: JEFFREY,DOC PHYSICIAN: REFERRING PHYSICIAN: MILLIE HALL MD DATE OF SERVICE: 08/21/19 Discharge Plan Patient Name: VANESA HURTADO Facility: [facility]:[place] : 1950 Planned Disposition: Nursing Home Facility Anticipated Discharge Date: Discharge Date: Expected LOS: Initial Reviewer: [email or web address] Initial Review Date: 08/21/2019 Generated: 08/21/19 8:30 pm Comments DCP- Discharge Planning Updated by [email or web address]: Sangita Iglesias on 08/21/19 6:[address] Patient and family spoke with Dr. Conte regarding dialysis. Family and patient have elected to go on hospice for comfort care. PAUL spoke with and she stated that she would like for him to be placed closer to home. CM asked if they would prefer to go back to [place] if available. PAUL contacted [place] to see what Hospice companies they have contracts with. Ciara with [place] stated that the patient would have to pay for room and board for Hospice or they might could see if patient would qualify for Medicaid. PAUL relayed this information to Amy and gave her Ciara number to call. PAUL also spoke with Amy in regards to once patient is weaned off of medications to keep up his blood pressure he may in route or here before he could be transported. Amy stated that she understood. PAUL spoke with family and DEMETRIUS signed for [facility]. PAUL called Earl with [facility] to let him know about referral. Amy patients stated she had to go back home today. Amy gave additional phone numbers [phone]. son Solis [phone], son Og [phone]. if needed. Earl form [facility] came by to see patient and get records. He spoke with via phone and she will be back up here tomorrow to sign legal paperwork. Plan to admit to hospice 08/22/19 DCP- Discharge Planning Updated by [email or web address]: Sangita Iglesias on 08/21/19 1:[address] Patient Name: VANESA HURTADO Admission Status: Elective Accout number: [id number] Admission Date: 08-20-2019 : 1950 Admission Diagnosis: Attending: MILLIE HALL Current LOS: 1 Anticipated DC Date: Planned Disposition: Nursing Home Facility Primary Insurance: MEDICARE A & B Discharge Planning Comments: CM met with patient and his Amy at bedside after explaining CM role and obtaining verbal consent. Patient has been at [facility] [phone] plans to return there upon discharge. Patient feels this would be a safe discharge. CM discussed availability / needs of home health and medical equipment. Patient denies any discharge needs at this time. CM will continue to follow and assist as needed with discharge planning / needs. Radiotelephone Operator: Sangita Iglesias DCPIA - Discharge Planning Initial Assessment Updated by [email or web address]: Sangita Iglesias on 08/21/19 2:28 pm * Is the patient Alert and Oriented? Yes * How many steps to enter\exit or inside your home? * PCP A[facility]Y * [facility] * Preadmission Environment Nursing Home Facility * Facility Name [facility] * List name and contact numbers for known caregivers / representatives who currently or will assist patient after discharge: AMY HURTADO - - [phone] * Verbal permission to speak to the caregivers and representatives has been obtained from the patient. Yes * Community resources currently utilized None * Additional services required to return to the preadmission environment? No * Can the patient safely return to the preadmission environment? Yes * Has this patient been hospitalized within the prior 30 days at any hospital? Yes Last DP export: 08/21/19 6:23 p Patient Name: VANESA HURTADO Page 67938 at 1930 All edits/amendments must be made on the electronic document DICTATION DATE: 08/21/191929 LEGAL EXECUTIVE ASSISTANT: CARLYLE 08/21/191929 RPT#: [id number] DC DATE: STATUS: ADM IN [facility] [address] [place] [address] END OF REPORT
--- NOTE | 2019-08-21 21:00 | NUR ---
REPOSITIONED PT ON L SIDE. DENIES ANY OTHER NEEDS AT THIS TIME. CALL LIGHT IN REACH, WILL CONTINUE TO MONITOR.
--- NOTE | 2019-08-21 22:05 | NUR ---
SPOKE WITH JACKIE MCKINNON APN ABOUT LOW B/P. HE SUGGESTED I PAGE RENAL, RENAL PAGED.
--- NOTE | 2019-08-21 22:09 | NUR ---
SPOKE WITH DR NICKERSON, NEW ORDERS RECEIVED.
--- NOTE | 2019-08-21 23:00 | NUR ---
REASSESSMENT COMPLETE, SEE FLOWSHEET. PT REQUESTING SIP OF WATER, TOLERATED WELL. ABX GIVEN PER MAR. CALL LIGHT IN REACH, WILL CONTINUE TO MONITOR.
[2019-08-22] VITALS (61 sets, daily range): BP systolic 77–102; BP diastolic 51–74
--- NOTE | 2019-08-22 01:00 | NUR ---
REPOSITIONING COMPLETE. DENIES ANY OTHER NEEDS AT THIS TIME.
--- NOTE | 2019-08-22 03:00 | NUR ---
REASSESSMENT COMPLETE, SEE FLOW SHEET. URINE SPECIMEN COLLECTED AND SENT TO LAB. CALL LIGHT IN REACH, WILL CONTINUE TO MONITOR.
[2019-08-22 04:42] LABS: CREATININE - URINE 29.7 mg/dL (30-125); PROTEIN - URINE 32.4 mg/dL (0.0-11.9)
[2019-08-22 05:23] LABS: BASOPHILS 0 % (0-2); HEMATOCRIT 29.8 % (42.0-54.0); HEMOGLOBIN 9.7 g/dL (13.5-17.5); IMMATURE GRANULOCYTES 0.7 % (0-5); LYMPHOCYTES 3.2 % (15-50); MCH 24.7 pg (26.0-34.0); MCHC 32.6 g/dL (31.0-37.0); MCV 75.8 fL (80.0-100.0); MONOCYTES 8.2 % (2-11); NEUTROPHILS 86.9 % (40-80); PLATELET COUNT 105 10x3/uL (130-400); RBC 3.93 10x6/uL (4.20-6.10); RDW 23.1 % (11.5-14.5); WBC 7.1 10x3/uL (4.8-10.8)
--- NOTE | 2019-08-22 05:30 | NUR ---
PARTIAL LINEN CHANGE AND HENDRIX CARE COMPLETE. VSS, NO SIGNS OF ACUTE DISTRESS NOTED. CALL LIGHT IN REACH, WILL CONTINUE TO MONITOR.
[2019-08-22 05:52] LABS: ALBUMIN 1.9 g/dL (3.4-5.0); ANION GAP 14.3 mmol/L (8-16); BILIRUBIN - TOTAL 1.23 mg/dL (0.2-1.3); CALCIUM 8.3 mg/dL (8.5-10.1); CARBON DIOXIDE 25.9 mmol/L (21.0-32.0); CREATININE - SERUM 3.6 mg/dL (0.6-1.3); MAGNESIUM - SERUM 1.4 mg/dL (1.8-2.4); PHOSPHOROUS 3.9 mg/dL (2.5-4.9); PROTEIN - SERUM 5.7 g/dL (6.4-8.2)
[2019-08-22 05:53] LABS: POTASSIUM - SERUM 3.2 mmol/L (3.5-5.1)
--- NOTE | 2019-08-22 09:14 | EC ---
PATIENT:VANESA HURTADO DATE OF SERVICE: 08/20/19 SEX: M MEDICAL RECORD: [id number] DATE OF : [birth year] LOCATION:[place] [address] AGE OF PATIENT: 69 ADMISSION DATE: 08/20/19 REFERRING PHYSICIAN: INTERPRETING PHYSICIAN: CHIKI MARTINEZ MD ECHOCARDIOGRAM REPORT ECHO CHARGES 5 ECHO LIMITED Date: 08/20/19 1 DOPPLER ECHO COLOR FLOW 2 DOPPLER ECHO PULSE CLINICAL DIAGNOSIS: HEART FAILURE ECHOCARDIOGRAPHIC MEASUREMENTS (adult normal given) AC root (d.<3.7cm) 0 cm LV Septum d (<1.2 cm> 0 cm Valve Excursion 0 cm LV Septum (systole) 0 cm Left Atria (s.<4.0cm> 0 cm LVPW d(<1.2cm) 0 cm RV (d.<2.3cm) 0 cm LVPW (sytole) 0 cm LV diastole(<5.6CM) 0 cm MV E-F(>70mm/sec) 0 cm LV systole 0 cm LVOT Diameter 0 cm MV exc.(>10mm) 0 cm Est.ejection fraction (50-75%) % DOPPLER: LVIT cm/sec A 0 cm/sec E 0 cm/sec LA 0 cm/sec RVSP 30.9 mmHg LVOT 0 cm/sec AOP1/2T m/s Asc. Ao 0 cm/sec RVOT 0 cm/sec RA 0 cm/sec PA cm/sec AV Gradient Peak 0 mmHg AV Mean 0 mmHg AV Area 0 cm MV Gradient Peak 0 mmHg MV Mean 0 mmHg MV Area 0 cm COMMENTS: Curator: Claire HOWELL Specialist Physician: 1 Dr. Martinez TAPE# PACS Pericardial Effusion N DATE OF SERVICE: 08/20/2019 ECHOCARDIOGRAM FINDINGS: 1. Left ventricular chamber size is dilated. Left ventricular systolic function is markedly reduced at 20%. 2. Left atrium, right atrium and right ventricular chamber sizes are dilated giving 4-chamber dilatation. 3. Valvular structures have normal structure and motion. ECHOCARDIOGRAM REPORT [id number] VANESA HURTADO 4. Doppler interrogation reveals mild mitral regurgitation, mild tricuspid regurgitation, no other valvular insufficiency or stenosis. Pulmonary systolic pressure is estimated at 31 mmHg. 5. No evidence of pericardial effusion or left ventricular thrombus. 6. ICD was interrogated. He has had no significant ventricular or atrial dysrhythmias. Normal pacing of right atrium and right ventricle. TRANSINT:[id number] Voice Confirmation ID: [id number] DOCUMENT ID: [id number] CHIKI MARTINEZ MD at 0914 CC: [id number] DICTATION DATE: 08/20/19 1358 BEREAVEMENT PROGRAM COORDINATOR: 08/20/19 2300 ADM IN [facility] [address] [place] [id number]
--- NOTE | 2019-08-22 19:00 | NUR ---
REPORT RECEIVED FROM DAY SHIFT NURSE. PT HAS BEEN ADMITTED TO INPATIENT HOSPICE. PLEASE SEE NEW RECORD FOR FURTHER INFORMATION.
[2019-08-23] MEDS ORDERED: MORPHINE 44 MG/1 M1 IV (07:10)
[2019-08-23] MEDS ORDERED: LORAZEPAM1 MG/0.5 M SL (07:10)
[2019-08-23] MEDS ORDERED: TYLENOL650 MG RC (07:11)
[2019-08-23] MEDS ORDERED: COLACE100 MG PO (07:13)
[2019-08-23] MEDS ORDERED: ATROPINE SULFA3.5 GM OP (07:14)
--- NOTE | 2019-08-23 08:50 | MORECARE ---
CASE MANAGEMENT DISCHARGE SUMMARY PATIENT: VANESA HURTADO UNIT: [id number] ADM DATE: 08/20/19 AGE: 69 : 50 SEX: M ROOM/BED: [facility] AUTHOR: JEFFREYDOC PHYSICIAN: REFERRING PHYSICIAN: MILLIE HALL MD DATE OF SERVICE: 08/23/19 Discharge Plan Patient Name: VANESA HURTADO Facility: [facility]:[place] : 1950 Planned Disposition: Hospice Home Anticipated Discharge Date: Discharge Date: 08/22/2019 Expected LOS: Initial Reviewer: [id number] Initial Review Date: 08/21/2019 Generated: 08/23/19 9:50 am Comments DCP- Discharge Planning Updated by [email or web address]: Sangita Iglesias on 08/23/19 7:[address] Patient Name: VANESA HURTADO Encounter No: [id number] : 1950 Primary Insurance: MEDICARE A & B Anticipated DC Date: Planned Disposition: Hospice Home External Planned Provider: : DISCHARGED TO [facility] DCP follow-up note: Patient and family in agreement with discharge plan. No changes to plan. Case management will follow and assist as needed. Sangita Iglesias DCP- Discharge Planning Updated by [id number]: Sangita Iglesias on 08/21/19 6:[address] Patient and family spoke with Dr. Conte regarding dialysis. Family and patient have elected to go on hospice for comfort care. PAUL spoke with and she stated that she would like for him to be placed closer to home. PAUL asked if they would prefer to go back to [facility] if available. PAUL contacted [facility] to see what Hospice companies they have contracts with. Ciara with [facility] stated that the patient would have to pay for room and board for Hospice or they might could see if patient would qualify for Medicaid. PAUL relayed this information to Amy and gave her Ciara number to call. PAUL also spoke with Amy in regards to once patient is weaned off of medications to keep up his blood pressure he may in route or here before he could be transported. Amy stated that she understood. PAUL spoke with family and DEMETRIUS signed for [facility]. CM called Earl with [facility] to let him know about referral. Amy patients stated she had to go back home today. Amy gave additional phone numbers [phone]. son Solis [phone], son Og [phone]. if needed. Earl valdez [facility] came by to see patient and get records. He spoke with via phone and she will be back up here tomorrow to sign legal paperwork. Plan to admit to hospice 08/22/19 DCP- Discharge Planning Updated by [id number]: Sangita Iglesias on 08/21/19 1:[address] Patient Name: VANESA HURTADO Admission Status: Elective Accout number: [id number] Admission Date: 08-20-2019 : 1950 Admission Diagnosis: Attending: MILLIE HALL Current LOS: 1 Anticipated DC Date: Planned Disposition: Senior Living Facility Primary Insurance: MEDICARE A & B Discharge Planning Comments: CM met with patient and his Amy at bedside after explaining CM role and obtaining verbal consent. Patient has been at [facility] in [place] [phone] plans to return there upon discharge. Patient feels this would be a safe discharge. CM discussed availability / needs of home health and medical equipment. Patient denies any discharge needs at this time. CM will continue to follow and assist as needed with discharge planning / needs. Stacker Straightener: Sangita Iglesias DCPIA - Discharge Planning Initial Assessment Updated by [email or web address]: Sangita Iglesias on 08/21/19 2:28 pm * Is the patient Alert and Oriented? Yes * How many steps to enter\exit or inside your home? * PCP [facility] * [facility] * Preadmission Environment Senior Living Facility * Facility Name [facility] * List name and contact numbers for known caregivers / representatives who currently or will assist patient after discharge: AMY HURTADO - - [phone] * Verbal permission to speak to the caregivers and representatives has been obtained from the patient. Yes * Community resources currently utilized None * Additional services required to return to the preadmission environment? No * Can the patient safely return to the preadmission environment? Yes * Has this patient been hospitalized within the prior 30 days at any hospital? Yes Coverage Notice Reviewer: [id number] - Sangita Iglesias Notice Issued Date-Time: 08/21/2019 15:05 Notice Type: Patient Choice Letter Notice Delivered To: Family Member Relationship to Patient: Spouse [employer] Cutter Hand Name: AMY HURTADO Delivery Method: HAND - Hand Delivered Radha Days: Prior Verbal Notification: Recipient Understood Notice: Yes Recipient Signature: Yes Med Rec Note Co-signed by Attending: Coverage Notice Comment: Last DP export: 08/21/19 6:30 p Patient Name: VANESA HURTADO Page [phone] at 0850 All edits/amendments must be made on the electronic document DICTATION DATE: 08/23/19 0850 [employer] L[employer]UP LINE BACK FEEDER: CARLYLE 08/23/19 0850 RPT#: [id number] DC DATE:08/22/19 STATUS: DIS IN [facility] [address] [place] [address] END OF REPORT
== END 2019-08-22 21:00 | disposition hospice, inpatient (51) | DRG 291 ==
LOC: EDBD 06:05 → D.CVICU 06:05
PROVIDERS: ADMIT Internal Medicine Nephrology; ATTEND Internal Medicine Nephrology
DX: I13.0 Hypertensive heart and chronic kidney disease with heart failure and stage 1 through stage 4 chronic kidney disease, or unspecified chronic kidney disease (principal); I50.23 Acute on chronic systolic (congestive) heart failure; R40.2114 Coma scale, eyes open, never, 24 hours or more after hospital admission; N18.4 Chronic kidney disease, stage 4 (severe); N39.0 Urinary tract infection, site not specified; D68.9 Coagulation defect, unspecified; N17.9 Acute kidney failure, unspecified; R57.9 Shock, unspecified; R60.1 Generalized edema; Z95.0 Presence of cardiac pacemaker; I10 Essential (primary) hypertension; M10.9 Gout, unspecified; I42.9 Cardiomyopathy, unspecified; R06.02 Shortness of breath; I48.0 Paroxysmal atrial fibrillation; R40.2364 Coma scale, best motor response, obeys commands, 24 hours or more after hospital admission; R40.2244 Coma scale, best verbal response, confused conversation, 24 hours or more after hospital admission

== ENCOUNTER 2019-08-22 20:37 | Inpatient (IN) | payer OTHER ==
[~2019-08-22] VITALS: Ht 177.8 cm; Wt 100.0 kg
[2019-08-22] VITALS (14 sets, daily range): BP systolic 72–91; BP diastolic 50–68; BMI 30.6
--- NOTE | 2019-08-22 21:00 | NUR ---
PT ADMITTED TO INPATIENT HOSPICE IN ROOM CV7. PT IS AWAKE AND ALERT IN BED TALKING WITH FAMILY AT THIS TIME. CALLED [facility] REGARDING PT PACEMAKER/DEFIBRILLATOR NEEDING TO BE TURNED OFF. WAS ADVISED THAT SOMEONE WOULD BE OUT TOMORROW TO TURN IT OFF BUT THAT FOR NOW WE COULD TAPE A MAGNET OVER IT AND IT WOULD TURN IT OFF. MAGNET ACQUIRED AND TAPED PER INSTRUCTIONS. PT AND FAMILY PRESENT ACKNOWLEDGED UNDERSTANDING OF WHAT WOULD HAPPEN FROM THAT POINT ON. STARTING TO SLOWLY TITRATE IV MEDICATIONS CONTROLLING BP, SEE IV DRIPS FLOWSHEET FOR DETAILS. PT REQUESTED MEDICATIONS FOR PAIN AND ANXIETY, PRN MEDICATIONS WERE PROVIDED. NO FURTHER NEEDS NOTED AT THIS TIME. ADMISSION ASSESSMENT AND HX WERE COMPLETED, SEE FLOWSHEET FOR DETAILS. NO SIGNS OF ACUTE DISTRESS NOTED. WILL CONTINUE TO MONITOR.
--- NOTE | 2019-08-22 23:00 | NUR ---
REASSESSMENT COMPLETED, SEE FLOWSHEET FOR DETAILS. PT IS LAYING IN BED WITH EYES CLOSED AT THIS TIME. PT REQUESTED MORE MEDICATIONS FOR PAIN AND ANXIETY, GAVE PER ORDER. NO FURTHER NEEDS NOTED. WILL CONTINUE TO MONITOR.
[2019-08-23] VITALS (8 sets, daily range): BP systolic 72–98; BP diastolic 49–75; BMI 31.6
--- NOTE | 2019-08-23 01:00 | NUR ---
PT IS LAYING IN BED WITH EYES CLOSED AT THIS TIME. PT WILL AWAKEN BREIFLY AND ANSWER QUESTIONS. FAMILY AT BEDSIDE. NO SIGNS OF ACUTE DISTRESS. WILL CONTINUE TO MONITOR.
--- NOTE | 2019-08-23 03:00 | NUR ---
PT IS LAYING IN BED WITH EYES CLOSED. NO NEEDS VOICED OR NOTED AT THIS TIME. FAMILY CONTINUES TO SIT AT BEDSIDE. NO SIGNS OF ACUTE DISTRESS. WILL CONTINUE TO MONITOR.
--- NOTE | 2019-08-23 05:00 | NUR ---
PT IS LAYING IN BED WITH EYES CLOSED AT THIS TIME. NO NEEDS VOICED. NO SIGNS OF ACUTE DISTRESS. WILL CONTINUE TO MONITOR.
--- NOTE | 2019-08-23 07:00 | NUR ---
REC'D RPORT AND RESUMED CARE, PATIENT SITTING UP IN BED WITH EYES CLOSED, DOES NOT RESPOND VERBAL STIMULI, AGONAL RESPIRATIONS NOTED 9, SHOWING PACED ON MONITOR, ASSESSMENT COMPLETED PER FLOWSHEET, FAMILY RESTING AT BEDSIDE, NO NEEDS AT THIS TIME
[2019-08-23] MEDS ORDERED: LORAZEPAM1 MG/0.5 M SL (07:10)
[2019-08-23] MEDS ORDERED: MORPHINE 44 MG/1 M1 IV (07:10)
[2019-08-23] MEDS ORDERED: TYLENOL650 MG RC (07:11)
[2019-08-23] MEDS ORDERED: COLACE100 MG PO (07:13)
[2019-08-23] MEDS ORDERED: ATROPINE SULFA3.5 GM OP (07:14)
--- NOTE | 2019-08-23 08:58 | MORECARE ---
CASE MANAGEMENT DISCHARGE SUMMARY PATIENT: VANESA HURTADO UNIT: [id number] ADM DATE: 08/22/19 AGE: 69 : 50 SEX: M ROOM/BED: [facility] AUTHOR: MARIZOL MURPHY PHYSICIAN: REFERRING PHYSICIAN: FAUSTINO HENSON MD DATE OF SERVICE: 08/23/19 Discharge Plan Patient Name: VANESA HURTADO Facility: [facility]:[place] : 1950 Planned Disposition: Anticipated Discharge Date: Discharge Date: Expected LOS: Initial Reviewer: [email or web address] Initial Review Date: 08/22/2019 Generated: 08/23/19 9:57 am Patient Name: VANESA HURTADO Page [phone] at 0858 All edits/amendments must be made on the electronic document DICTATION DATE: 08/23/1957 HARNESS INSTALLER: CARLYLE 08/23/1957 RPT#: [id number] DC DATE: STATUS: ADM IN [facility] [address] [place] [address] END OF REPORT
--- NOTE | 2019-08-23 09:00 | NUR ---
DR MAHARAJ AND PADMINI SCHAEFER AT BEDSIDE, NO NEW ORDERS AT THIS TIME
--- NOTE | 2019-08-23 10:17 | NUR ---
INITIAL CONTACT TO [facility], PER SHAHANA BECAUSE PATIENT HAS NOT PASSED OR ON THE VENT SHE CAN NOT DO EARLY REFERRAL, WE AR TO CALL BACK AT TIME OF .
--- NOTE | 2019-08-23 11:15 | NUR ---
CHG BATH GIVEN, TOLERATED WITHOUT DIFFICULTY, ANNSWERNG YES AND NO QUESTIONS, VSS AT THIS TIME, PACING ON MONITOR, FAMILY WITH NO NEEDS
--- NOTE | 2019-08-23 11:45 | NUR ---
TRANSFERRED VIA BED TO 1212, WITH PERSONNEL X2, TOLERATED TRANSFER WIOUT DIFFICULTY
--- NOTE | 2019-08-23 12:00 | NUR ---
PT ARRIVED TO FLOOR VIA BED WITH ICU STAFF AND FAMILY PRESENT. TRANSFERRED INTO NEW BED. VSS AND WNL. NO SIGNS OF DISTRESS OR DISCOMFORT NOTED AT THIS TIME, WILL CONT TO FOLLOW POC
--- NOTE | 2019-08-23 14:00 | NUR ---
PT RESTING IN BED, NO SIGNS OF DISTRESS OR DISCOMFORT NOTED. FAMILY AT BEDSIDE. WILL CONT TO FOLLOW POC
--- NOTE | 2019-08-23 16:00 | NUR ---
PT RESTING COMFORTABLY IN BED. FAMILY AT BEDSIDE. DENIES ANY NEEDS AT THIS TIME, WILL CONT TO FOLLOW POC
--- NOTE | 2019-08-24 07:30 | NUR ---
PT LAYING IN BED. ALERT AND ORIENTED. VSS AT THIS TIME. RR EVEN AND UNLABORED. DENIES NEEDS OR PAIN AT THIS TIME. WILL CONTINUE TO MONITOR.
--- NOTE | 2019-08-24 11:00 | NUR ---
PT REASTING COMFORTABLY. DENIES NEEDS AT THIS TIME. FAMILY AT BEDSIDE.
[2019-08-24 11:30] VITALS: Ht 177.8 cm; Wt 100.0 kg
[2019-08-24 12:19] VITALS: BP 97/66
--- NOTE | 2019-08-24 14:46 | NUR ---
PT REPOSITIONED TO COMFORT. DENIES NEEDS OR PAIN AT THIS TIME. FAMILY STILL AT BEDSIDE
--- NOTE | 2019-08-24 16:10 | NUR ---
I have reviewed this patient and I concur with the Shift Assessment completed by the Licensed Practical Nurse today this shift.
--- NOTE | 2019-08-24 19:15 | NUR ---
PATIENT LYING IN BED WITH EYES CLOSED. PATIENT OPENS EYES TO VOICES. SON SITTING IN BEDSIDE CHAIR. PATIENT GIVEN MORPHINE AND SAYS HE IS COMFORTABLE AT THIS TIME. MAGNET PLACED OVER PACEMAKER. ENCOURAGED PATIENT TO CALL WITH ANY NEEDS. BED IN LOW POSITION. CALL LIGHT AND BEDSIDE TABLE WITHING REACH.
[2019-08-24 19:44] VITALS: BP 90/64
--- NOTE | 2019-08-24 21:45 | NUR ---
PATIENT LYING IN BED SLEEPING. SON AT BEDSIDE. SON STATES THAT PATIENT SEEMS COMFORTABLE. ENCOURAGED SON TO CALL WITH ANY NEEDS. BED IN LOW POSITION. CALL LIGHT AND BEDSIDE TABLE IN REACH.
--- NOTE | 2019-08-24 23:28 | NUR ---
PATIENT IN BED SLEEPING. SON AT BEDSIDE. PATIENT'S BREATHING IS LABORED. SON STATES THAT THE PATIENT SEEMS COMFORTABLE HE SLEEPS. ENCOURAGED TO CALL WITH ANY NEEDS. BED IN LOW POSITION. CALL LIGHT IN REACH.
--- NOTE | 2019-08-25 03:46 | NUR ---
PATIENT IN BED SLEEPING. SON STATES THAT PATIENT SEEMS TO BE COMFORTABLY SLEEPING. ENCOURAGED TO CALL WITH ANY NEEDS. BED IN LOW POSITION. CALL LIGHT IN REACH.
--- NOTE | 2019-08-25 06:08 | NUR ---
PATIENT LYING IN BED. ASKED PATIENT IF THEY NEEDED ANYTHING, BUT COULD NOT MAKE OUT WHAT PATIENT WAS SAYING. PATIENT DID NOT SEEM TO BE IN ANY PAIN. SON STATED THAT PATIENT DID NOT SEEM TO BE IN ANY PAIN OR NEED ANYTHING AT THIS TIME. ENCOURAGED SON TO CALL WITH ANY NEEDS. BED IN LOW POSITION. CALL LIGHT IN REACH.
--- NOTE | 2019-08-25 07:24 | NUR ---
PT LAYING IN BED. RR EVEN AND UNLABORED. PT FAMILY MEMBER AT BEDSIDE. NO DISTRERSS NOTED. WILL CONTINUE TO MONITOR.
[2019-08-25 19:42] VITALS: BP 105/77
--- NOTE | 2019-08-25 23:03 | NUR ---
PATIENT LYING IN BED. AT BEDSIDE. PATIENT CARLOS ANY PAIN AT THIS TIME. PATIENT STATES THAT HIS LEGS DON'T HURT LONG HE DOESN'S MOVE THEM. PATIENTS SAYS HE HAS NO NEEDS AT THIS TIME. BED IN LOW POSITION. CALL LIGHT IN REACH.
--- NOTE | 2019-08-26 03:30 | NUR ---
0330ANSWERED PATIENTS CALL LIGHT. PATIENT LYING IN BED. AT BEDSIDE. PATIENTS STATED HE COULD NOT BREATHE. PUT HUMIDIFIER ON OXYGEN. 0350 PATIENT LYING IN BED. PATIENT STATED HE IS HAVING AN EASIER TIME BREATHING. ENCOURAGED PATIENT TO CALL WITH NEEDS. BED IN LOW POSITION. CALL LIGHT WITHIN REACH.
--- NOTE | 2019-08-26 07:20 | NUR ---
PT LYING IN BED WITH HOB ELEVATED. AROUSES TO VOICE AND STIMULATION AND WILL ANSWER YOU WITH YES AND NO TO QUESTIONS. PT WILL NOT OPEN EYES. PT COMFORTABLE AT THIS TIME. WILL CONTINUE TO MONITOR. PT'S AT BEDSIDE. BED LOW. CL IN REACH.
[2019-08-26 07:54] VITALS: BP 91/67
--- NOTE | 2019-08-26 09:37 | NUR ---
LT LYING IN BED. EYES CLOSED. CHEST RISING AND FALLING. O2 AT 2L VIA NC. AT BEDSIDE. RUMA CTA DRAINING. WILL COTNINUE TO MONITOR. BED LOW. CL IN REACH.
--- NOTE | 2019-08-26 09:40 | NUR ---
REPORTED TO SILVANO WASHINGTON THAT PT'S BP THIS AM WAS 89/65 AND I CHECKED IT ON OTHER ARM AND IT WAS 91/67. HE VERBALIZED UNDERSTANDING. HE STATES IF PT IS NOT COMFORTABLE MAKE USRE TO GIVE PRN MEDICATIONS. I VERBALIZED UNDERSTANDING.
--- NOTE | 2019-08-26 11:20 | NUR ---
I have reviewed this patient and I concur with the Shift Assessment completed by the Licensed Practical Nurse today this shift.
--- NOTE | 2019-08-26 11:42 | NUR ---
PT LYING IN BED WITH HOB ELEVATED. RESTING QUIETLY. PT SHOWS NO S/S OF DISTRESS. PT'S IN SHOWER. WILL CONTINUE TO MONITOR. BED LOW. CL IN REACH.
--- NOTE | 2019-08-26 12:10 | NUR ---
PLACED MEPILEX ON BACK OF LEFT CALF AND BUTTOCK PER WOUND DRESSING ORDER.
--- NOTE | 2019-08-26 17:36 | NUR ---
PT LYING IN BED. EYES CLOSED. CHEST RISING AND FALLING. O2 AT 2L VIA NC. PT'S AT BEDSIDE. HENDRIX CATH EMPTIED. WILL CONTINUE TO MONITOR. BED LOW. CL IN REACH.
--- NOTE | 2019-08-26 18:18 | NUR ---
EACH LINE IN RIGHT IJ CVL FLUSHED WITH 10ML OF NS. WHITE LINE HARD TO FLUSH AND NO BLOOD DRAW BACK. RED AND BLUE LINES EASY FLUSH AND EASY BLOOD DRAW BACK.
--- NOTE | 2019-08-26 19:45 | NUR ---
RECIEVED BEDSIDE REPORT. EVENING ROUNDS COMPLETED. VSS, AAOX1. PT APPEARS LETHARGIC, VERBALIZE ONLY FEW WORDS. SPOUSE AT BEDSIDE. GENERALIZED SWELLING NOTED. PACEMAKER NOTED, DRESSING C/D/I. PT ON 2L O2, SPO2 100% AT THIS TIME. HENDRIX INTACT, URINE APPEARS CONC. PT DENIES ANY NEED FOR COMFORT CARE AT THIS TIME. WILL CPOC.
[2019-08-26 19:53] VITALS: BP 99/70
--- NOTE | 2019-08-26 21:48 | NUR ---
PT REPOSITIONED. AND PT PLACED UNDERNEATH PT'S RIGHT LEG FOR COMFORT. PT VOICED THANKS. WILL CPOC.
[2019-08-27 09:48] VITALS: BP 90/69
--- NOTE | 2019-08-27 10:16 | NUR ---
TALKED TO HOSPICE NURSE ABOUT GETTING THE DIFIBRILLATOR TURNED OFF.
--- NOTE | 2019-08-27 10:32 | NUR ---
HOSPICE NURSE IS HERE AT BEDSIDE.
--- NOTE | 2019-08-27 12:45 | NUR ---
HOSPICE NURSE GIA CALLED DR HEATON OFFICE. INOCENCIO RN # [phone] AND OPTION 2. THEY WILL BE SENDING A REP TO DC THE DIFIBRILLATOR. SHOULD BE ABLE TO DC TO HOME TOMORROW ON ORAL MORPHINE. WANTS HIM TO GO HOME TOO. CASE MANAGEMENT WILL BE WORKING ON IT, AND HE WOULD HAVE TO BE TRANSPORTED HOME BY [facility]. GIA THE HOSPICE NURSE WHO CAME BY,#[phone].
--- NOTE | 2019-08-27 14:23 | NUR ---
CLEANED PATIENTS YASMIN AREA. HENDRIX IS IN PLACE. REPLACED STAT LOCK ON LEFT LEG FOR HENDRIX CATHETER. DID ORAL CARE, WITH SWABS AND MOUTH MOISTUREIZER.
[2019-08-27 15:40] VITALS: BP 91/65
--- NOTE | 2019-08-27 17:48 | NUR ---
CHANGED ALL THE PILLOW CASES AND REARRANGED THE PATIENT. HIS LEFT LEG IS WEEPING SLIGHTLY. ARRANGED HIS GOWN. HE IS RESTING QUIETLY AT THIS TIME. HE DENIES ANY NEEDS. THE SUBLINGUAL MORPHINE SEEMS TO BE WORKING WELL. IS AT BEDSIDE.
[2019-08-27 19:56] VITALS: BP 95/70
--- NOTE | 2019-08-27 20:19 | NUR ---
EVENING ROUNDS COMPLETED. VSS, AAOX1. PT APPEARS LETHARGIC, VERBALIZE ONLY FEW WORDS. HENDRIX INTACT, RIJ CVL INTACT AND PATENT. SPOUSE AT BEDSIDE. GENERALIZED SWELLING NOTED. SBP 95. PT DENIES ANY FURTHER NEEDS AT THIS TIME. WILL CPOC.
[2019-08-28 04:44] VITALS: BP 91/62
--- NOTE | 2019-08-28 07:10 | NUR ---
REPORT RECEIVED FROM TRAINING OFFICER AND PATIENT CARE ASSUMED. PATIENT LAYING IN BED WITH EYES CLOSED AND BREATHING EVENLY. AT BS. PATIENT IS STABLE AND VSS. SPENT SEVERAL MINUTES WITH CONSOLING HER. WILL CONTINUE WITH PLAN OF CARE. SR UP X 2 BED IN LOW POSITION AND CALL LIGHT IN REACH.
--- NOTE | 2019-08-28 10:27 | NUR ---
Nutrition Follow-up: Chart reviewed. Pt continues on hospice with little to no PO intake on regular diet. Per nursing notes, is (understandably) emotional. Will respect the families privacy and not visit at this time. Please consult nutrition if more aggressive nutrition intervention medically indicated or desired. RD Following.
--- NOTE | 2019-08-28 13:22 | NUR ---
NO FLU SHOT [facility] IS BEING DISCHARGED HOME ON HOSPICE
--- NOTE | 2019-08-28 14:24 | NUR ---
PATIENT IS STABLE AND UNCHANGED. ORDERS RECEIVED FOR DC. WRITTEN AND VERBAL INSTRUCTIONS GIVEN TO . VERBALIZED UNDERSTANDING AND SIGNED DC INSTRUCTIONS. PATIENT TO STRETCHER VIA AMBULANCE PERSONNEL FOR TRANSPORT TO HOME FOR HOSPICE CARE.
== END 2019-08-28 14:26 | disposition home or self-care (01) | DRG 951 ==
LOC: D.CVICU 20:37 → D.M3 21:00 → D.CVICU 21:00 → D.M3 08-23 12:30
PROVIDERS: ADMIT Legal Medicine; ATTEND Legal Medicine
DX: Z51.5 Encounter for palliative care (principal)